=== PATIENT | female | born 1945 | race Caucasian/White ===

== ENCOUNTER → 2017-11-11 11:41 | Outpatient (CLI) | payer MEDICARE, OTHER, SELFPAY ==
[2017-11-11 13:43] LABS: Add Manual Diff / Slide Review NO; Basophils Percent Auto 0.8 % (0-2); Eosinophils Percent Auto 1.8 % (2-4); Hematocrit 41.9 % (36-46); Hemoglobin 14.3 g/dL (12.0-16.0); Lymphocytes Percent Auto 20.6 % (25-40); Mean Corpuscular HGB Conc 34.2 % (30-36); Mean Corpuscular Hemoglobin 32.3 PG (26-34); Mean Corpuscular Volume 94.5 fL (80-100); Monocytes Percent Auto 7.5 % (3-14); Neutrophils Absolute Auto 6000 /uL (3000-5900); Neutrophils Percent Auto 69.3 % (50-75); Platelet Count 182 X10^3/uL (150-400); Red Blood Cell Count 4.43 X10^6/uL (4.0-5.2); Red Cell Distribution Width 12.7 % (11.6-14.8); White Blood Cell Count 8.6 X10^3/uL (4.5-11.0)
[2017-11-11 14:01] LABS: Alanine Aminotransferase 56 IU/L (9-52); Albumin 4.4 g/dL (3.5-5.0); Albumin Globulin Ratio 1.5 (1.0-2.8); Alkaline Phosphatase 66 U/L (38-126); Amylase 65 U/L (30-110); Aspartate Aminotransferase 34 IU/L (14-36); Bilirubin Total 0.9 mg/dL (0.2-1.3); Blood Urea Nitrogen 30 mg/dL (7-17); Calcium 10.3 mg/dL (8.4-10.2); Carbon Dioxide 28 mmol/L (22-32); Chloride 99 mmol/L (98-107); Estimated Glomerular Filt Rate 44.2 mL/min (>60); Globulin 2.9 g/dL (1.7-4.1); Glucose 219 mg/dL (80-110); HEMOLYSIS < 15 (0-50); Sodium 138 mmol/L (137-145); Total Protein 7.3 g/dL (6.3-8.2)
[2017-11-11 14:03] LABS: Potassium 5.4 mmol/L (3.4-5.1)
[2017-11-11 14:27] LABS: TSH w/ Reflex to FT4 7.84 uIU/mL (0.47-4.68)
[2017-11-11 14:52] LABS: Free T4, Direct Thyroxine 1.56 ng/dL (0.78-2.19)
== END ==
PROVIDERS: PCP Internal Medicine; Visit Provider Internal Medicine
DX: R11.0 Nausea (principal)
CPT/HCPCS: 36415; 80053; 82150; 84439; 84443; 85025

== ENCOUNTER → 2017-11-12 10:52 | Outpatient (CLI) | payer MEDICARE, OTHER, SELFPAY ==
[2017-11-12 14:12] LABS: BUN Creatinine Ratio 25.8 (6-22); Blood Urea Nitrogen 31 mg/dL (7-17); Calcium 10.1 mg/dL (8.4-10.2); Carbon Dioxide 28 mmol/L (22-32); Chloride 100 mmol/L (98-107); Estimated Glomerular Filt Rate 44.2 mL/min (>60); Glucose 230 mg/dL (80-110); HEMOLYSIS < 15 (0-50); Potassium 5.4 mmol/L (3.4-5.1); Sodium 138 mmol/L (137-145)
== END ==
PROVIDERS: PCP Internal Medicine; Visit Provider Internal Medicine
DX: E87.5 Hyperkalemia (principal)
CPT/HCPCS: 36415; 80048

== ENCOUNTER → 2017-11-17 11:56 | Outpatient (CLI) | payer MEDICARE, OTHER, SELFPAY ==
[2017-11-17 14:04] LABS: BUN Creatinine Ratio 23.3 (6-22); Blood Urea Nitrogen 28 mg/dL (7-17); Calcium 9.7 mg/dL (8.4-10.2); Carbon Dioxide 28 mmol/L (22-32); Chloride 101 mmol/L (98-107); Estimated Glomerular Filt Rate 44.2 mL/min (>60); Glucose 175 mg/dL (80-110); HEMOLYSIS < 15 (0-50); Potassium 4.5 mmol/L (3.4-5.1); Sodium 139 mmol/L (137-145)
== END ==
PROVIDERS: PCP Internal Medicine; Visit Provider Internal Medicine
DX: E87.5 Hyperkalemia (principal)
CPT/HCPCS: 36415; 80048

== ENCOUNTER 2018-01-25 06:55 | Day surgery (SDC) | payer MEDICARE, OTHER, SELFPAY ==
[2018-01-25 07:55] VITALS: BP 95/63; PULSE 60; RESP 17; TEMP 36.3; O2SAT 99; BMI 26.5
[2018-01-25] MEDS: PROPARACAINE 0.5% OPHTH SOL 2 DROPS EYE-OP (07:55)
[2018-01-25] MEDS: CATARACT EYE COMPOUND (10 DROPS/SYRINGE) 3 DROPS EYE-OP (08:05)
[2018-01-25] MEDS: LIDOCAINE JELLY 2% 5 ML 1 APPLIC TOP (09:02)
[2018-01-25] MEDS: CHONDROIDTIN/SOD HYALURONATE 1.05 ML SYRINGE INTRAOCULA (09:02)
[2018-01-25] MEDS: PHENYLEPHRINE/LIDOCAINE VIAL (OR) 0.2 ML EYE-OP (09:03)
[2018-01-25] MEDS: MOXIFLOXACIN OPHTH DROPS 3 ML BOTTLE 2 DROPS INJ (09:03)
[2018-01-25] MEDS: TETRACAINE 0.5% OPHTH DROPS 15 ML 2 DROPS EYE-RIGHT (09:04)
[2018-01-25] MEDS: TRIAMCINOLONE 50 MG/5 ML VIAL INJ (09:04)
[2018-01-25] MEDS: BALANCED SALT IRRIG SOLN NO.2 500 ML, EPINEPHrine 1 MG IRR (09:05)
[2018-01-25 09:15] VITALS: BP 101/62; PULSE 59; RESP 16; TEMP 36.4; O2SAT 99
--- NOTE | 2018-01-25 09:16 | P.OP.PRE_ITS ---
Pre-operative Note Interval Note Changes: No
--- NOTE | 2018-01-25 09:16 | PM.PREOP ---
Pre-operative Note Interval Note Changes: No
--- NOTE | 2018-01-25 09:17 | P.OP_ITS ---
Operative Date/Time/Diagnoses Pre-op diagnosis: Nuclear cataract right eye Procedure & Clinicians Procedure: Cataract Surgery Same procedure as scheduled: Yes Surgeon: Louie Aden Anesthesia Type: MAC +/- and Sedation Operative Notes Procedure in detail: Patient brought to the operating suite. Tetracaine drops placed in the right eye. Patient was prepped and draped in sterile manner. Wire lid speculum was placed in the eye. Betadine drops were placed on the eye. This was irrigated. Lidocaine jelly was placed on the eye. A paracentesis port was created with a side-port blade. 0.1 mL 1% preservative free lidocaine was injected into the anterior chamber. The anterior chamber was deepened with viscoelastic. 2.6 mm keratome was used to create a temporal clear corneal incision. Cystotome and Utrata forceps were used to create continuous tear capsulorrhexis. Balanced salt solution was used to hydro dissect the nucleus. The phacoemulsification handpiece was inserted and the nucleus was removed using the stop and chop technique. The irrigation aspiration handpiece was inserted and the remaining cortex was removed. Anterior chamber was deepened with viscoelastic. An Dykes ZCB00 intraocular lens with a power of 21.5 was injected into the capsular bag. Irrigation aspiration handpiece was inserted and the remaining viscoelastic was removed. Incision was hydrated with balanced salt solution and found to be leak free with pressure with Weck- Jaimee sponges. 0.1 mL Vigamox injected anterior chamber. 0.3 mL Kenalog 10 mg was injected subconjunctivally. Lid speculum was removed. The patient left the operating room in excellent condition. Complications: none Condition: stable Disposition: same day surgery
== END 2018-01-25 09:30 | disposition home or self-care (01) ==
LOC: OR 06:56
PROVIDERS: PCP Internal Medicine; Visit Provider Ophthalmology
DX: H25.11 Age-related nuclear cataract, right eye (principal); I10 Essential (primary) hypertension; E11.9 Type 2 diabetes mellitus without complications; I11.9 Hypertensive heart disease without heart failure
CPT/HCPCS: J0171; J2250; J3301

== ENCOUNTER 2018-02-08 07:28 | Day surgery (SDC) | payer MEDICARE, OTHER, SELFPAY ==
[2018-02-08 07:46] VITALS: BP 108/70; PULSE 61; RESP 16; TEMP 36.2; O2SAT 97
[2018-02-08] MEDS: CATARACT EYE COMPOUND (10 DROPS/SYRINGE) 3 DROPS EYE-OP (08:07)
[2018-02-08] MEDS: PROPARACAINE 0.5% OPHTH SOL 2 DROPS EYE-OP (08:07)
--- NOTE | 2018-02-08 09:13 | SUR.OPER ---
Supine on eye stretcher, head on extension cradle secured with tape. Arms tucked at sides with blanket. Pillow under knees.
[2018-02-08] MEDS: LIDOCAINE JELLY 2% 5 ML 1 APPLIC TOP (09:15)
[2018-02-08] MEDS: PHENYLEPHRINE/LIDOCAINE VIAL (OR) 0.2 ML EYE-OP (09:15)
[2018-02-08] MEDS: CHONDROIDTIN/SOD HYALURONATE 1.05 ML SYRINGE INTRAOCULA (09:16)
[2018-02-08] MEDS: TETRACAINE 0.5% OPHTH DROPS 15 ML 2 DROPS EYE-LEFT (09:16)
[2018-02-08] MEDS: MOXIFLOXACIN OPHTH DROPS 3 ML BOTTLE 2 DROPS INJ (09:16)
[2018-02-08] MEDS: TRIAMCINOLONE 50 MG/5 ML VIAL INJ (09:17)
[2018-02-08] MEDS: BALANCED SALT IRRIG SOLN NO.2 500 ML, EPINEPHrine 1 MG IRR (09:17)
[2018-02-08 09:30] VITALS: BP 106/68; PULSE 59; RESP 15; TEMP 36.4; O2SAT 97
--- NOTE | 2018-02-08 09:33 | P.OP.PRE_ITS ---
Pre-operative Note Interval Note Changes: No
--- NOTE | 2018-02-08 09:33 | PM.PREOP ---
Pre-operative Note Interval Note Changes: No
--- NOTE | 2018-02-08 09:34 | P.OP_ITS ---
Operative Date/Time/Diagnoses Pre-op diagnosis: Nuclear Cataract Left eye Post-op diagnosis: same Procedure & Clinicians Surgeon: Louie Aden Anesthesia Type: MAC +/- and Sedation Operative Notes Procedure in detail: Patient brought to the operating suite. Tetracaine drops placed in the left eye. Patient was prepped and draped in sterile manner. Wire lid speculum was placed in the eye. Betadine drops were placed on the eye. This was irrigated. Lidocaine jelly was placed on the eye. A paracentesis port was created with a side-port blade. 0.1 mL 1% preservative free lidocaine was injected into the anterior chamber. The anterior chamber was deepened with viscoelastic. 2.6 mm keratome was used to create a temporal clear corneal incision. Cystotome and Utrata forceps were used to create continuous tear capsulorrhexis. Balanced salt solution was used to hydro dissect the nucleus. The phacoemulsification handpiece was inserted and the nucleus was removed using the stop and chop technique. The irrigation aspiration handpiece was inserted and the remaining cortex was removed. Anterior chamber was deepened with viscoelastic. An Dykes ZCB00 intraocular lens with a power of 21.0 was injected into the capsular bag. Irrigation aspiration handpiece was inserted and the remaining viscoelastic was removed. Incision was hydrated with balanced salt solution and found to be leak free with pressure with Weck- Jaimee sponges. 0.1 mL Vigamox injected anterior chamber. 0.3 mL Kenalog 10 mg was injected subconjunctivally. Lid speculum was removed. The patient left the operating room in excellent condition. Complications: none Condition: stable Disposition: same day surgery
== END 2018-02-08 09:42 | disposition home or self-care (01) ==
PROVIDERS: PCP Internal Medicine; Visit Provider Ophthalmology
DX: H25.12 Age-related nuclear cataract, left eye (principal); I10 Essential (primary) hypertension; E11.9 Type 2 diabetes mellitus without complications; Z79.84 Long term (current) use of oral hypoglycemic drugs; I51.9 Heart disease, unspecified; Z95.818 Presence of other cardiac implants and grafts
CPT/HCPCS: J0171; J2250; J3010; J3301

== ENCOUNTER → 2018-03-23 10:17 | Outpatient (CLI) | payer OTHER, MEDICARE, SELFPAY ==
--- NOTE | 2018-03-23 | DI.CT.S_ITS ---
PROCEDURE: CT LE RT WO CON INDICATIONS: RIGHT ANKLE PAIN TECHNIQUE: Noncontrast 1-1.5 mm axial sections acquired from above the tibiotalar joint to the bottom of the calcaneus, with coronal and sagittal reformats. COMPARISON: None. FINDINGS: Image quality: Excellent. Bones: Patient is status post prior surgery in great toe for hallux valgus correction with post osteotomy changes in distal shaft of first metatarsal bone and fusion of first interphalangeal joint. No gross hardware loosening or failure is seen. Osteoarthritic changes are noted in first MTP joint. Osteoarthritic changes also noted throughout second through fifth interphalangeal joints. No acute fracture or dislocation is seen. No suspicious bony lesion is identified. Incidentally noted of healing distal fibular shaft fracture with callous formation surrounding fracture sites. No significant displacement or angulation. Soft tissues: A there is no gross soft tissue mass or fluid collection. Plantar neurosis is grossly intact. Achilles tendon is intact. Extensor, flexor, and peroneus tendons are intact. IMPRESSION: 1. Post surgical changes from prior osteotomy in first metatarsal head and fusion of first interphalangeal joint for hallux valgus deformity correction. No gross hardware complication. 2. Healing oblique distal fibular shaft fracture with no significant displacement or angulation. No other fracture or dislocation is seen. 3. Mild osteoarthritic changes in first MTP joint and second through fifth interphalangeal joints. Dictated by: Maikel Alfred M.D. on 03/23/2018 at 14:51 Approved by: Maikel Alfred M.D. on 03/23/2018 at 15:04
== END ==
PROVIDERS: PCP Internal Medicine; Visit Provider Orthopaedic Surgery
DX: M25.571 Pain in right ankle and joints of right foot (principal); M19.071 Primary osteoarthritis, right ankle and foot; S82.831D Other fracture of upper and lower end of right fibula, subsequent encounter for closed fracture with routine healing; Z98.1 Arthrodesis status
CPT/HCPCS: 73700

== ENCOUNTER 2018-05-26 09:44 | Emergency (ER) | payer MEDICARE, OTHER, SELFPAY ==
[2018-05-26 09:52] VITALS: BP 134/81; PULSE 93; RESP 20; TEMP 36.3; O2SAT 93; BMI 26.2
--- NOTE | 2018-05-26 09:54 | ED.CHESTPAIN ---
HPI - Chest Pain General Chief Complaint: Chest Pain Stated Complaint: 'Heart Problem' Time Seen by Provider: 05/26/18 09:54 Source: patient Mode of arrival: ambulatory Limitations: no limitations History of Present Illness HPI narrative: 72F non smoker with history of CHF presents with a family friend and chief complaint of SOB for the past couple days. patient complains of increased shortness of breath with exertion or lying flat. She has some increased swelling in her ankles. She denies any significant salty food or increase fluid intake nor has she missed any of her Lasix. She denies chest pain she is not dizzy or lightheaded. She denies fever, chills nor cough. MD complaint: other Onset (ago): day(s) Duration: constant Pain radiation: none Relieving factors: rest Exacerbating factors: exertion Associated symptoms: dyspnea and leg swelling Related Data Home Medications Medication Instructions Recorded Confirmed carvedilol 12.5 mg PO BID #0 12/22/09 05/26/18 Menthol/M Salicylate 1 applic TOPICAL TID PRN 05/26/18 05/26/18 aspirin 81 mg PO DAILY 05/26/18 05/26/18 capsaicin 1 applic TOPICAL QID 05/26/18 05/26/18 cetirizine 10 mg PO CONT 05/26/18 05/26/18 cholecalciferol (vitamin D3) 2,000 unit PO DAILY 05/26/18 05/26/18 [Vitamin D3] fluticasone 2 spray INTRANASAL DAILY 05/26/18 05/26/18 furosemide 40 mg PO BID PRN 05/26/18 05/26/18 glimepiride 2 mg PO DAILY 05/26/18 05/26/18 glucose 16 g PO Q15M PRN 05/26/18 05/26/18 nitroglycerin [Nitrostat] 0.4 mg SUBLINGUAL PRN PRN 05/26/18 05/26/18 omeprazole 40 mg PO DAILY 05/26/18 05/26/18 ondansetron 8 mg PO Q8H PRN 05/26/18 05/26/18 peg 400-propylene glycol 1 drp EYE-BOTH QID 05/26/18 05/26/18 sacubitril-valsartan 1 tab PO BID 05/26/18 05/26/18 sennosides [senna] 8.6 mg PO BEDTIME 05/26/18 05/26/18 simvastatin 20 mg PO BEDTIME 05/26/18 05/26/18 spironolactone 37.5 mg PO DAILY 05/26/18 05/26/18 Allergies Allergy/AdvReac Type Severity Reaction Status Date / Time codeine [CODEINE] Allergy Severe rash, Verified 05/26/18 09:52 vomiting prochlorperazine Allergy Severe rash, Verified 05/26/18 09:52 [From COMPAZINE] vomiting Review of Systems Constitutional Denies chills, Reports fatigue, Denies fever(s), Denies lethargy and Reports weakness Eyes Denies change in vision, Denies eye discharge, Denies irritation and Denies loss of vision ENT Ears, Nose, Mouth, and Throat: Denies change in voice, Denies neck pain and Denies sore throat Cardiovascular Denies chest pain, Reports pedal edema, Reports edema, Denies irregular heart rhythm, Denies lightheadedness, Denies palpitations, Reports dyspnea, Reports dyspnea on exertion and Denies orthopnea Respiratory Denies cough, Reports dyspnea, Reports dyspnea on exertion and Denies wheezing Gastrointestinal Gastrointestinal: Denies abdominal pain, Denies change in bowel habits, Denies diarrhea, Denies nausea and Denies vomiting Genitourinary Denies hematuria, Denies flank pain, Denies urinary incontinence and Denies urinary urgency Musculoskeletal Denies neck pain Integumentary/Breasts Denies pruritus, Denies erythema, Denies rash and Denies wounds Neurologic Denies confusion, Denies loss of vision and Reports weakness Psychiatric Denies anxiety, Denies confusion, Denies depression, Denies homicidal ideation and Denies suicidal ideation Endocrine Reports fatigue and Denies palpitations Hematologic/Lymphatic Denies easy bruising Allergic/Immunologic Denies wheezing PFSH Social History household members: friend(s) and none Smoking Status: Never smoker Social History household members: friend(s) and none Smoking Status: Never smoker Exam Narrative Exam Narrative: GENERAL: 72-year-old female appears younger than stated age and is in mild distress. No obvious respiratory difficulty HEAD: Atraumatic. Normocephalic. No temporal or scalp tenderness. EYES: Pupils equal round and reactive. Extraocular motions intact. No scleral icterus. No injection or drainage. ENT: Nose without bleeding, purulent drainage or septal hematoma. Throat without erythema, tonsillar hypertrophy or exudate. Uvula midline. Airway patent. NECK: Trachea midline. No JVD or lymphadenopathy. Supple, nontender, no meningeal signs. CARDIOVASCULAR: Regular rate and rhythm without murmurs, gallops, or rubs. RESPIRATORY: bibasilar crackles. GASTROINTESTINAL: Abdomen soft, non-tender, nondistended. No hepato-splenomegaly, or palpable masses. No guarding. EXTREMITIES: mild bilateral lower extremity pitting edema BACK: Nontender without deformity or crepitance. No flank tenderness. NEURO: AOx3. SKIN: No rash or erythema. Initial Vital Signs Initial Vital Signs: Vital Signs Temperature 97.4 F L 05/26/18 09:52 Pulse Rate 93 H 05/26/18 09:52 Respiratory Rate 20 05/26/18 09:52 Blood Pressure 134/81 05/26/18 09:52 Pulse Oximetry 93 05/26/18 09:52 Course Orders Ordered: Discontinued Medications Furosemide (Lasix) 40 mg IV NOW ONE Stop: 05/26/18 12:04 Last Admin: 05/26/18 12:38 Dose: 40 mg Sodium Chloride (Normal Saline 0.9%) 1,000 mls @ 150 mls/hr IV CONT AMARJIT Last Infusion: 05/26/18 12:06 Dose: 0 mls/hr Admin: 05/26/18 11:38 Dose: 150 mls/hr Vital Signs - 8 hr 05/26/18 13:03 05/26/18 15:25 Pulse Rate 79 74 Respiratory Rate 21 25 H Blood Pressure 118/61 Blood Pressure [Left Arm] 124/71 Pulse Oximetry 92 93 MDM - Chest Pain Medical Records Data Attestation: I reviewed the patient's medical records. Lab Data Attestation: I reviewed the patient's lab results. Result diagrams: 05/26/18 10:00 05/26/18 10:00 Lab Results 05/26/18 05/26/18 05/26/18 Range/Units 10:00 10:00 10:00 WBC 11.1 H (4.5-11.0) X10^3/uL RBC 4.27 (4.0-5.2) X10^6/uL Hgb 12.4 (12.0-16.0) g/dL Hct 38.5 (36-46) % MCV 90.2 (80-100) fL MCH 29.1 (26-34) PG MCHC 32.3 (30-36) % RDW 13.6 (11.6-14.8) % Plt Count 444 H (150-400) X10^3/uL Neut % (Auto) 78.1 H (50-75) % Lymph % (Auto) 13.0 L (25-40) % [place] % (Auto) 6.6 (3-14) % Eos % (Auto) 1.5 L (2-4) % Baso % (Auto) 0.8 (0-2) % Neut # (Auto) 8600 H (8352-0614) /uL Lymph # (Auto) 1400 (8673-7177) /uL [place] # (Auto) 700 (0-900) /uL Eos # (Auto) 200 (0-450) /uL Baso # (Auto) 100 (0-100) /uL D-Dimer 597 H (<230) ng/mL Sodium 138 (137-145) mmol/L Potassium 4.5 (3.4-5.1) mmol/L Chloride 104 (98-107) mmol/L Carbon Dioxide 23 (22-32) mmol/L BUN 25 H (7-17) mg/dL Creatinine 1.20 H (0.52-1.04) mg/dL Estimated GFR 44.2 L (>60) mL/min BUN/Creatinine Ratio 20.8 (6-22) Glucose 190 H (80-110) mg/dL Calcium 8.9 (8.4-10.2) mg/dL Total Bilirubin 0.8 (0.2-1.3) mg/dL AST 43 H (14-36) IU/L ALT 51 (9-52) IU/L Alkaline Phosphatase 99 (38-126) U/L Total Creatine Kinase 32 (30-135) U/L CK-MB (CK-2) TNP CK-MB (CK-2) Rel Index TNP Troponin I < 0.012 (0.01-0.034) ng/mL B-Natriuretic Peptide (<100) Total Protein 7.1 (6.3-8.2) g/dL Albumin 3.7 (3.5-5.0) g/dL Globulin 3.4 (1.7-4.1) g/dL Albumin/Globulin Ratio 1.1 (1.0-2.8) Lipase 44 (23-300) U/L 05/26/18 Range/Units 10:00 WBC (4.5-11.0) X10^3/uL RBC (4.0-5.2) X10^6/uL Hgb (12.0-16.0) g/dL Hct (36-46) % MCV (80-100) fL MCH (26-34) PG MCHC (30-36) % RDW (11.6-14.8) % Plt Count (150-400) X10^3/uL Neut % (Auto) (50-75) % Lymph % (Auto) (25-40) % [place] % (Auto) (3-14) % Eos % (Auto) (2-4) % Baso % (Auto) (0-2) % Neut # (Auto) (4553-2549) /uL Lymph # (Auto) (6312-0105) /uL [place] # (Auto) (0-900) /uL Eos # (Auto) (0-450) /uL Baso # (Auto) (0-100) /uL D-Dimer (<230) ng/mL Sodium (137-145) mmol/L Potassium (3.4-5.1) mmol/L Chloride (98-107) mmol/L Carbon Dioxide (22-32) mmol/L BUN (7-17) mg/dL Creatinine (0.52-1.04) mg/dL Estimated GFR (>60) mL/min BUN/Creatinine Ratio (6-22) Glucose (80-110) mg/dL Calcium (8.4-10.2) mg/dL Total Bilirubin (0.2-1.3) mg/dL AST (14-36) IU/L ALT (9-52) IU/L Alkaline Phosphatase (38-126) U/L Total Creatine Kinase (30-135) U/L CK-MB (CK-2) CK-MB (CK-2) Rel Index Troponin I (0.01-0.034) ng/mL B-Natriuretic Peptide 1680 H (<100) Total Protein (6.3-8.2) g/dL Albumin (3.5-5.0) g/dL Globulin (1.7-4.1) g/dL Albumin/Globulin Ratio (1.0-2.8) Lipase (23-300) U/L Urine Dip Bedside Urine Glucose Negative Bedside Urine Bilirubin - Negative Bedside Urine Ketone - Negative Urine Specific [place] 1.015 Bedside Urine Occult Blood - Negative Bedside Urine pH 6.5 Bedside Urine Protein - Negative Bedside Urine Urobilinogen - Negative Bedside Urine Nitrite - Negative Bedside Urine Leukocytes - Negative Esterase Imaging Data CT scan - chest: Radiologist's impression: [address] [address] [address] Scan Report Signed Patient: Sudha LarsenR#: [id number] : 1946Acct:[id number] Age/Sex: 72 / FDate of Service: 05/26/18 Loc: ED Accession Number: [id number] Procedure: CT angio chest PE protocol Ordering Provider: Yousif Fuller D.O. PROCEDURE: CT ANGIO CHEST PE PROTOCOL INDICATIONS: chest pain, shortness of breath, hypoxia, critical dimer TECHNIQUE: After the administration of intravenous contrast, 2 mm thick sections acquired from the pulmonary apices to the posterior costophrenic angles. 3-dimensional maximum intensity projection (MIP) coronal and sagittal reformats were then acquired through the thorax. For radiation dose reduction, the following was used: automated exposure control, adjustment of mA and/or kV according to patient size. COMPARISON: [facility], CT, ANGIOGRAPHY CHEST AND ABDOMEN, 12/06/2012, 15:39. FINDINGS: Image quality: Excellent. Pulmonary arteries: Pulmonary arteries are normal in size, and demonstrate no intraluminal filling defects to suggest central pulmonary embolism. Lungs and pleura: There are small bilateral pleural effusion. Hazy groundglass opacities are seen scattered in bilateral lung polanco suggestive of pulmonary edema versus pneumonitis. 9 x 3 mm nodular density adjacent to lateral pleura of right lower lobe is seen. Small infiltrate/atelectasis are seen scattered in bilateral lower lung polanco. No pneumothorax. Central and peripheral airways are patent. Mediastinum: Heart size is markedly enlarged particularly involving left atrium and left ventricle, without pericardial effusion. Prominent mediastinal lymph nodes are seen measures up to 12 cm in short axis diameter in the precarinal space and up to 15 mm in short axis diameter in the subcarinal space.. Thoracic aorta is normal in caliber and enhancement. Esophagus is normal in caliber, without hiatal hernia. Bones and chest wall: Left chest wall pacemaker leads are seen in the region of right atrium, right ventricle and left ventricle. Breast implant is again seen. There is interval removal of previously noted left-sided breast implant. No suspicious bony lesions. Ribs and thoracic spine appear intact throughout. Thyroid gland is within normal limits. No axillary or supraclavicular adenopathy. Abdomen: Visualized upper abdominal solid organs appear normal in the early arterial phase of enhancement. IMPRESSION: 1. No evidence of pulmonary emboli. No thoracic aortic aneurysm. 2. Marked cardiomegaly, no pericardial effusion. Enlarged mediastinal lymph nodes, which may represent reactive inflammatory lymph nodes. 3. Small bilateral pleural effusions. Hazy groundglass opacity scattered throughout bilateral lung polanco suggestive of pulmonary edema/pneumonitis. No pneumothorax. 4. Patchy infiltrate/atelectasis scattered in bilateral lung bases. #3 mm subpleural nodule involving lateral aspect of right lower lobe, which could represent nodule infiltrate. Followup CT study is recommended. 5. Prior removal of left breast implant. Right breast implant appears grossly intact. Left chest wall pacemaker in situ. Dictated by: Maikel Alfred M.D. on 05/26/2018 at 11:07 Approved by: Maikel Alfred M.D. on 05/26/2018 at 11:28 Discharge Plan Departure Patient Disposition: Home Clinical Impression: Acute CHF Qualifiers: Heart failure type: unspecified Qualified Code(s): I50.9 - Heart failure, unspecified Discharge Date/Time: 05/26/18 15:26 Interventions: ED Discharge Assessment Last Done: 05/26/18 15:25 Instructions: DI for Heart Failure Activity Restrictions/Additional Instructions: *You have been diagnosed with [ acute CHF ] *What to do: * you currently take furosemide 40 mg by mouth twice daily. Please take an extra 1 at lunchtime each of the next 3 days. *Follow up with your primary care provider in 2-3 days, call for an appointment. Let them know you were seen in the Emergency Department and that we ask that you be seen in follow up *Return to ER if you should have any new, worsening or concerning symptoms Prescriptions: No Action carvedilol 12.5 mg Tablet 12.5 mg PO BID Qty: 0 RF: 0 furosemide 40 mg Tablet 40 mg PO BID PRN (Reason: extra fluid) RF: 0 sennosides [senna] 8.6 mg Tablet 8.6 mg PO BEDTIME RF: 0 cetirizine 10 mg Tablet 10 mg PO CONT RF: 0 omeprazole 40 mg Capsule,Delayed Release(Dr/Ec) 40 mg PO DAILY RF: 0 aspirin 81 mg Tablet,Delayed Release (Dr/Ec) 81 mg PO DAILY RF: 0 spironolactone 25 mg Tablet 37.5 mg PO DAILY RF: 0 glimepiride 2 mg Tablet 2 mg PO DAILY RF: 0 simvastatin 20 mg Tablet 20 mg PO BEDTIME RF: 0 glucose 4 gram Tablet,Chewable 16 g PO Q15M PRN (Reason: blood sugar) RF: 0 nitroglycerin [Nitrostat] 0.4 mg Tablet, Sublingual 0.4 mg Sublingual PRN PRN (Reason: Chest Pain) RF: 0 capsaicin 0.025 % Cream 1 applic TOPICAL QID RF: 0 ondansetron 4 mg Tablet,Disintegrating 8 mg PO Q8H PRN (Reason: Nausea) RF: 0 fluticasone 50 mcg/actuation [place],Suspension 2 spray INTRANASAL DAILY RF: 0 cholecalciferol (vitamin D3) [Vitamin D3] 1,000 unit Capsule 2,000 unit PO DAILY RF: 0 peg 400-propylene glycol 0.4-0.3 % Drops 1 drp EYE-BOTH QID RF: 0 sacubitril-valsartan 24-26 mg Tablet 1 tab PO BID RF: 0 Menthol/M Salicylate 15 % cream 1 applic Topical TID PRN (Reason: pain) RF: 0 Referrals: Roman Arenas MD [Primary Care Provider] -
--- NOTE | 2018-05-26 10:00 | DI.RAD.S_ITS ---
PROCEDURE: XR CHEST 2V INDICATIONS: SOB, CP TECHNIQUE: 2 views of the chest were acquired. COMPARISON: [facility], , CHEST 1 VIEW, 11/16/2016, 0:56. FINDINGS: Surgical changes and devices: Left chest wall cardiac device position is unchanged. Lungs and pleura: There is pulmonary vascular congestion. Underlying left lower lobe infiltrate cannot be excluded. No pleural effusions or pneumothorax. Mediastinum: Mediastinal contours are normal. Heart size is enlarged. Bones and chest wall: No suspicious bony abnormalities. Soft tissues appear unremarkable. IMPRESSION: Cardiomegaly and congestion. Cannot rule out small left infrahilar infiltrate. No gross pneumothorax. Dictated by: Maikel Alfred M.D. on 05/26/2018 at 10:43 Approved by: Maikel Alfred M.D. on 05/26/2018 at 10:45
[2018-05-26 10:08] LABS: Add Manual Diff / Slide Review NO; Basophils Absolute Auto 100 /uL (0-100); Basophils Percent Auto 0.8 % (0-2); Eosinophils Absolute Auto 200 /uL (0-450); Eosinophils Percent Auto 1.5 % (2-4); Hematocrit 38.5 % (36-46); Hemoglobin 12.4 g/dL (12.0-16.0); Lymphocytes Absolute Auto 1400 /uL (1100-4500); Mean Corpuscular HGB Conc 32.3 % (30-36); Mean Corpuscular Hemoglobin 29.1 PG (26-34); Mean Corpuscular Volume 90.2 fL (80-100); Monocytes Absolute Auto 700 /uL (0-900); Monocytes Percent Auto 6.6 % (3-14); Neutrophils Absolute Auto 8600 /uL (1500-7000); Neutrophils Percent Auto 78.1 % (50-75); Platelet Count 444 X10^3/uL (150-400); Red Blood Cell Count 4.27 X10^6/uL (4.0-5.2); Red Cell Distribution Width 13.6 % (11.6-14.8); White Blood Cell Count 11.1 X10^3/uL (4.5-11.0)
[2018-05-26 10:19] LABS: D Dimer 597 ng/mL (<230)
[2018-05-26 10:20] LABS: Alanine Aminotransferase 51 IU/L (9-52); Albumin 3.7 g/dL (3.5-5.0); Albumin Globulin Ratio 1.1 (1.0-2.8); Alkaline Phosphatase 99 U/L (38-126); Aspartate Aminotransferase 43 IU/L (14-36); BUN Creatinine Ratio 20.8 (6-22); Bilirubin Total 0.8 mg/dL (0.2-1.3); Blood Urea Nitrogen 25 mg/dL (7-17); Calcium 8.9 mg/dL (8.4-10.2); Carbon Dioxide 23 mmol/L (22-32); Chloride 104 mmol/L (98-107); Creatine Kinase 32 U/L (30-135); Estimated Glomerular Filt Rate 44.2 mL/min (>60); Globulin 3.4 g/dL (1.7-4.1); Glucose 190 mg/dL (80-110); HEMOLYSIS < 15 (0-50); Lipase 44 U/L (23-300); Potassium 4.5 mmol/L (3.4-5.1); Sodium 138 mmol/L (137-145); Total Protein 7.1 g/dL (6.3-8.2)
[2018-05-26 10:31] LABS: Troponin I < 0.012 ng/mL (0.01-0.034)
--- NOTE | 2018-05-26 10:45 | DI.CT.S_ITS ---
PROCEDURE: CT ANGIO CHEST PE PROTOCOL INDICATIONS: chest pain, shortness of breath, hypoxia, critical dimer TECHNIQUE: After the administration of intravenous contrast, 2 mm thick sections acquired from the pulmonary apices to the posterior costophrenic angles. 3-dimensional maximum intensity projection (MIP) coronal and sagittal reformats were then acquired through the thorax. For radiation dose reduction, the following was used: automated exposure control, adjustment of mA and/or kV according to patient size. COMPARISON: , CT, ANGIOGRAPHY CHEST AND ABDOMEN, 12/06/2012, 15:39. FINDINGS: Image quality: Excellent. Pulmonary arteries: Pulmonary arteries are normal in size, and demonstrate no intraluminal filling defects to suggest central pulmonary embolism. Lungs and pleura: There are small bilateral pleural effusion. Hazy groundglass opacities are seen scattered in bilateral lung polanco suggestive of pulmonary edema versus pneumonitis. 9 x 3 mm nodular density adjacent to lateral pleura of right lower lobe is seen. Small infiltrate/atelectasis are seen scattered in bilateral lower lung polanco. No pneumothorax. Central and peripheral airways are patent. Mediastinum: Heart size is markedly enlarged particularly involving left atrium and left ventricle, without pericardial effusion. Prominent mediastinal lymph nodes are seen measures up to 12 cm in short axis diameter in the precarinal space and up to 15 mm in short axis diameter in the subcarinal space.. Thoracic aorta is normal in caliber and enhancement. Esophagus is normal in caliber, without hiatal hernia. Bones and chest wall: Left chest wall pacemaker leads are seen in the region of right atrium, right ventricle and left ventricle. Breast implant is again seen. There is interval removal of previously noted left-sided breast implant. No suspicious bony lesions. Ribs and thoracic spine appear intact throughout. Thyroid gland is within normal limits. No axillary or supraclavicular adenopathy. Abdomen: Visualized upper abdominal solid organs appear normal in the early arterial phase of enhancement. IMPRESSION: 1. No evidence of pulmonary emboli. No thoracic aortic aneurysm. 2. Marked cardiomegaly, no pericardial effusion. Enlarged mediastinal lymph nodes, which may represent reactive inflammatory lymph nodes. 3. Small bilateral pleural effusions. Hazy groundglass opacity scattered throughout bilateral lung polanco suggestive of pulmonary edema/pneumonitis. No pneumothorax. 4. Patchy infiltrate/atelectasis scattered in bilateral lung bases. #3 mm subpleural nodule involving lateral aspect of right lower lobe, which could represent nodule infiltrate. Followup CT study is recommended. 5. Prior removal of left breast implant. Right breast implant appears grossly intact. Left chest wall pacemaker in situ. Dictated by: Maikel Alfred M.D. on 05/26/2018 at 11:07 Approved by: Maikel Alfred M.D. on 05/26/2018 at 11:28
[2018-05-26 11:16] LABS: B Type Natriuretic Peptide 1680 (<100)
[2018-05-26] MEDS: SODIUM CHLORIDE 0.9% 1,000 ML 150 ML IV (11:38)
[2018-05-26 11:50] VITALS: BP 126/66; PULSE 72; RESP 26; O2SAT 93
[2018-05-26] MEDS: FUROSEMIDE 40 MG/4 ML VIAL IV (12:38)
[2018-05-26 13:03] VITALS: BP 124/71; PULSE 79; RESP 21; O2SAT 92
[2018-05-26 15:25] VITALS: BP 118/61; PULSE 74; RESP 25; O2SAT 93
--- NOTE | 2018-05-26 20:20 | ED_ITS ---
HPI - Chest Pain General Chief Complaint: Chest Pain Stated Complaint: 'Heart Problem' Time Seen by Provider: 05/26/18 09:54 Source: patient Mode of arrival: ambulatory Limitations: no limitations History of Present Illness HPI narrative: 72F non smoker with history of CHF presents with a family friend and chief complaint of SOB for the past couple days. patient complains of increased shortness of breath with exertion or lying flat. She has some increased swelling in her ankles. She denies any significant salty food or increase fluid intake nor has she missed any of her Lasix. She denies chest pain she is not dizzy or lightheaded. She denies fever, chills nor cough. MD complaint: other Onset (ago): day(s) Duration: constant Pain radiation: none Relieving factors: rest Exacerbating factors: exertion Associated symptoms: dyspnea and leg swelling Related Data Home Medications Medication Instructions Recorded Confirmed carvedilol 12.5 mg PO BID #0 12/22/09 05/26/18 Menthol/M Salicylate 1 applic TOPICAL TID PRN 05/26/18 05/26/18 aspirin 81 mg PO DAILY 05/26/18 05/26/18 capsaicin 1 applic TOPICAL QID 05/26/18 05/26/18 cetirizine 10 mg PO CONT 05/26/18 05/26/18 cholecalciferol (vitamin D3) 2,000 unit PO DAILY 05/26/18 05/26/18 [Vitamin D3] fluticasone 2 spray INTRANASAL DAILY 05/26/18 05/26/18 furosemide 40 mg PO BID PRN 05/26/18 05/26/18 glimepiride 2 mg PO DAILY 05/26/18 05/26/18 glucose 16 g PO Q15M PRN 05/26/18 05/26/18 nitroglycerin [Nitrostat] 0.4 mg SUBLINGUAL PRN PRN 05/26/18 05/26/18 omeprazole 40 mg PO DAILY 05/26/18 05/26/18 ondansetron 8 mg PO Q8H PRN 05/26/18 05/26/18 peg 400-propylene glycol 1 drp EYE-BOTH QID 05/26/18 05/26/18 sacubitril-valsartan 1 tab PO BID 05/26/18 05/26/18 sennosides [senna] 8.6 mg PO BEDTIME 05/26/18 05/26/18 simvastatin 20 mg PO BEDTIME 05/26/18 05/26/18 spironolactone 37.5 mg PO DAILY 05/26/18 05/26/18 Allergies Allergy/AdvReac Type Severity Reaction Status Date / Time codeine [CODEINE] Allergy Severe rash, Verified 05/26/18 09:52 vomiting prochlorperazine Allergy Severe rash, Verified 05/26/18 09:52 [From COMPAZINE] vomiting Review of Systems Constitutional Denies chills, Reports fatigue, Denies fever(s), Denies lethargy and Reports weakness Eyes Denies change in vision, Denies eye discharge, Denies irritation and Denies loss of vision ENT Ears, Nose, Mouth, and Throat: Denies change in voice, Denies neck pain and Denies sore throat Cardiovascular Denies chest pain, Reports pedal edema, Reports edema, Denies irregular heart rhythm, Denies lightheadedness, Denies palpitations, Reports dyspnea, Reports dyspnea on exertion and Denies orthopnea Respiratory Denies cough, Reports dyspnea, Reports dyspnea on exertion and Denies wheezing Gastrointestinal Gastrointestinal: Denies abdominal pain, Denies change in bowel habits, Denies diarrhea, Denies nausea and Denies vomiting Genitourinary Denies hematuria, Denies flank pain, Denies urinary incontinence and Denies urinary urgency Musculoskeletal Denies neck pain Integumentary/Breasts Denies pruritus, Denies erythema, Denies rash and Denies wounds Neurologic Denies confusion, Denies loss of vision and Reports weakness Psychiatric Denies anxiety, Denies confusion, Denies depression, Denies homicidal ideation and Denies suicidal ideation Endocrine Reports fatigue and Denies palpitations Hematologic/Lymphatic Denies easy bruising Allergic/Immunologic Denies wheezing PFSH Social History household members: friend(s) and none Smoking Status: Never smoker Social History household members: friend(s) and none Smoking Status: Never smoker Exam Narrative Exam Narrative: GENERAL: 72-year-old female appears younger than stated age an d is in mild distress. No obvious respiratory difficulty HEAD: Atraumatic. Normocephalic. No temporal or scalp tenderness. EYES: Pupils equal round and reactive. Extraocular motions intact. No scleral icterus. No injection or drainage. ENT: Nose without bleeding, purulent drainage or septal hematoma. Throat without erythema, tonsillar hypertrophy or exudate. Uvula midline. Airway patent. NECK: Trachea midline. No JVD or lymphadenopathy. Supple, nontender, no meningeal signs. CARDIOVASCULAR: Regular rate and rhythm without murmurs, gallops, or rubs. RESPIRATORY: bibasilar crackles. GASTROINTESTINAL: Abdomen soft, non-tender, nondistended. No hepato- splenomegaly, or palpable masses. No guarding. EXTREMITIES: mild bilateral lower extremity pitting edema BACK: Nontender without deformity or crepitance. No flank tenderness. NEURO: AOx3. SKIN: No rash or erythema. Initial Vital Signs Initial Vital Signs: Vital Signs Temperature 97.4 F L 05/26/18 09:52 Pulse Rate 93 H 05/26/18 09:52 Respiratory Rate 20 05/26/18 09:52 Blood Pressure 134/81 05/26/18 09:52 Pulse Oximetry 93 05/26/18 09:52 Course Orders Ordered: Discontinued Medications Furosemide (Lasix) 40 mg IV NOW ONE Stop: 05/26/18 12:04 Last Admin: 05/26/18 12:38 Dose: 40 mg Sodium Chloride (Normal Saline 0.9%) 1,000 mls @ 150 mls/hr IV CONT AMARJIT Last Infusion: 05/26/18 12:06 Dose: 0 mls/hr Admin: 05/26/18 11:38 Dose: 150 mls/hr Vital Signs - 8 hr 05/26/18 13:03 05/26/18 15:25 Pulse Rate 79 74 Respiratory Rate 21 25 H Blood Pressure 118/61 Blood Pressure [Left Arm] 124/71 Pulse Oximetry 92 93 MDM - Chest Pain Medical Records Data Attestation: I reviewed the patient's medical records. Lab Data Attestation: I reviewed the patient's lab results. Result diagrams: 05/26/18 10:00 05/26/18 10:00 Lab Results 05/26/18 05/26/18 05/26/18 Range/Units 10:00 10:00 10:00 WBC 11.1 H (4.5-11.0) X10^3/uL RBC 4.27 (4.0-5.2) X10^6/uL Hgb 12.4 (12.0-16.0) g/dL Hct 38.5 (36-46) % MCV 90.2 (80-100) fL MCH 29.1 (26-34) PG MCHC 32.3 (30-36) % RDW 13.6 (11.6-14.8) % Plt Count 444 H (150-400) X10^3/uL Neut % (Auto) 78.1 H (50-75) % Lymph % (Auto) 13.0 L (25-40) % [place] % (Auto) 6.6 (3-14) % Eos % (Auto) 1.5 L (2-4) % Baso % (Auto) 0.8 (0-2) % Neut # (Auto) 8600 H (4948-8864) /uL Lymph # (Auto) 1400 (5810-2966) /uL [place] # (Auto) 700 (0-900) /uL Eos # (Auto) 200 (0-450) /uL Baso # (Auto) 100 (0-100) /uL D-Dimer 597 H (<230) ng/mL Sodium 138 (137-145) mmol/L Potassium 4.5 (3.4-5.1) mmol/L Chloride 104 (98-107) mmol/L Carbon Dioxide 23 (22-32) mmol/L BUN 25 H (7-17) mg/dL Creatinine 1.20 H (0.52-1.04) mg/dL Estimated GFR 44.2 L (>60) mL/min BUN/Creatinine Ratio 20.8 (6-22) Glucose 190 H (80-110) mg/dL Calcium 8.9 (8.4-10.2) mg/dL Total Bilirubin 0.8 (0.2-1.3) mg/dL AST 43 H (14-36) IU/L ALT 51 (9-52) IU/L Alkaline Phosphatase 99 (38-126) U/L Total Creatine Kinase 32 (30-135) U/L CK-MB (CK-2) TNP CK-MB (CK-2) Rel Index TNP Troponin I < 0.012 (0.01-0.034) ng/mL B-Natriuretic Peptide (<100) Total Protein 7.1 (6.3-8.2) g/dL Albumin 3.7 (3.5-5.0) g/dL Globulin 3.4 (1.7-4.1) g/dL Albumin/Globulin Ratio 1.1 (1.0-2.8) Lipase 44 (23-300) U/L 05/26/18 Range/Units 10:00 WBC (4.5-11.0) X10^3/uL RBC (4.0-5.2) X10^6/uL Hgb (12.0-16.0) g/dL Hct (36-46) % MCV (80-100) fL MCH (26-34) PG MCHC (30-36) % RDW (11.6-14.8) % Plt Count (150-400) X10^3/uL Neut % (Auto) (50-75) % Lymph % (Auto) (25-40) % [place] % (Auto) (3-14) % Eos % (Auto) (2-4) % Baso % (Auto) (0-2) % Neut # (Auto) (1271-7249) /uL Lymph # (Auto) (0182-1346) /uL [place] # (Auto) (0-900) /uL Eos # (Auto) (0-450) /uL Baso # (Auto) (0-100) /uL D-Dimer (<230) ng/mL Sodium (137-145) mmol/L Potassium (3.4-5.1) mmol/L Chloride (98-107) mmol/L Carbon Dioxide (22-32) mmol/L BUN (7-17) mg/dL Creatinine (0.52-1.04) mg/dL Estimated GFR (>60) mL/min BUN/Creatinine Ratio (6-22) Glucose (80-110) mg/dL Calcium (8.4-10.2) mg/dL Total Bilirubin (0.2-1.3) mg/dL AST (14-36) IU/L ALT (9-52) IU/L Alkaline Phosphatase (38-126) U/L Total Creatine Kinase (30-135) U/L CK-MB (CK-2) CK-MB (CK-2) Rel Index Troponin I (0.01-0.034) ng/mL B-Natriuretic Peptide 1680 H (<100) Total Protein (6.3-8.2) g/dL Albumin (3.5-5.0) g/dL Globulin (1.7-4.1) g/dL Albumin/Globulin Ratio (1.0-2.8) Lipase (23-300) U/L Urine Dip Bedside Urine Glucose Negative Bedside Urine Bilirubin - Negative Bedside Urine Ketone - Negative Urine Specific [place] 1.015 Bedside Urine Occult Blood - Negative Bedside Urine pH 6.5 Bedside Urine Protein - Negative Bedside Urine Urobilinogen - Negative Bedside Urine Nitrite - Negative Bedside Urine Leukocytes - Negative Esterase Imaging Data CT scan - chest: Radiologist's impression: [address] [address] [address] Scan Report Signed Patient: Sudha LarsenR#: [id number] : 6Acct:[id number] Age/Sex: 72 / FDate of Service: 05/26/18 Loc: ED Accession Number: [id number] Procedure: CT angio chest PE protocol Ordering Provider: Yousif Fuller D.O. PROCEDURE: CT ANGIO CHEST PE PROTOCOL INDICATIONS: chest pain, shortness of breath, hypoxia, critical dimer TECHNIQUE: After the administration of intravenous contrast, 2 mm thick sections acquired from the pulmonary apices to the posterior costophrenic angles. 3-dimensional maximum intensity projection (MIP) coronal and sagittal reformats were then acquired through the thorax. For radiation dose reduction, the following was used: automated exposure contro l, adjustment of mA and/or kV according to patient size. COMPARISON: [facility], CT, ANGIOGRAPHY CHEST AND ABDOMEN, 12/06/2012, 15:39. FINDINGS: Image quality: Excellent. Pulmonary arteries: Pulmonary arteries are normal in size, and demonstrate no intraluminal filling defects to suggest central pulmonary embolism. Lungs and pleura: There are small bilateral pleural effusion. Hazy groundglass opacities are seen scattered in bilateral lung polanco suggestive of pulmonary edema versus pneumonitis. 9 x 3 mm nodular density adjacent to lateral pleura of right lower lobe is seen. Small infiltrate/atelectasis are seen scattered in bilateral lower lung polanco. No pneumothorax. Central and peripheral airways are patent. Mediastinum: Heart size is markedly enlarged particularly involving left atrium and left ventricle, without pericardial effusion. Prominent mediastinal lymph nodes are seen measures up to 12 cm in short axis diameter in the precarinal space and up to 15 mm in short axis diameter in the subcarinal space.. Thoracic aorta is normal in caliber and enhancement. Esophagus is normal in caliber, without hiatal hernia. Bones and chest wall: Left chest wall pacemaker leads are seen in the region of right atrium, right ventricle and left ventricle. Breast implant is again seen. There is interval removal of previously noted left-sided breast implant. No suspicious bony lesions. Ribs and thoracic spine appear intact throughout. Thyroid gland is within normal limits. No axillary or supraclavicular adenopathy. Abdomen: Visualized upper abdominal solid organs appear normal in the early arterial phase of enhancement. IMPRESSION: 1. No evidence of pulmonary emboli. No thoracic aortic aneurysm. 2. Marked cardiomegaly, no pericardial effusion. Enlarged mediastinal lymph nodes, which may represent reactive inflammatory lymph nodes. 3. Small bilateral pleural effusions. Hazy groundglass opacity scattered throughout bilateral lung polanco suggestive of pulmonary edema/pneumonitis. No pneumothorax. 4. Patchy infiltrate/atelectasis scattered in bilateral lung bases. #3 mm subpleural nodule involving lateral aspect of right lower lobe, which could represent nodule infiltrate. Followup CT study is recommended. 5. Prior removal of left breast implant. Right breast implant appears grossly intact. Left chest wall pacemaker in situ. Dictated by: Maikel Alfred M.D. on 05/26/2018 at 11:07 Approved by: Maikel Alfred M.D. on 05/26/2018 at 11:28 Discharge Plan Departure Patient Disposition: Home Clinical Impression: Acute CHF Qualifiers: Heart failure type: unspecified Qualified Code(s): I50.9 - Heart failure, unspecified Discharge Date/Time: 05/26/18 15:26 Interventions: ED Discharge Assessment Last Done: 05/26/18 15:25 Instructions: DI for Heart Failure Activity Restrictions/Additional Instructions: *You have been diagnosed with [ acute CHF ] *What to do: * you currently take furosemide 40 mg by mouth twice daily. Please take an extra 1 at lunchtime each of the next 3 days. *Follow up with your primary care provider in 2-3 days, call for an appointment. Let them know you were seen in the Emergency Department and that we ask that you be seen in follow up *Return to ER if you should have any new, worsening or concerning symptoms Prescriptions: No Action carvedilol 12.5 mg Tablet 12.5 mg PO BID Qty: 0 RF: 0 furosemide 40 mg Tablet 40 mg PO BID PRN (Reason: extra fluid) RF: 0 sennosides [senna] 8.6 mg Tablet 8.6 mg PO BEDTIME RF: 0 cetirizine 10 mg Tablet 10 mg PO CONT RF: 0 omeprazole 40 mg Capsule,Delayed Release(Dr/Ec) 40 mg PO DAILY RF: 0 aspirin 81 mg Tablet,Delayed Release (Dr/Ec) 81 mg PO DAILY RF: 0 spironolactone 25 mg Tablet 37.5 mg PO DAILY RF: 0 glimepiride 2 mg Tablet 2 mg PO DAILY RF: 0 simvastatin 20 mg Tablet 20 mg PO BEDTIME RF: 0 glucose 4 gram Tablet,Chewable 16 g PO Q15M PRN (Reason: blood sugar) RF: 0 nitroglycerin [Nitrostat] 0.4 mg Tablet, Sublingual 0.4 mg Sublingual PRN PRN (Reason: Chest Pain) RF: 0 capsaicin 0.025 % Cream 1 applic TOPICAL QID RF: 0 ondansetron 4 mg Tablet,Disintegrating 8 mg PO Q8H PRN (Reason: Nausea) RF: 0 fluticasone 50 mcg/actuation [place],Suspension 2 spray INTRANASAL DAILY RF: 0 cholecalciferol (vitamin D3) [Vitamin D3] 1,000 unit Capsule 2,000 unit PO DAILY RF: 0 peg 400-propylene glycol 0.4-0.3 % Drops 1 drp EYE-BOTH QID RF: 0 sacubitril-valsartan 24-26 mg Tablet 1 tab PO BID RF: 0 Menthol/M Salicylate 15 % cream 1 applic Topical TID PRN (Reason: pain) RF: 0 Referrals: Roman Arenas MD [Primary Care Provider] -
== END 2018-05-26 15:26 | disposition home or self-care (01) ==
PROVIDERS: Emergency Provider Emergency Medicine; PCP Internal Medicine
DX: I50.9 Heart failure, unspecified (principal)
CPT/HCPCS: 36591; 71046; 71275; 80053; 81003; 82550; 83690; 83880; 84484; 85025; 85379; 93005; 96374; 99283; 99285; J1940; Q9967

== ENCOUNTER → 2018-06-08 12:22 | Outpatient (CLI) | payer MEDICARE, OTHER, SELFPAY ==
--- NOTE | 2018-06-08 12:27 | DI.RAD.S_ITS ---
PROCEDURE: XR ANKLE LT MIN 3V INDICATIONS: left ankle pain TECHNIQUE: 3 views of the ankle were acquired. COMPARISON: None. FINDINGS: Bones: No fractures or dislocations. Ankle mortise is normally aligned. No suspicious bony lesions. Soft tissues: No tibiotalar joint effusion. Achilles tendon appears normal. IMPRESSION: No acute osseous abnormality of the left ankle. Dictated by: Burt Dominguez M.D. on 06/08/2018 at 12:02 Approved by: Burt Dominguez M.D. on 06/08/2018 at 12:05
== END ==
PROVIDERS: PCP Internal Medicine; Visit Provider Physician Assistant
DX: M25.572 Pain in left ankle and joints of left foot (principal)
CPT/HCPCS: 73610

== ENCOUNTER → 2018-07-05 11:58 | Outpatient (CLI) | payer MEDICARE, OTHER, SELFPAY ==
[2018-07-05 14:28] LABS: Blood Urea Nitrogen 33 mg/dL (7-17); Calcium 9.6 mg/dL (8.4-10.2); Carbon Dioxide 26 mmol/L (22-32); Chloride 103 mmol/L (98-107); Estimated Glomerular Filt Rate 48.8 mL/min (>60); Glucose 155 mg/dL (80-110); HEMOLYSIS < 15 (0-50); Potassium 5.3 mmol/L (3.4-5.1); Sodium 139 mmol/L (137-145)
== END ==
PROVIDERS: PCP Internal Medicine; Visit Provider Internal Medicine
DX: I50.22 Chronic systolic (congestive) heart failure (principal)
CPT/HCPCS: 36415; 80048

== ENCOUNTER → 2018-07-11 13:53 | Outpatient (CLI) | payer MEDICARE, OTHER, SELFPAY ==
[2018-07-11 15:43] LABS: BUN Creatinine Ratio 33.6 (6-22); Blood Urea Nitrogen 37 mg/dL (7-17); Calcium 8.9 mg/dL (8.4-10.2); Carbon Dioxide 27 mmol/L (22-32); Chloride 99 mmol/L (98-107); Estimated Glomerular Filt Rate 48.8 mL/min (>60); Glucose 186 mg/dL (80-110); Potassium 4.1 mmol/L (3.4-5.1); Sodium 136 mmol/L (137-145)
[2018-07-11 15:46] LABS: HEMOLYSIS 152 (0-50)
== END ==
PROVIDERS: PCP Internal Medicine; Visit Provider Internal Medicine
DX: I50.22 Chronic systolic (congestive) heart failure (principal)
CPT/HCPCS: 36415; 80048

== ENCOUNTER → 2018-07-28 13:09 | Outpatient (CLI) | payer MEDICARE, OTHER, SELFPAY | PROVIDERS: PCP Internal Medicine; Visit Provider Internal Medicine | DX: K29.80 Duodenitis without bleeding (principal); K25.9 Gastric ulcer, unspecified as acute or chronic, without hemorrhage or perforation | CPT/HCPCS: 36415; 83013; 83516 ==

== ENCOUNTER → 2018-08-31 14:14 | Outpatient (CLI) | payer MEDICARE, OTHER, SELFPAY | PROVIDERS: PCP Internal Medicine; Visit Provider Internal Medicine | DX: K29.80 Duodenitis without bleeding (principal); K25.9 Gastric ulcer, unspecified as acute or chronic, without hemorrhage or perforation ==

== ENCOUNTER → 2018-09-01 13:14 | Outpatient (CLI) | payer MEDICARE, OTHER, SELFPAY | PROVIDERS: PCP Internal Medicine | DX: K29.80 Duodenitis without bleeding (principal); K25.9 Gastric ulcer, unspecified as acute or chronic, without hemorrhage or perforation | CPT/HCPCS: 36415; 83516 ==

== ENCOUNTER 2018-12-05 17:27 | Inpatient (IN) | payer MEDICARE, OTHER, SELFPAY ==
[2018-12-05] VITALS (11 sets, daily range): BP systolic 104–127; BP diastolic 63–90; PULSE 65–93; RESP 18–38; TEMP 36.7–36.8; O2SAT 50–99; BMI 27.3
--- NOTE | 2018-12-05 17:33 | DI.RAD.S_ITS ---
PROCEDURE: XR CHEST 1V INDICATIONS: chest pain TECHNIQUE: One view of the chest was acquired. COMPARISON: [facility], CR, XR CHEST 2V, 05/26/2018, 10:02. FINDINGS: Surgical changes and devices: Pacemaker Lungs and pleura: Interval development of diffuse interstitial pulmonary edema and mild alveolar pulmonary edema. No pleural fluid identified. Mediastinum: Mediastinal contours appear normal. Cardiomegaly. Bones and chest wall: No suspicious bony lesions. Overlying soft tissues appear unremarkable. IMPRESSION: Congestive heart failure exacerbation. Dictated by: Nile Chen M.D. on 12/05/2018 at 17:52 Approved by: Nile Chen M.D. on 12/05/2018 at 17:53
[2018-12-05 17:41] LABS: Add Manual Diff / Slide Review NO; Basophils Absolute Auto 100 /uL (0-100); Basophils Percent Auto 0.7 % (0-2); Eosinophils Absolute Auto 200 /uL (0-450); Eosinophils Percent Auto 1.4 % (2-4); Hematocrit 38.7 % (36-46); Lymphocytes Absolute Auto 2700 /uL (1100-4500); Lymphocytes Percent Auto 20.7 % (25-40); Mean Corpuscular HGB Conc 33.5 % (30-36); Mean Corpuscular Hemoglobin 31.3 PG (26-34); Mean Corpuscular Volume 93.4 fL (80-100); Monocytes Absolute Auto 800 /uL (0-900); Monocytes Percent Auto 5.8 % (3-14); Neutrophils Absolute Auto 9500 /uL (1500-7000); Neutrophils Percent Auto 71.4 % (50-75); Platelet Count 210 X10^3/uL (150-400); Red Blood Cell Count 4.15 X10^6/uL (4.0-5.2); Red Cell Distribution Width 13.6 % (11.6-14.8); White Blood Cell Count 13.3 X10^3/uL (4.5-11.0)
[2018-12-05 17:47] LABS: Prothrombin Time 11.3 SECONDS (10.1-12.7)
[2018-12-05] MEDS: ONDANSETRON 4 MG/2 ML INJ IV (17:47)
[2018-12-05 17:49] LABS: PTT Partial Thromboplastin Tim 33 SECONDS (26.4-36.2)
[2018-12-05] MEDS: FUROSEMIDE 100 MG/10 ML VIAL 80 MG IV (17:49)
[2018-12-05 17:56] LABS: Alanine Aminotransferase 19 IU/L (9-52); Albumin Globulin Ratio 1.3 (1.0-2.8); Alkaline Phosphatase 85 U/L (38-126); Aspartate Aminotransferase 27 IU/L (14-36); Bilirubin Total 0.7 mg/dL (0.2-1.3); Blood Urea Nitrogen 21 mg/dL (7-17); Calcium 9.5 mg/dL (8.4-10.2); Carbon Dioxide 22 mmol/L (22-32); Chloride 112 mmol/L (98-107); Creatine Kinase 46 U/L (30-135); Estimated Glomerular Filt Rate 54.3 mL/min (>60); Globulin 3.2 g/dL (1.7-4.1); Glucose 194 mg/dL (80-110); HEMOLYSIS 23 (0-50); Lipase 49 U/L (23-300); Magnesium 2.2 mg/dL (1.6-2.3); Potassium 3.9 mmol/L (3.4-5.1); Sodium 142 mmol/L (137-145); Total Protein 7.2 g/dL (6.3-8.2)
[2018-12-05 18:07] LABS: Troponin I < 0.012 ng/mL (0.01-0.034)
--- NOTE | 2018-12-05 18:08 | ED.CHESTPAIN ---
HPI - Chest Pain General Chief Complaint: Chest Pain Stated Complaint: Possible heart attack Time Seen by Provider: 12/05/18 17:34 Source: patient Mode of arrival: ambulatory Limitations: other (Respiratory distress) History of Present Illness HPI narrative: Patient comes emergency department complaining of severe shortness of breath, accompanied by chest pain, that started this afternoon. Patient states she has been having increased shortness of breath today, but that she began to suddenly have a harder time breathing a few hours ago. Patient took 80 mg of her Lasix, as well as her aspirin and carvedilol, but could not seem to get the symptoms under control. Patient is known to have CHF, and has been admitted to the hospital for CHF exacerbations previously. Patient states she has had somewhat increased swelling in her bilateral lower extremities. She denies fevers or cough. No nausea or vomiting. No radiation of pain, which is located in her substernal area. No other complaints at this time. Related Data Home Medications Medication Instructions Recorded Confirmed carvedilol 12.5 mg PO BID #0 12/22/09 12/05/18 aspirin 81 mg PO DAILY 05/26/18 12/05/18 fluticasone propionate 2 spray INTRANASAL DAILY 05/26/18 12/05/18 furosemide 40 mg PO BID PRN 05/26/18 12/05/18 glucose 16 g PO Q15M PRN 05/26/18 12/05/18 nitroglycerin [Nitrostat] 0.4 mg SUBLINGUAL PRN PRN 05/26/18 12/05/18 omeprazole 40 mg PO DAILY 05/26/18 12/05/18 ondansetron 8 mg PO Q8H PRN 05/26/18 12/05/18 peg 400-propylene glycol 1 drp EYE-BOTH QID 05/26/18 12/05/18 sacubitril-valsartan 1 tab PO BID 05/26/18 12/05/18 simvastatin 20 mg PO BEDTIME 05/26/18 12/05/18 spironolactone 37.5 mg PO DAILY 05/26/18 12/05/18 amiodarone 1 dose PO DAILY 12/05/18 12/05/18 cholecalciferol (vitamin D3) 1,000 unit PO DAILY 12/05/18 12/05/18 [Vitamin D3] mexiletine 150 mg PO TID 12/05/18 12/05/18 Allergies Allergy/AdvReac Type Severity Reaction Status Date / Time codeine [CODEINE] Allergy Severe rash, Verified 06/08/18 12:06 vomiting prochlorperazine Allergy Severe rash, Verified 06/08/18 12:06 [From COMPAZINE] vomiting Review of Systems Review of Systems ROS Unobtainable: All systems reviewed & are unremarkable except as noted in HPI and below Constitutional Denies chills, Denies fever(s), Denies lethargy and Denies weakness Eyes Denies change in vision, Denies eye discharge, Denies irritation and Denies loss of vision ENT Ears, Nose, Mouth, and Throat: Denies change in voice, Denies neck pain and Denies sore throat Cardiovascular Reports chest pain, Reports pedal edema, Denies irregular heart rhythm, Denies lightheadedness, Denies palpitations, Reports dyspnea and Denies orthopnea Respiratory Denies cough, Reports dyspnea and Denies wheezing Gastrointestinal Gastrointestinal: Denies abdominal pain, Denies change in bowel habits, Denies diarrhea, Denies nausea and Denies vomiting Genitourinary Denies hematuria, Denies flank pain, Denies urinary incontinence and Denies urinary urgency Musculoskeletal Denies neck pain Integumentary/Breasts Denies pruritus, Denies erythema, Denies rash and Denies wounds Neurologic Denies confusion, Denies loss of vision and Denies weakness Psychiatric Denies anxiety, Denies confusion, Denies depression, Denies homicidal ideation and Denies suicidal ideation Endocrine Denies palpitations Hematologic/Lymphatic Denies easy bruising Allergic/Immunologic Denies wheezing [facility] Medical History Cardiac defibrillator in place (Acute) Cardiomyopathy (Acute) Chronic HFrEF (heart failure with reduced ejection fraction) (Acute) Diabetes (Acute) Social History household members: none Smoking Status: Never smoker alcohol intake: current Social History household members: none Smoking Status: Never smoker alcohol intake: current Exam Initial Vital Signs Initial Vital Signs: Vital Signs Temperature 98.1 F 12/05/18 17:32 Pulse Rate 93 H 08/26/19 17:32 Respiratory Rate 38 H 12/05/18 17:32 Blood Pressure 124/77 12/05/18 17:32 Pulse Oximetry 84 L 12/05/18 17:32 Const General: cooperative and well developed Nutritional Appearance: well nourished Orientation: alert, awake, oriented x3 and not confused [facility] Head: normocephalic and atraumatic Ears: external ears normal Nose: external nose normal and No nasal discharge Face and sinus: face symmetric and No dry mucous membranes Mouth: oral mucosae normal and moist mucous membranes Teeth and gingiva: dentition normal Eyes General: appearance normal, both eyes and all related structures Eyelids: eyelids normal Conjunctivae: conjunctivae normal Sclera: sclerae normal Pupils: PERRL EOM: EOM intact bilaterally Neck Neck: normal visual inspection, trachea midline, No lymphadenopathy, No midline deformity and No JVD Lymphatic: No lymphedema Chest Chest: normal inspection of the chest Resp Effort & Inspection: labored, respiratory distress (Severe) and uses accessory muscles Auscultation: rales bilaterally 2/[address] up and no wheezes Cardio Rate: regular rate Rhythm: regular rhythm Heart Sounds: no click, no gallops, no murmurs and no rubs Pulses: normal peripheral pulses GI Inspection: non-distended Palpation: soft, no hepatosplenomegaly, No guarding, No pulsatile mass and No tender Auscultation: normal bowel sounds Back/Spine/Pelvis Back: No CVA tenderness Cervical Spine: cervical ROM normal and No pain with cervical ROM Thoracic/Lumbar Spine: thoracic and lumbar spine normal to inspection Skin General: no rashes or lesions noted, No jaundice and No petechiae Neuro General: alert, awake and no focal motor deficits Speech: speech normal Extrem General: full ROM and edema (2+, bilateral lower extremities) Psych Appearance: well kempt Mental Status: mental status grossly normal Attitude: cooperative Thought Content: normal and suicidality Judgment: judgment good Course Course Narrative: Patient was evaluated immediately by myself upon arrival in the emergency department. Patient was placed on the cut off saw operator, which showed normal sinus rhythm with a rate in the 90s. Patient's oxygen saturation was low to mid 80s on room air. This patient was in severe respiratory distress, with hypoxia, and I felt she needed emergent airway intervention. Patient initially had difficulty tolerating BiPAP, but was able to adjust to having the BiPAP on, and this did ultimately result in dramatic improvement in her condition. Patient's chest x-ray demonstrated an acute CHF exacerbation with pulmonary edema. The patient was given 80 mg of Lasix IV, as well as an inch of nitroglycerin paste. Laboratory studies did demonstrate a BNP of 2420. Troponin was negative. Patient had a mild leukocytosis of 13.3. Labs were otherwise unremarkable. Patient was found to be doing much better on re-evaluation, and saturating 96% on BiPAP. I spoke with Dr. Manzano, who was on-call for hospitalist service, and he did agree to admit the patient to his service in the ICU. Orders Ordered: ED Orders 12/05/18 17:30 BNP [B Type Natriuretic Peptide] Stat Complete Blood Count AUTO DIFF Stat Comprehensive Metabolic Panel Stat Lipase Stat Magnesium Stat Partial Thromboplastin Time Stat Prothrombin Time INR Stat Troponin & CK Cardiac Panel Stat 12/05/18 17:33 XR chest 1V Stat EKG-12 Lead Stat 12/05/18 17:34 BiPAP Ventilatory Support RT PROTOCOL 12/05/18 18:41 Education, smoking cessation ONGOING 12/05/18 18:46 Consult to Respiratory Therapy Evaluate & Treat 12/05/18 19:21 EC echo doppler complete Urgent 12/05/18 23:00 Troponin I Routine 12/06/18 05:00 Basic Metabolic Panel DAILY Complete Blood Count AUTO DIFF DAILY Hemoglobin A1C% w Est Avg Glu Routine Magnesium DAILY TSH w/ Reflex to FT4 Routine 12/07/18 05:00 Basic Metabolic Panel DAILY Complete Blood Count AUTO DIFF DAILY Magnesium DAILY 12/08/18 05:00 Basic Metabolic Panel DAILY Complete Blood Count AUTO DIFF DAILY Magnesium DAILY Acetaminophen (Tylenol) 650 mg PO Q6HR PRN PRN Reason: As Needed for Fever/Mild Pain Aspirin (Aspirin Ec) 81 mg PO DAILY [facility]AR[facility]IT Carvedilol (Coreg) 12.5 mg PO BID [facility] Dextrose (D50w) 25 gm IV PRN PRN PRN Reason: Hypoglycemia Enoxaparin Sodium (Lovenox) 40 mg SUBCUT DAILY AMARJIT Furosemide (Lasix) 40 mg IV Q12HR [facility] Insulin Aspart (Novolog Flexpen) 0 unit SUBCUT ACHS AMARJIT; Protocol Ondansetron HCl (Zofran) 4 mg IV Q8HR PRN PRN Reason: Nausea And Vomiting Pantoprazole Sodium (Protonix) 40 mg PO 0600 AM[facility]JIT Sennosides (Senna) 8.6 mg PO BEDTIME AMARJIT Simvastatin (Zocor) 20 mg PO BEDTIME [facility]JIT Spironolactone (Aldactone) 37.5 mg PO DAILY AMARJIT Vitamin D (Vitamin D3) 1,000 unit PO DAILY AMARJIT Discontinued Medications Furosemide (Lasix) 80 mg IV NOW ONE Stop: 12/05/18 17:42 Last Admin: 12/05/18 17:49 Dose: 80 mg Nitroglycerin (Nitro-Bid) 1 inch TOP NOW ONE Stop: 12/05/18 17:59 Last Admin: 12/05/18 18:16 Dose: 1 inch Ondansetron HCl (Zofran) 4 mg IV NOW ONE Stop: 12/05/18 17:43 Last Admin: 12/05/18 17:47 Dose: 4 mg Vital Signs - 8 hr 12/05/18 17:32 12/05/18 17:38 12/05/18 17:45 Temperature 98.1 F Pulse Rate 93 H 91 H Respiratory Rate 38 H 33 H Blood Pressure 127/68 Blood Pressure [Left Arm] 124/77 104/90 Pulse Oximetry 84 L 87 L 12/05/18 18:01 12/05/18 18:16 Temperature Pulse Rate 78 72 Respiratory Rate 18 20 Blood Pressure Blood Pressure [Left Arm] 127/68 116/64 Pulse Oximetry 99 99 MDM - Chest Pain Medical Records Data Attestation: I reviewed the patient's medical records. Lab Data Attestation: I reviewed the patient's lab results. Result diagrams: 12/05/18 17:30 12/05/18 17:30 Lab Results 12/05/18 12/05/18 12/05/18 Range/Units 17:30 17:30 17:30 WBC 13.3 H (4.5-11.0) X10^3/uL RBC 4.15 (4.0-5.2) X10^6/uL Hgb 13.0 (12.0-16.0) g/dL Hct 38.7 (36-46) % MCV 93.4 (80-100) fL MCH 31.3 (26-34) PG MCHC 33.5 (30-36) % RDW 13.6 (11.6-14.8) % Plt Count 210 (150-400) X10^3/uL Neut % (Auto) 71.4 (50-75) % Lymph % (Auto) 20.7 L (25-40) % Webb % (Auto) 5.8 (3-14) % Eos % (Auto) 1.4 L (2-4) % Baso % (Auto) 0.7 (0-2) % Neut # (Auto) 9500 H (2069-2115) /uL Lymph # (Auto) 2700 (1729-3642) /uL Webb # (Auto) 800 (0-900) /uL Eos # (Auto) 200 (0-450) /uL Baso # (Auto) 100 (0-100) /uL PT 11.3 (10.1-12.7) SECONDS INR 1.0 (0.9-1.3) APTT 33 (26.4-36.2) SECONDS Sodium 142 (137-145) mmol/L Potassium 3.9 (3.4-5.1) mmol/L Chloride 112 H (98-107) mmol/L Carbon Dioxide 22 (22-32) mmol/L BUN 21 H (7-17) mg/dL Creatinine 1.00 (0.52-1.04) mg/dL Estimated GFR 54.3 L (>60) mL/min BUN/Creatinine Ratio 21.0 (6-22) Glucose 194 H (80-110) mg/dL Calcium 9.5 (8.4-10.2) mg/dL Magnesium 2.2 (1.6-2.3) mg/dL Total Bilirubin 0.7 (0.2-1.3) mg/dL AST 27 (14-36) IU/L ALT 19 (9-52) IU/L Alkaline Phosphatase 85 (38-126) U/L Total Creatine Kinase 46 (30-135) U/L CK-MB (CK-2) TNP CK-MB (CK-2) Rel Index TNP Troponin I < 0.012 (0.01-0.034) ng/mL B-Natriuretic Peptide 2420 H (<100) Total Protein 7.2 (6.3-8.2) g/dL Albumin 4.0 (3.5-5.0) g/dL Globulin 3.2 (1.7-4.1) g/dL Albumin/Globulin Ratio 1.3 (1.0-2.8) Lipase 49 (23-300) U/L Imaging Data Chest x-ray: Radiologist's impression: [place] [id number] [place] [id number] XRay Report Signed Patient: Pillo Larsen#: [id number] : 1946Acct:[id number] Age/Sex: 73 / FDate of Service: 12/05/18 Loc: ED Accession Number: [id number] Procedure: XR chest 1V Ordering Provider: Yanira Adorno MD PROCEDURE: XR CHEST 1V INDICATIONS: chest pain TECHNIQUE: One view of the chest was acquired. COMPARISON: [facility], CR, XR CHEST 2V, 05/26/2018, 10:02. FINDINGS: Surgical changes and devices: Pacemaker Lungs and pleura: Interval development of diffuse interstitial pulmonary edema and mild alveolar pulmonary edema. No pleural fluid identified. Mediastinum: Mediastinal contours appear normal. Cardiomegaly. Bones and chest wall: No suspicious bony lesions. Overlying soft tissues appear unremarkable. IMPRESSION: Congestive heart failure exacerbation. Dictated by: Nile Chen M.D. on 12/05/2018 at 17:52 Approved by: Nile Chen M.D. on 12/05/2018 at 17:53 ECG Data Attestation: I personally reviewed and interpreted this ECG as follows: (See below) Prior ECG tracings: not available for review Interpretation: A 12 lead EKG performed December 05, 2017 at 1733, as follows: Regular ventricular rhythm with a rate of 91 beats per minute [place] interval 217 milliseconds QRS duration 180 millisecond QTC interval 474 millisecond Marked left axis deviation Occasional PVCs No significant ST T wave changes Interpretation: Sinus rhythm with 1st degree AV block with occasional PVCs; marked left axis deviation; intraventricular conduction delay; no signs of acute ischemia; abnormal EKG as interpreted by ED MD. Critical Care Time Critical Care Time: Yes Total Critical Care Time: 40 Attestation: Critical care time was necessary, due to high probability of imminent decline and , due to acute CHF exacerbation and respiratory failure. Critical care time is exclusive of separately billable procedures. Critical care time included: Interviewing and examining the patient, ordering and reviewing laboratory studies, ordering and reviewing imaging studies, evaluating cardiac output, evaluating oxygen saturation, discussion with consultants, discussion with family, re-examining the patient and evaluating effects of interventions, and documentation. Discharge Plan Departure Patient Disposition: Admitted As Inpatient Clinical Impression: Acute exacerbation of CHF (congestive heart failure) Qualifiers: Heart failure type: unspecified Qualified Code(s): I50.9 - Heart failure, unspecified Respiratory failure Qualifiers: Chronicity: acute Respiratory failure complication: hypoxia Qualified Code(s): J96.01 - Acute respiratory failure with hypoxia Discharge Date/Time: 12/05/18 18:45 Interventions: ED Discharge Assessment Last Done: 12/05/18 18:45 Admit Date/Time: 12/05/18 18:13 Admit Provider: Bonilla Manzano
[2018-12-05 18:13] LABS: B Type Natriuretic Peptide 2420 (<100)
[2018-12-05] MEDS: NITROGLYCERIN OINT 1 INCH/GM OINT...G. TOP (18:16)
--- NOTE | 2018-12-05 18:38 | PM.HP.1 ---
History of Present Illness Date Patient Seen: 12/05/18 Time Patient Seen: 18:38 Chief complaint: Possible heart attack Narrative: Ronit Virgen is a 73-year-old female with past medical history of CHFrEF secondary to currently unknown cardiomyopathy with defibrillator placement and diabetes who presented with acute onset of shortness of breath starting earlier this afternoon. She states that earlier this afternoon she had difficulty breathing, with diffuse chest discomfort and some nausea. She took 80 mg of p.o. Lasix at home, but did not improve her symptoms so she decided to come to the emergency room. Her chest pain started shortly after her shortness of breath. There is no radiation and is not associated with diaphoresis, arm pain, jaw pain, headache, or abdominal pain. It is located all over her chest and described as a moderate tightness. It worsens slightly with inspiration. She states that yesterday she noticed some increased leg swelling, but denies any orthopnea, dyspnea on exertion. She denies any changes in her diet, and her last heart failure admission was around 9 months ago. She follows with a control chemist at [facility]. She denies any changes in her medications. She has been seeing an ENT for some nasal congestion but denies any fevers, chills, worsening cough, or sputum production. In the emergency room she received 80 mg of IV Lasix, BNP was elevated to over 2000, and initial troponin was negative. Chest x-ray showed diffuse bilateral pulmonary edema. EKG showed sinus rhythm with ventricular conduction delay, grossly unchanged since her prior examination. Patient History Medical History (Updated 12/05/18 @ 19:10 by Yanira Adorno MD) Cardiac defibrillator in place (Acute) Cardiomyopathy (Acute) Chronic HFrEF (heart failure with reduced ejection fraction) (Acute) Diabetes (Acute) Social History household members: friend(s) and none Smoking Status: Never smoker Family & Social History Social History: household members friend(s),none Safety & Behavioral: Feels Safe in Current Yes Environment Been Physically Hurt or No Threatened By a Person Tobacco & Substance use: Smoking Status Never smoker alcohol intake frequency 0-2 drinks per day Substance Use Type does not use Meds Home Medications Medication Instructions Recorded Confirmed Type carvedilol 12.5 mg PO BID #0 12/22/09 12/05/18 History Menthol/M Salicylate 1 applic TOPICAL TID PRN 05/26/18 12/05/18 History aspirin 81 mg PO DAILY 05/26/18 12/05/18 History capsaicin 1 applic TOPICAL QID 05/26/18 12/05/18 History cetirizine 10 mg PO DAILY 05/26/18 12/05/18 History fluticasone propionate 2 spray INTRANASAL DAILY 05/26/18 12/05/18 History furosemide 40 mg PO BID PRN 05/26/18 12/05/18 History glimepiride 1 dose PO DAILY 05/26/18 12/05/18 History glucose 16 g PO Q15M PRN 05/26/18 12/05/18 History nitroglycerin [Nitrostat] 0.4 mg SUBLINGUAL PRN PRN 05/26/18 12/05/18 History omeprazole 40 mg PO DAILY 05/26/18 12/05/18 History ondansetron 8 mg PO Q8H PRN 05/26/18 12/05/18 History peg 400-propylene glycol 1 drp EYE-BOTH QID 05/26/18 12/05/18 History sacubitril-valsartan 1 tab PO BID 05/26/18 12/05/18 History sennosides [senna] 8.6 mg PO BEDTIME 05/26/18 12/05/18 History simvastatin 20 mg PO BEDTIME 05/26/18 12/05/18 History spironolactone 37.5 mg PO DAILY 05/26/18 12/05/18 History amiodarone 1 dose PO DAILY 12/05/18 12/05/18 History cholecalciferol (vitamin D3) 1,000 unit PO DAILY 12/05/18 12/05/18 History [Vitamin D3] mexiletine 150 mg PO TID 12/05/18 12/05/18 History Allergies Allergy/AdvReac Type Severity Reaction Status Date / Time codeine [CODEINE] Allergy Severe rash, Verified 06/08/18 12:06 vomiting prochlorperazine Allergy Severe rash, Verified 06/08/18 12:06 [From COMPAZINE] vomiting Review of Systems Review of Systems All other systems reviewed with the patient and are negative unless otherwise stated. Exam Vital Signs (past 8 hours): - 12/05/18 17:32 12/05/18 17:38 12/05/18 17:45 Temperature 98.1 F Pulse Rate 93 H 91 H Respiratory Rate 38 H 33 H Blood Pressure 127/68 Blood Pressure [Left Arm] 124/77 104/90 Pulse Oximetry 84 L 87 L 12/05/18 18:01 12/05/18 18:16 Temperature Pulse Rate 78 72 Respiratory Rate 18 20 Blood Pressure Blood Pressure [Left Arm] 127/68 116/64 Pulse Oximetry 99 99 Fraction of Inspired Oxygen 50 Oxygen Delivery Method BiPAP Oxygen Flow Rate 4 Narrative Exam Narrative: GENERAL APPEARANCE: Well developed, well nourished, on BiPAP breathing comfortably and speaking in full sentences. SKIN: Inspection of the skin reveals no rashes, ulcerations or petechiae. HEENT: The sclerae were anicteric and conjunctivae were pink and moist. Extraocular movements were intact and pupils were equal, round with normal accommodation. External inspection of the ears and nose showed no scars, lesions, or masses. Lips, teeth, and gums showed normal mucosa. The oral mucosa, hard and soft palate, tongue and posterior pharynx were unremarkable. NECK: Supple and symmetric. There was no thyroid enlargement, and no tenderness, or masses were felt. CHEST: Normal AP diameter and normal contour without any kyphoscoliosis. LUNGS: Auscultation of the lungs revealed no wheezes, rhonchi, or rales. There were diminished breath sounds in the bilateral lung bases. CARDIOVASCULAR: There was a regular rate and rhythm without any murmurs, gallops, rubs. Peripheral pulses were 2+ and symmetric. ABDOMEN: Soft and nontender with normal bowel sounds. No ascites was noted. MUSCULOSKELETAL: There was no tenderness or effusions noted. Muscle strength and tone were normal. EXTREMITIES: No cyanosis, clubbing or edema. NEUROLOGIC: Alert and oriented x 3. Normal affect. Gait was normal. Strength is +5/5 in the Upper Extremities and Lower Extremities Bilaterally. Sensation to touch was normal. Objective Labs Result Diagrams: 12/05/18 17:30 12/05/18 17:30 Labs: Laboratory Results - last 24 hr 12/05/18 12/05/18 12/05/18 17:30 17:30 17:30 WBC 13.3 H RBC 4.15 Hgb 13.0 Hct 38.7 MCV 93.4 MCH 31.3 MCHC 33.5 RDW 13.6 Plt Count 210 Neut % (Auto) 71.4 Lymph % (Auto) 20.7 L Lewis % (Auto) 5.8 Eos % (Auto) 1.4 L Baso % (Auto) 0.7 Neut # (Auto) 9500 H Lymph # (Auto) 2700 Lewis # (Auto) 800 Eos # (Auto) 200 Baso # (Auto) 100 PT 11.3 INR 1.0 APTT 33 Sodium 142 Potassium 3.9 Chloride 112 H Carbon Dioxide 22 BUN 21 H Creatinine 1.00 Estimated GFR 54.3 L BUN/Creatinine Ratio 21.0 Glucose 194 H Calcium 9.5 Magnesium 2.2 Total Bilirubin 0.7 AST 27 ALT 19 Alkaline Phosphatase 85 Total Creatine Kinase 46 CK-MB (CK-2) TNP CK-MB (CK-2) Rel Index TNP Troponin I < 0.012 B-Natriuretic Peptide 2420 H Total Protein 7.2 Albumin 4.0 Globulin 3.2 Albumin/Globulin Ratio 1.3 Lipase 49 Assessment & Plan Assessment & Plan narrative: Ronit Virgen is a 73-year-old female with past medical history of CHFrEF secondary to currently unknown cardiomyopathy with defibrillator placement and diabetes who presented with acute onset of shortness of breath starting earlier this afternoon, she is admitted to the ICU for acute hypoxemic respiratory failure secondary to decompensated heart failure. 1. Acute hypoxemic respiratory failure, present on admission -patient was hypoxic into the mid 80s, and tachypneic in the emergency room. She ultimately required BiPAP therapy with improvement in her respiratory symptoms. This is secondary to acute decompensated heart failure. -continue management as below for decompensated heart failure -respiratory therapy consult -attempt to wean from BiPAP as able - NPO until off BiPAP. 2. Acute decompensated systolic heart failure, present on admission -unknown ejection fraction at this time as no records are currently available. The patient reports history reduced ejection fraction, and I will try and confirm with records from [facility] where her control chemist is located. Unknown etiology for decompensation at this time. ACS is unlikely but will repeat 2nd troponin. She has been on amiodarone for approximately 1 year, and her dosing was recently reduced for an unknown complication, so I will check a TSH as well. - hold amiodarone until dosing confirmed and thyroid testing is unremarkable. - repeat 2nd troponin - obtain TTE -can continue Coreg 12.5 mg b.i.d. as this is her home dose -her blood pressure is borderline low, so overnight I will hold her Entresto. -continue 40 mg of Lasix IV b.i.d. -monitor intake and output -daily weights -telemetry - K>4, Mg >2 - continue spironolactone daily 3. Diabetes, type II, chronic -not currently on home medications, but glucose was elevated to 190 on admission. -continue to check fingersticks, and A1c -will initiate low-dose sliding scale insulin while inpatient. 4. History of defibrillator placement - unknown etiology at this time but would assume for wide QRS with reduced EF. - obtain records as noted above - tele - chest TSH, and hold amiodarone pending TSH level. DVT: Lovenox daily Code: full code FENGI: NPO until off BiPAP Dispo: Admit to ICU for acute respiratory failure requiring Non-invasive ventilation. Expected stay is longer than 2 midnights. Time Spent With Patient Time with patient: Greater than 35 minutes
--- NOTE | 2018-12-05 18:47 | RT ---
Pt was taken off Bipap in the ER at 1830 and put on 3L/M O2 NC Sats 96%. NRD was noted.
--- NOTE | 2018-12-05 19:40 | ED_ITS ---
HPI - Chest Pain General Chief Complaint: Chest Pain Stated Complaint: Possible heart attack Time Seen by Provider: 12/05/18 17:34 Source: patient Mode of arrival: ambulatory Limitations: other (Respiratory distress) History of Present Illness HPI narrative: Patient comes emergency department complaining of severe s hortness of breath, accompanied by chest pain, that started this afternoon. Patient states she has been having increased shortness of breath today, but that she began to suddenly have a harder time breathing a few hours ago. Patient took 80 mg of her Lasix, as well as her aspirin and carvedilol, but could not seem to get the symptoms under control. Patient is known to have CHF, and has been admitted to the hospital for CHF exacerbations previously. Patient states she has had somewhat increased swelling in her bilateral lower extremities. She denies fevers or cough. No nausea or vomiting. No radiation of pain, which is located in her substernal area. No other complaints at this time. Related Data Home Medications Medication Instructions Recorded Confirmed carvedilol 12.5 mg PO BID #0 12/22/09 12/05/18 aspirin 81 mg PO DAILY 05/26/18 12/05/18 fluticasone propionate 2 spray INTRANASAL DAILY 05/26/18 12/05/18 furosemide 40 mg PO BID PRN 05/26/18 12/05/18 glucose 16 g PO Q15M PRN 05/26/18 12/05/18 nitroglycerin [Nitrostat] 0.4 mg SUBLINGUAL PRN PRN 05/26/18 12/05/18 omeprazole 40 mg PO DAILY 05/26/18 12/05/18 ondansetron 8 mg PO Q8H PRN 05/26/18 12/05/18 peg 400-propylene glycol 1 drp EYE-BOTH QID 05/26/18 12/05/18 sacubitril-valsartan 1 tab PO BID 05/26/18 12/05/18 simvastatin 20 mg PO BEDTIME 05/26/18 12/05/18 spironolactone 37.5 mg PO DAILY 05/26/18 12/05/18 amiodarone 1 dose PO DAILY 12/05/18 12/05/18 cholecalciferol (vitamin D3) 1,000 unit PO DAILY 12/05/18 12/05/18 [Vitamin D3] mexiletine 150 mg PO TID 12/05/18 12/05/18 Allergies Allergy/AdvReac Type Severity Reaction Status Date / Time codeine [CODEINE] Allergy Severe rash, Verified 06/08/18 12:06 vomiting prochlorperazine Allergy Severe rash, Verified 06/08/18 12:06 [From COMPAZINE] vomiting Review of Systems Review of Systems ROS Unobtainable: All systems reviewed & are unremarkable except as noted in HPI and below Constitutional Denies chills, Denies fever(s), Denies lethargy and Denies weakness Eyes Denies change in vision, Denies eye discharge, Denies irritation and Denies loss of vision ENT Ears, Nose, Mouth, and Throat: Denies change in voice, Denies neck pain and Denies sore throat Cardiovascular Reports chest pain, Reports pedal edema, Denies irregular heart rhythm, Denies lightheadedness, Denies palpitations, Reports dyspnea and Denies orthopnea Respiratory Denies cough, Reports dyspnea and Denies wheezing Gastrointestinal Gastrointestinal: Denies abdominal pain, Denies change in bowel habits, Denies diarrhea, Denies nausea and Denies vomiting Genitourinary Denies hematuria, Denies flank pain, Denies urinary incontinence and Denies urinary urgency Musculoskeletal Denies neck pain Integumentary/Breasts Denies pruritus, Denies erythema, Denies rash and Denies wounds Neurologic Denies confusion, Denies loss of vision and Denies weakness Psychiatric Denies anxiety, Denies confusion, Denies depression, Denies homicidal ideation and Denies suicidal ideation Endocrine Denies palpitations Hematologic/Lymphatic Denies easy bruising Allergic/Immunologic Denies wheezing [facility] Medical History Cardiac defibrillator in place (Acute) Cardiomyopathy (Acute) Chronic HFrEF (heart failure with reduced ejection fraction) (Acute) Diabetes (Acute) Social History household members: none Smoking Status: Never smoker alcohol intake: current Social History household members: none Smoking Status: Never smoker alcohol intake: current Exam Initial Vital Signs Initial Vital Signs: Vital Signs Temperature 98.1 F 12/05/18 17:32 Pulse Rate 93 H 12/05/18 17:32 Respiratory Rate 38 H 12/05/18 17:32 Blood Pressure 124/77 12/05/18 17:32 Pulse Oximetry 84 L 12/05/18 17:32 Const General: cooperative and well developed Nutritional Appearance: well nourished Orientation: alert, awake, oriented x3 and not confused [facility] Head: normocephalic and atraumatic Ears: external ears normal Nose: external nose normal and No nasal discharge Face and sinus: face symmetric and No dry mucous membranes Mouth: oral mucosae normal and moist mucous membranes Teeth and gingiva: dentition normal Eyes General: appearance normal, both eyes and all related structures Eyelids: eyelids normal Conjunctivae: conjunctivae normal Sclera: sclerae normal Pupils: PERRL EOM: EOM intact bilaterally Neck Neck: normal visual inspection, trachea midline, No lymphadenopathy, No midline deformity and No JVD Lymphatic: No lymphedema Chest Chest: normal inspection of the chest Resp Effort & Inspection: labored, respiratory distress (Severe) and uses accessory muscles Auscultation: rales bilaterally 2/[address] up and no wheezes Cardio Rate: regular rate Rhythm: regular rhythm Heart Sounds: no click, no gallops, no murmurs and no rubs Pulses: normal peripheral pulses GI Inspection: non-distended Palpation: soft, no hepatosplenomegaly, No guarding, No pulsatile mass and No tender Auscultation: normal bowel sounds Back/Spine/Pelvis Back: No CVA tenderness Cervical Spine: cervical ROM normal and No pain with cervical ROM Thoracic/Lumbar Spine: thoracic and lumbar spine normal to inspection Skin General: no rashes or lesions noted, No jaundice and No petechiae Neuro General: alert, awake and no focal motor deficits Speech: speech normal Extrem General: full ROM and edema (2+, bilateral lower extremities) Psych Appearance: well kempt Mental Status: mental status grossly normal Attitude: cooperative Thought Content: normal and suicidality Judgment: judgment good Course Course Narrative: Patient was evaluated immediately by myself upon arrival in the emergency department. Patient was placed on the groundwater monitoring technician, which showed normal sinus rhythm with a rate in the 90s. Patient's oxygen saturation was low to mid 80s on room air. This patient was in severe respiratory distress, with hypoxia, and I felt she needed emergent airway intervention. Patient initially had difficulty tolerating BiPAP, but was able to adjust to having the BiPAP on, and this did ultimately result in dramatic improvement in h er condition. Patient's chest x-ray demonstrated an acute CHF exacerbation with pulmonary edema. The patient was given 80 mg of Lasix IV, as well as an inch of nitroglycerin paste. Laboratory studies did demonstrate a BNP of 2420. Troponin was negative. Patient had a mild leukocytosis of 13.3. Labs were otherwise unremarkable. Patient was found to be doing much better on re- evaluation, and saturating 96% on BiPAP. I spoke with Dr. Manzano, who was on- call for hospitalist service, and he did agree to admit the patient to his service in the ICU. Orders Ordered: ED Orders 12/05/18 17:30 BNP [B Type Natriuretic Peptide] Stat Complete Blood Count AUTO DIFF Stat Comprehensive Metabolic Panel Stat Lipase Stat Magnesium Stat Partial Thromboplastin Time Stat Prothrombin Time INR Stat Troponin & CK Cardiac Panel Stat 12/05/18 17:33 XR chest 1V Stat EKG-12 Lead Stat 12/05/18 17:34 BiPAP Ventilatory Support RT PROTOCOL 12/05/18 18:41 Education, smoking cessation ONGOING 12/05/18 18:46 Consult to Respiratory Therapy Evaluate & Treat 12/05/18 19:21 EC echo doppler complete Urgent 12/05/18 23:00 Troponin I Routine 12/06/18 05:00 Basic Metabolic Panel DAILY Complete Blood Count AUTO DIFF DAILY Hemoglobin A1C% w Est Avg Glu Routine Magnesium DAILY TSH w/ Reflex to FT4 Routine 12/07/18 05:00 Basic Metabolic Panel DAILY Complete Blood Count AUTO DIFF DAILY Magnesium DAILY 12/08/18 05:00 Basic Metabolic Panel DAILY Complete Blood Count AUTO DIFF DAILY Magnesium DAILY Acetaminophen (Tylenol) 650 mg PO Q6HR PRN PRN Reason: As Needed for Fever/Mild Pain Aspirin (Aspirin Ec) 81 mg PO DAILY [facility]AR[facility] Carvedilol (Coreg) 12.5 mg PO BID [facility] Dextrose (D50w) 25 gm IV PRN PRN PRN Reason: Hypoglycemia Enoxaparin Sodium (Lovenox) 40 mg SUBCUT DAILY [facility] Furosemide (Lasix) 40 mg IV Q12HR [facility] Insulin Aspart (Novolog Flexpen) 0 unit SUBCUT ACHS AMARJIT; Protocol Ondansetron HCl (Zofran) 4 mg IV Q8HR PRN PRN Reason: Nausea And Vomiting Pantoprazole Sodium (Protonix) 40 mg PO 0600 [facility] Sennosides (Senna) 8.6 mg PO BEDTIME [facility] Simvastatin (Zocor) 20 mg PO BEDTIME [facility] Spironolactone (Aldactone) 37.5 mg PO DAILY [facility] Vitamin D (Vitamin D3) 1,000 unit PO DAILY AMARJIT Discontinued Medications Furosemide (Lasix) 80 mg IV NOW ONE Stop: 12/05/18 17:42 Last Admin: 12/05/18 17:49 Dose: 80 mg Nitroglycerin (Nitro-Bid) 1 inch TOP NOW ONE Stop: 12/05/18 17:59 Last Admin: 12/05/18 18:16 Dose: 1 inch Ondansetron HCl (Zofran) 4 mg IV NOW ONE Stop: 12/05/18 17:43 Last Admin: 12/05/18 17:47 Dose: 4 mg Vital Signs - 8 hr 12/05/18 17:32 12/05/18 17:38 12/05/18 17:45 Temperature 98.1 F Pulse Rate 93 H 91 H Respiratory Rate 38 H 33 H Blood Pressure 127/68 Blood Pressure [Left Arm] 124/77 104/90 Pulse Oximetry 84 L 87 L 12/05/18 18:01 12/05/18 18:16 Temperature Pulse Rate 78 72 Respiratory Rate 18 20 Blood Pressure Blood Pressure [Left Arm] 127/68 116/64 Pulse Oximetry 99 99 MDM - Chest Pain Medical Records Data Attestation: I reviewed the patient's medical records. Lab Data Attestation: I reviewed the patient's lab results. Result diagrams: 12/05/18 17:30 12/05/18 17:30 Lab Results 12/05/18 12/05/18 12/05/18 Range/Units 17:30 17:30 17:30 WBC 13.3 H (4.5-11.0) X10^3/uL RBC 4.15 (4.0-5.2) X10^6/uL Hgb 13.0 (12.0-16.0) g/dL Hct 38.7 (36-46) % MCV 93.4 (80-100) fL MCH 31.3 (26-34) PG MCHC 33.5 (30-36) % RDW 13.6 (11.6-14.8) % Plt Count 210 (150-400) X10^3/uL Neut % (Auto) 71.4 (50-75) % Lymph % (Auto) 20.7 L (25-40) % Forrest % (Auto) 5.8 (3-14) % Eos % (Auto) 1.4 L (2-4) % Baso % (Auto) 0.7 (0-2) % Neut # (Auto) 9500 H (6588-0231) /uL Lymph # (Auto) 2700 (4327-2185) /uL Forrest # (Auto) 800 (0-900) /uL Eos # (Auto) 200 (0-450) /uL Baso # (Auto) 100 (0-100) /uL PT 11.3 (10.1-12.7) SECONDS INR 1.0 (0.9-1.3) APTT 33 (26.4-36.2) SECONDS Sodium 142 (137-145) mmol/L Potassium 3.9 (3.4-5.1) mmol/L Chloride 112 H (98-107) mmol/L Carbon Dioxide 22 (22-32) mmol/L BUN 21 H (7-17) mg/dL Creatinine 1.00 (0.52-1.04) mg/dL Estimated GFR 54.3 L (>60) mL/min BUN/Creatinine Ratio 21.0 (6-22) Glucose 194 H (80-110) mg/dL Calcium 9.5 (8.4-10.2) mg/dL Magnesium 2.2 (1.6-2.3) mg/dL Total Bilirubin 0.7 (0.2-1.3) mg/dL AST 27 (14-36) IU/L ALT 19 (9-52) IU/L Alkaline Phosphatase 85 (38-126) U/L Total Creatine Kinase 46 (30-135) U/L CK-MB (CK-2) TNP CK-MB (CK-2) Rel Index TNP Troponin I < 0.012 (0.01-0.034) ng/mL B-Natriuretic Peptide 2420 H (<100) Total Protein 7.2 (6.3-8.2) g/dL Albumin 4.0 (3.5-5.0) g/dL Globulin 3.2 (1.7-4.1) g/dL Albumin/Globulin Ratio 1.3 (1.0-2.8) Lipase 49 (23-300) U/L Imaging Data Chest x-ray: Radiologist's impression: [address] [address] XRay Report Signed Patient: Pillo Larsen#: [id number] : 1946Acct:[id number] Age/Sex: 73 / FDate of Service: 12/05/18 Loc: ED Accession Number: [id number] Procedure: XR chest 1V Ordering Provider: Yanira Adorno MD PROCEDURE: XR CHEST 1V INDICATIONS: chest pain TECHNIQUE: One view of the chest was acquired. COMPARISON: [facility], CR, XR CHEST 2V, 05/26/2018, 10:02. FINDINGS: Surgical changes and devices: Pacemaker Lungs and pleura: Interval development of diffuse interstitial pulmonary edema and mild alveolar pulmonary edema. No pleural fluid identified. Mediastinum: Mediastinal contours appear normal. Cardiomegaly. Bones and chest wall: No suspicious bony lesions. Overlying soft tissues appear unremarkable. IMPRESSION: Congestive heart failure exacerbation. Dictated by: Nile Chen M.D. on 12/05/2018 at 17:52 Approved by: Nile Chen M.D. on 12/05/2018 at 17:53 ECG Data Attestation: I personally reviewed and interpreted this ECG as follows: (See below) Prior ECG tracings: not available for review Interpretation: A 12 lead EKG performed December 05, 2017 at 1733, as follows: Regular ventricular rhythm with a rate of 91 beats per minute FL interval 217 milliseconds QRS duration 180 millisecond QTC interval 474 millisecond Marked left axis deviation Occasional PVCs No significant ST T wave changes Interpretation: Sinus rhythm with 1st degree AV block with occasional PVCs; marked left axis deviation; intraventricular conduction delay; no signs of acute ischemia; abnormal EKG as interpreted by ED MD. Critical Care Time Critical Care Time: Yes Total Critical Care Time: 40 Attestation: Critical care time was necessary, due to high probability of imminent decline and , due to acute CHF exacerbation and respiratory failure. Critical care time is exclusive of separately billable procedures. Critical care time included: Interviewing and examining the patient, ordering and reviewing laboratory studies, ordering and reviewing imaging studies, evaluating cardiac output, evaluating oxygen saturation, discussion with consultants, discussion with family, re-examining the patient and evaluating effects of interventions, and documentation. Discharge Plan Departure Patient Disposition: Admitted As Inpatient Clinical Impression: Acute exacerbation of CHF (congestive heart failure) Qualifiers: Heart failure type: unspecified Qualified Code(s): I50.9 - Heart failure, unspecified Respiratory failure Qualifiers: Chronicity: acute Respiratory failure complication: hypoxia Qualified Code(s): J96.01 - Acute respiratory failure with hypoxia Discharge Date/Time: 12/05/18 18:45 Interventions: ED Discharge Assessment Last Done: 12/05/18 18:45 Admit Date/Time: 12/05/18 18:13 Admit Provider: Bonilla Manzano
[2018-12-05] MEDS: CARVEDILOL 12.5 MG TABLET PO (21:12)
[2018-12-05] MEDS: SIMVASTATIN 20 MG TABLET PO (21:12)
[2018-12-05] MEDS: INSULIN ASPART 100 UNIT/ML INSULN PEN SUBCUT (21:15)
--- NOTE | 2018-12-05 22:09 | PC.NURSE ---
Addendum entered by Katja Ochoa R.N. 12/05/18 22:14: 2130 - RT titrate O2 down to 2L. Monitor. Original Note: 1855 - Pt to room from ER. Able to stand and transfer to bed. Placed on 3L NC per TIMING ADJUSTER, John. Pt alert and oriented. Able to answer questions appropriately. Reviewed home medications and last dose. Pt reports taking lasix prior to coming to the ER, however reports that she had not taken her morning dose. If I am out and about, I don't take it until I get home. Pt state that will be the only dose she would take for the day. Pt declines to have granados placed. SBA to BSC. Urine light straw colored. air sampling and monitoring shows SR 1st degree AVB and BBB. Pt denies chest pain. Denies nausea. Oriented to room and routine, Safety and call light use. Call light in reach.
[2018-12-05 23:50] LABS: Troponin I 0.053 ng/mL (0.01-0.034)
[2018-12-06] VITALS (11 sets, daily range): BP systolic 91–108; BP diastolic 38–55; PULSE 51–59; RESP 14–19; TEMP 36.3–36.8; O2SAT 92–98
[2018-12-06] MEDS: FUROSEMIDE 40 MG/4 ML VIAL IV ×3 (00:10→23:57)
--- NOTE | 2018-12-06 01:09 | PC.NURSE ---
0015-Patient is A/O x4, fatigued. Denies chest pain or dyspnea. SB, 1st degree AVB, BBB, SpO2 98% on 2L, faint crackles bases, otherwise CTA. Scheduled IV Lasix given. Call light in reach.
[2018-12-06 05:16] LABS: Blood Urea Nitrogen 22 mg/dL (7-17); Calcium 8.9 mg/dL (8.4-10.2); Carbon Dioxide 28 mmol/L (22-32); Chloride 104 mmol/L (98-107); Estimated Glomerular Filt Rate 48.7 mL/min (>60); Glucose 124 mg/dL (80-110); HEMOLYSIS < 15 (0-50); Magnesium 1.8 mg/dL (1.6-2.3); Potassium 3.2 mmol/L (3.4-5.1); Sodium 142 mmol/L (137-145)
[2018-12-06 05:18] LABS: Add Manual Diff / Slide Review NO; Basophils Absolute Auto 100 /uL (0-100); Basophils Percent Auto 0.7 % (0-2); Eosinophils Absolute Auto 100 /uL (0-450); Eosinophils Percent Auto 1.6 % (2-4); Hematocrit 35.8 % (36-46); Hemoglobin 12.2 g/dL (12.0-16.0); Lymphocytes Absolute Auto 1300 /uL (1100-4500); Lymphocytes Percent Auto 16.9 % (25-40); Mean Corpuscular Hemoglobin 31.6 PG (26-34); Mean Corpuscular Volume 92.9 fL (80-100); Monocytes Absolute Auto 500 /uL (0-900); Monocytes Percent Auto 6.8 % (3-14); Neutrophils Absolute Auto 5700 /uL (1500-7000); Platelet Count 147 X10^3/uL (150-400); Red Blood Cell Count 3.86 X10^6/uL (4.0-5.2); Red Cell Distribution Width 13.7 % (11.6-14.8); White Blood Cell Count 7.6 X10^3/uL (4.5-11.0)
[2018-12-06 05:46] LABS: Hemoglobin A1C% w Est Avg Glu 6.8 % (4.0-6.0)
[2018-12-06 08:29] LABS: Troponin I 0.048 ng/mL (0.01-0.034)
[2018-12-06] MEDS: PANTOPRAZOLE 40 MG TABLET PO (08:54)
[2018-12-06] MEDS: SODIUM CHLORIDE 0.9% FLUSH 10 ML IV ×2 (08:54→20:53)
[2018-12-06] MEDS: INSULIN ASPART 100 UNIT/ML INSULN PEN SUBCUT ×2 (08:54→12:19)
[2018-12-06] MEDS: CARVEDILOL 6.25 MG TABLET PO (08:57)
[2018-12-06] MEDS: POTASSIUM CHLORIDE 20 MEQ/15 ML UDC PO (08:57)
[2018-12-06] MEDS: ASPIRIN EC 81 MG TABLET PO (08:57)
[2018-12-06] MEDS: CHOLECALCIFEROL (VITAMIN D3) 1,000 UNIT TABLET 1000 UNIT PO (08:58)
[2018-12-06] MEDS: SPIRONOLACTONE 25 MG TABLET PO (08:58)
[2018-12-06] MEDS: ENOXAPARIN 40 MG/0.4 ML SYRINGE SUBCUT (08:58)
--- NOTE | 2018-12-06 09:59 | CM.DANOTE ---
DCP: Case received, EMR reviewed and met with patient. Introduced self and role. Was able to converse with patient to obtain baseline health history and living situation. DCP template/assessment completed with information currently available. Patient is a 73 year old female who admitted yesterday afternoon to the care of the hospitalist team. PCP: Dr. Arenas. Payer: confirmed: Medicare/[employer] Life. Patient came to the hospital via family vehicle secondary to shortness of breath and chest discomfort. Patient has history of CHF, has a defibrillator, and diabetes. Patient was diagnosed with hypoxia. She had initially been on BIPAP here, but is now off. Met with patient in her room. She was sitting in her chair by her bed, alert and oriented. Patient resides here in [place], lives alone. Has a niece that lives in [place]. Patient mentioned that she has the support of friends, Zeina and Dangelo, if she needs any help post discharge. Patient's primary care provider and spectrographic analyst is in [place]. She is driving, and is independent at home. Patient will be having an echo today. P: DCP to continue to follow. Discussed patient at team rounds, could go home tomorrow, and will await echo results. Susan Lott RN/Power Distribution Engineer
--- NOTE | 2018-12-06 11:29 | PM.PN.1 ---
Subjective Date Patient Seen: 12/06/18 Time Patient Seen: 08:20 Interval history: Ronit Virgen is a 73-year-old female with past medical history of CHFrEF secondary to currently unknown cardiomyopathy with defibrillator placement and diabetes who presented with acute onset of shortness of breath. She was admitted for acute decompensated heart failure, initially to the ICU. She was almost immediately taken off of BiPAP upon arrival to the ICU, and is now breathing comfortably on room air. She denies any chest pain. She denies any headaches, nausea, vomiting, abdominal pain, diaphoresis, arm pain. Her lower extremity swelling is improved. Exam Vital Signs (past 8 hours): - 12/06/18 04:45 12/06/18 07:00 12/06/18 08:00 Temperature 98.1 F 98.3 F Pulse Rate 53 L 51 L Respiratory Rate 16 14 Blood Pressure 91/38 L 95/55 L Pulse Oximetry 94 97 97 12/06/18 09:27 Temperature Pulse Rate Respiratory Rate Blood Pressure Pulse Oximetry 96 Fraction of Inspired Oxygen 50 Oxygen Delivery Method Room Air,Nasal Cannula Oxygen Flow Rate 0 Narrative Exam Narrative: GENERAL APPEARANCE: Well developed, well nourished, breathing comfortably speaking in full sentences. SKIN: Inspection of the skin reveals no rashes, ulcerations or petechiae. HEENT: The sclerae were anicteric and conjunctivae were pink and moist. Extraocular movements were intact and pupils were equal, round with normal accommodation. External inspection of the ears and nose showed no scars, lesions, or masses. Lips, teeth, and gums showed normal mucosa. The oral mucosa, hard and soft palate, tongue and posterior pharynx were unremarkable. NECK: Supple and symmetric. There was no thyroid enlargement, and no tenderness, or masses were felt. No JVD. CHEST: Normal AP diameter and normal contour without any kyphoscoliosis. LUNGS: Auscultation of the lungs revealed no wheezes, rhonchi, or rales. There were diminished breath sounds in the bilateral lung bases. CARDIOVASCULAR: There was a regular rate and rhythm without any murmurs, gallops, rubs. Peripheral pulses were 2+ and symmetric. ABDOMEN: Soft and nontender with normal bowel sounds. No ascites was noted. MUSCULOSKELETAL: There was no tenderness or effusions noted. Muscle strength and tone were normal. EXTREMITIES: No cyanosis, clubbing. Minimal pedal edema. NEUROLOGIC: Alert and oriented x 3. Normal affect. Strength is +5/5 in the Upper Extremities and Lower Extremities Bilaterally. Sensation to touch was normal. Objective Labs Result Diagrams: 12/06/18 04:43 12/06/18 04:43 Labs: Laboratory Results - last 24 hr 12/05/18 12/05/18 12/05/18 17:30 17:30 17:30 WBC 13.3 H RBC 4.15 Hgb 13.0 Hct 38.7 MCV 93.4 MCH 31.3 MCHC 33.5 RDW 13.6 Plt Count 210 Neut % (Auto) 71.4 Lymph % (Auto) 20.7 L [place] % (Auto) 5.8 Eos % (Auto) 1.4 L Baso % (Auto) 0.7 Neut # (Auto) 9500 H Lymph # (Auto) 2700 [place] # (Auto) 800 Eos # (Auto) 200 Baso # (Auto) 100 PT 11.3 INR 1.0 APTT 33 Sodium 142 Potassium 3.9 Chloride 112 H Carbon Dioxide 22 BUN 21 H Creatinine 1.00 Estimated GFR 54.3 L BUN/Creatinine Ratio 21.0 Glucose 194 H Hemoglobin A1c Calcium 9.5 Magnesium 2.2 Total Bilirubin 0.7 AST 27 ALT 19 Alkaline Phosphatase 85 Total Creatine Kinase 46 CK-MB (CK-2) TNP CK-MB (CK-2) Rel Index TNP Troponin I < 0.012 B-Natriuretic Peptide 2420 H Total Protein 7.2 Albumin 4.0 Globulin 3.2 Albumin/Globulin Ratio 1.3 Lipase 49 TSH Free T4 Nasal Screen MRSA (PCR) 12/05/18 12/05/18 12/06/18 18:55 23:20 04:43 WBC 7.6 RBC 3.86 L Hgb 12.2 Hct 35.8 L MCV 92.9 MCH 31.6 MCHC 34.0 RDW 13.7 Plt Count 147 L Neut % (Auto) 74.0 Lymph % (Auto) 16.9 L [place] % (Auto) 6.8 Eos % (Auto) 1.6 L Baso % (Auto) 0.7 Neut # (Auto) 5700 Lymph # (Auto) 1300 [place] # (Auto) 500 Eos # (Auto) 100 Baso # (Auto) 100 PT INR APTT Sodium Potassium Chloride Carbon Dioxide BUN Creatinine Estimated GFR BUN/Creatinine Ratio Glucose Hemoglobin A1c Calcium Magnesium Total Bilirubin AST ALT Alkaline Phosphatase Total Creatine Kinase CK-MB (CK-2) CK-MB (CK-2) Rel Index Troponin I 0.053 H B-Natriuretic Peptide Total Protein Albumin Globulin Albumin/Globulin Ratio Lipase TSH Free T4 Nasal Screen MRSA (PCR) Negative for mrsa 12/06/18 12/06/18 12/06/18 04:43 04:43 04:43 WBC RBC Hgb Hct MCV MCH MCHC RDW Plt Count Neut % (Auto) Lymph % (Auto) [place] % (Auto) Eos % (Auto) Baso % (Auto) Neut # (Auto) Lymph # (Auto) [place] # (Auto) Eos # (Auto) Baso # (Auto) PT INR APTT Sodium 142 Potassium 3.2 L Chloride 104 Carbon Dioxide 28 BUN 22 H Creatinine 1.10 H Estimated GFR 48.7 L BUN/Creatinine Ratio 20.0 Glucose 124 H Hemoglobin A1c 6.8 H Calcium 8.9 Magnesium 1.8 Total Bilirubin AST ALT Alkaline Phosphatase Total Creatine Kinase CK-MB (CK-2) CK-MB (CK-2) Rel Index Troponin I B-Natriuretic Peptide Total Protein Albumin Globulin Albumin/Globulin Ratio Lipase TSH 10.20 H Free T4 1.50 Nasal Screen MRSA (PCR) 12/06/18 04:43 WBC RBC Hgb Hct MCV MCH MCHC RDW Plt Count Neut % (Auto) Lymph % (Auto) [place] % (Auto) Eos % (Auto) Baso % (Auto) Neut # (Auto) Lymph # (Auto) [place] # (Auto) Eos # (Auto) Baso # (Auto) PT INR APTT Sodium Potassium Chloride Carbon Dioxide BUN Creatinine Estimated GFR BUN/Creatinine Ratio Glucose Hemoglobin A1c Calcium Magnesium Total Bilirubin AST ALT Alkaline Phosphatase Total Creatine Kinase CK-MB (CK-2) CK-MB (CK-2) Rel Index Troponin I 0.048 H B-Natriuretic Peptide Total Protein Albumin Globulin Albumin/Globulin Ratio Lipase TSH Free T4 Nasal Screen MRSA (PCR) Assessment & Plan Assessment & Plan narrative: Ronit Virgen is a 73-year-old female with past medical history of CHFrEF secondary to currently unknown cardiomyopathy with defibrillator placement and diabetes who presented with acute onset of shortness of breath starting earlier this afternoon, she is admitted to the ICU for acute hypoxemic respiratory failure secondary to decompensated heart failure. 1. Acute hypoxemic respiratory failure, present on admission - Now resolved. patient was hypoxic into the mid 80s, and tachypneic in the emergency room. She ultimately required BiPAP therapy with improvement in her respiratory symptoms. This is secondary to acute decompensated heart failure. She is now breathing comfortably. -continue management as below for decompensated heart failure -respiratory therapy consult - was briefly on bipap but now on room air -resume diet 2. Acute decompensated systolic heart failure, present on admission -unknown ejection fraction at this time as no records are currently available. 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 Unknown etiology for decompensation at this time. - obtain TTE -decreased coreg and spironolactone dosing today for borderline low BP -borderline low blood pressures, will continue to hold entresto -continue 40 mg of Lasix IV b.i.d. -monitor intake and output -daily weights -telemetry - K>4, Mg >2 - continue spironolactone daily, reduced dosing due to hypotension. 3. Elevated troponin, type II [place] - elevated troponin likely in setting of demand from decompensated heart failure. Troponin peaked at 0.05 and downtrended. Now resolved. 3. Diabetes, type II, chronic -not currently on home medications, but glucose was elevated to 190 on admission. -continue to check fingersticks, and A1c -will initiate low-dose sliding scale insulin while inpatient. 4. History of defibrillator placement - unknown etiology at this time but would assume for wide QRS with reduced EF. - obtain records - tele - TSH elevated with normal free T4, possibly secondary to acute illness, recommend outpatient follow up with cardiology and primar care. 5. Subclinical hypothyroidism - possibly secondary to amiodarone or due to her critical illness. TSH >10 with normal free t4. - Would recommend outpatient repeat TSH and thyroid studies with PMD. Follow up with cardiology as well in the outpatient setting for amiodarone management. DVT: Lovenox daily Code: full code FENGI: Heart healthy diet Dispo: Stable for regular floor Quality VTE Deep Vein Thrombosis/Pulmonary Embolism Present on Admission: No
[2018-12-06] MEDS: ACETAMINOPHEN 325 MG TABLET 650 MG PO (12:27)
--- NOTE | 2018-12-06 17:38 | PC.NURSE ---
Addendum entered by Katja Ochoa R.N. 12/06/18 20:55: 2030 -Pt awake, thought that it was 0830. Reoriented easily. Able to take HS meds without difficulty. Coreg held for HR of 55 at this time. Monitor. BG 181. No sliding scale coverage at this time. Denies back pain at rest. Call light in reach. Original Note: 1730 - Pt up to bathroom. Denies feeling SOB. RA sats 92-94%. Discuss treatment plan. Pt verbalized understanding. Dr. Manzano notified of pt c/o back tightness. States that she has chronic back pain and takes a muscle relaxer at home. Unsure of name. Orders pending. Call light in reach.
[2018-12-06] MEDS: METHOCARBAMOL 500 MG TABLET 750 MG PO (17:45)
[2018-12-06] MEDS: SIMVASTATIN 20 MG TABLET PO (20:53)
[2018-12-06] MEDS: SENNOSIDES 8.6 MG TABLET PO (20:53)
[2018-12-07] VITALS: BP 109/65; PULSE 60; RESP 15; TEMP 36.6; O2SAT 96
[2018-12-07 05:30] VITALS: BP 110/56; PULSE 58; RESP 16; TEMP 36.8; O2SAT 94
[2018-12-07 06:21] LABS: Blood Urea Nitrogen 26 mg/dL (7-17); Calcium 9.1 mg/dL (8.4-10.2); Carbon Dioxide 31 mmol/L (22-32); Chloride 103 mmol/L (98-107); Estimated Glomerular Filt Rate 40.2 mL/min (>60); Glucose 150 mg/dL (80-110); HEMOLYSIS < 15 (0-50); Magnesium 1.8 mg/dL (1.6-2.3); Potassium 3.4 mmol/L (3.4-5.1); Sodium 140 mmol/L (137-145)
[2018-12-07 06:22] LABS: Add Manual Diff / Slide Review NO; Basophils Absolute Auto 0 /uL (0-100); Basophils Percent Auto 0.5 % (0-2); Eosinophils Absolute Auto 100 /uL (0-450); Hematocrit 36.4 % (36-46); Lymphocytes Absolute Auto 1600 /uL (1100-4500); Lymphocytes Percent Auto 24.2 % (25-40); Mean Corpuscular Hemoglobin 30.8 PG (26-34); Mean Corpuscular Volume 93.4 fL (80-100); Monocytes Absolute Auto 500 /uL (0-900); Monocytes Percent Auto 8.2 % (3-14); Neutrophils Absolute Auto 4300 /uL (1500-7000); Neutrophils Percent Auto 65.1 % (50-75); Platelet Count 145 X10^3/uL (150-400); Red Blood Cell Count 3.89 X10^6/uL (4.0-5.2); Red Cell Distribution Width 13.4 % (11.6-14.8); White Blood Cell Count 6.6 X10^3/uL (4.5-11.0)
[2018-12-07] MEDS: PANTOPRAZOLE 40 MG TABLET PO (06:39)
[2018-12-07] MEDS: INSULIN ASPART 100 UNIT/ML INSULN PEN SUBCUT (08:58)
[2018-12-07] MEDS: ASPIRIN EC 81 MG TABLET PO (09:00)
[2018-12-07] MEDS: SPIRONOLACTONE 25 MG TABLET PO (09:01)
[2018-12-07] MEDS: CARVEDILOL 6.25 MG TABLET PO (09:01)
[2018-12-07] MEDS: CHOLECALCIFEROL (VITAMIN D3) 1,000 UNIT TABLET 1000 UNIT PO (09:01)
[2018-12-07] MEDS: ACETAMINOPHEN 325 MG TABLET 650 MG PO (09:01)
[2018-12-07 09:23] VITALS: BP 107/51; PULSE 51; RESP 14; TEMP 36.9; O2SAT 95
--- NOTE | 2018-12-07 12:29 | CM.DPC ---
DCP: continued: Case received, EMR reviewed. Pt is ok'd for d/c to the home setting and with clinic followup.
--- NOTE | 2018-12-07 19:53 | PM.DS.1 ---
History of Present Illness History of Present Illness Chief complaint: Possible heart attack Narrative: Ronit Virgen is a 73-year-old female with past medical history of CHFrEF secondary to currently unknown cardiomyopathy with defibrillator placement and diabetes who presented with acute onset of shortness of breath starting earlier this afternoon. She states that earlier this afternoon she had difficulty breathing, with diffuse chest discomfort and some nausea. She took 80 mg of p.o. Lasix at home, but did not improve her symptoms so she decided to come to the emergency room. Her chest pain started shortly after her shortness of breath. There is no radiation and is not associated with diaphoresis, arm pain, jaw pain, headache, or abdominal pain. It is located all over her chest and described as a moderate tightness. It worsens slightly with inspiration. She states that yesterday she noticed some increased leg swelling, but denies any orthopnea, dyspnea on exertion. She denies any changes in her diet, and her last heart failure admission was around 9 months ago. She follows with a television presenter at [facility]. She denies any changes in her medications. She has been seeing an ENT for some nasal congestion but denies any fevers, chills, worsening cough, or sputum production. In the emergency room she received 80 mg of IV Lasix, BNP was elevated to over 2000, and initial troponin was negative. Chest x-ray showed diffuse bilateral pulmonary edema. EKG showed sinus rhythm with ventricular conduction delay, grossly unchanged since her prior examination. Discharge Providers Provider Date of admission: 12/05/18 18:13 Discharge Date: 12/07/18 Primary care physician: Roman Arenas MD Consults: 12/05/18 18:46 Consult to Respiratory Therapy Evaluate & Treat Comment: Physician Instructions: Evaluate and treat Discharge provider: Bonilla Manzano DO Summary Hospital Course Discharge Diagnosis: 1. Acute hypoxemic respiratory failure, present on admission 2. Acute decompensated systolic heart failure, present on admission 3. Elevated troponin, type II [place] 3. Diabetes, type II, chronic 4. History of defibrillator placement 5. Subclinical hypothyroidism Hospital Course: Ronit Virgen is a 73-year-old female with past medical history of CHFrEF secondary to currently unknown cardiomyopathy with defibrillator placement and diabetes who presented with acute onset of shortness of breath. she was admitted to the ICU for acute hypoxemic respiratory failure secondary to decompensated heart failure and she improved rapidly with diuresis. 1. Acute hypoxemic respiratory failure, present on admission - Now resolved. patient was hypoxic into the mid 80s, and tachypneic in the emergency room. She ultimately required BiPAP therapy with improvement in her respiratory symptoms. This is secondary to acute decompensated heart failure. She is now breathing comfortably. -continue management as below for decompensated heart failure 2. Acute decompensated systolic heart failure, present on admission -unknown ejection fraction at this time as no records were found. But TTE here with EF of approx 25%. - TTE showed reduced EF, which is known but I was unable to obtain her outside records. She has a copy to give to her television presenter when she follows up. -decreased coreg and spironolactone dosing for borderline low blood pressures. -borderline low blood pressures, will continue to hold entresto -continue home lasix 40 mg daily. 3. Elevated troponin, type II [place] - elevated troponin likely in setting of demand from decompensated heart failure. Troponin peaked at 0.05 and downtrended. Now resolved. 3. Diabetes, type II, chronic -not currently on home medications. No need to resume based on inpatient glucose values. 4. History of defibrillator placement - unknown etiology at this time but would assume for wide QRS with reduced EF. - TSH elevated with normal free T4, possibly secondary to acute illness, recommend outpatient follow up with cardiology and primar care as noted below. 5. Subclinical hypothyroidism - possibly secondary to amiodarone or due to her critical illness. TSH >10 with normal free t4. - Would recommend outpatient repeat TSH and thyroid studies with PMD. Follow up with cardiology as well in the outpatient setting for amiodarone management. Status at Discharge Cognitive/behavioral status at discharge: oriented Functional status at discharge: independent ambulation Overall status at discharge: patient is back to baseline Time Spent with Patient Time spent: Greater than 30 minutes Exam Vital Signs (past 8 hours): Fraction of Inspired Oxygen 50 Oxygen Delivery Method Room Air Oxygen Flow Rate 0 Narrative Exam Narrative: GENERAL APPEARANCE: Well developed, well nourished, breathing comfortably speaking in full sentences. SKIN: Inspection of the skin reveals no rashes, ulcerations or petechiae. HEENT: The sclerae were anicteric and conjunctivae were pink and moist. Extraocular movements were intact and pupils were equal, round with normal accommodation. External inspection of the ears and nose showed no scars, lesions, or masses. Lips, teeth, and gums showed normal mucosa. The oral mucosa, hard and soft palate, tongue and posterior pharynx were unremarkable. NECK: Supple and symmetric. There was no thyroid enlargement, and no tenderness, or masses were felt. No JVD. CHEST: Normal AP diameter and normal contour without any kyphoscoliosis. LUNGS: Auscultation of the lungs revealed no wheezes, rhonchi, or rales. There were diminished breath sounds in the bilateral lung bases. CARDIOVASCULAR: There was a regular rate and rhythm without any murmurs, gallops, rubs. Peripheral pulses were 2+ and symmetric. ABDOMEN: Soft and nontender with normal bowel sounds. No ascites was noted. MUSCULOSKELETAL: There was no tenderness or effusions noted. Muscle strength and tone were normal. EXTREMITIES: No cyanosis, clubbing. Minimal pedal edema. NEUROLOGIC: Alert and oriented x 3. Normal affect. Strength is +5/5 in the Upper Extremities and Lower Extremities Bilaterally. Sensation to touch was normal. Objective Labs Result Diagrams: 12/07/18 05:08 12/07/18 05:08 Labs: Laboratory Results - last 24 hr 12/07/18 12/07/18 05:08 05:08 WBC 6.6 RBC 3.89 L Hgb 12.0 Hct 36.4 MCV 93.4 MCH 30.8 MCHC 33.0 RDW 13.4 Plt Count 145 L Neut % (Auto) 65.1 Lymph % (Auto) 24.2 L [place] % (Auto) 8.2 Eos % (Auto) 2.0 Baso % (Auto) 0.5 Neut # (Auto) 4300 Lymph # (Auto) 1600 [place] # (Auto) 500 Eos # (Auto) 100 Baso # (Auto) 0 Sodium 140 Potassium 3.4 Chloride 103 Carbon Dioxide 31 BUN 26 H Creatinine 1.30 H Estimated GFR 40.2 L BUN/Creatinine Ratio 20.0 Glucose 150 H Calcium 9.1 Magnesium 1.8 Discharge Plan Discharge Plan Patient Disposition: Home Discharge comment: You were admitted to the hospital for an exacerbation of heart failure. You improved with IV Lasix. Her blood pressure was low while you were here, so your Entresto was held and your doses of carvedilol and spironolactone were decreased. You were given a copy of the echocardiogram to give to her television presenter, who you should try to see in the next week. Your TSH level was slightly elevated as well, and your amiodarone was held upon discharge as well. You should continue taking all other medications. For your back pain you were given a small dose of Robaxin, if this continues please see your primary care physician for further management. Discharge Med Rec/Prescriptions Prescriptions: New carvedilol [Coreg] 6.25 mg Tablet 6.25 mg PO BID 30 Days Qty: 60 RF: 0 spironolactone 25 mg Tablet 25 mg PO DAILY 30 Days Qty: 30 RF: 0 methocarbamol [Robaxin-750] 750 mg tablet 750 mg PO TID PRN (Reason: muscle spasm) 7 Days Qty: 21 RF: 0 Continued furosemide 40 mg Tablet 40 mg PO BID PRN (Reason: extra fluid) RF: 0 omeprazole 40 mg Capsule,Delayed Release(Dr/Ec) 40 mg PO DAILY RF: 0 aspirin 81 mg Tablet,Delayed Release (Dr/Ec) 81 mg PO BEDTIME RF: 0 simvastatin 20 mg Tablet 20 mg PO BEDTIME RF: 0 glucose 4 gram Tablet,Chewable 16 g PO Q15M PRN (Reason: blood sugar) RF: 0 nitroglycerin [Nitrostat] 0.4 mg Tablet, Sublingual 0.4 mg Sublingual PRN PRN (Reason: Chest Pain) RF: 0 ondansetron 4 mg Tablet,Disintegrating 8 mg PO Q8H PRN (Reason: Nausea) RF: 0 fluticasone propionate 50 mcg/actuation [place],Suspension 2 spray INTRANASAL DAILY PRN (Reason: Nasal Congestion) RF: 0 peg 400-propylene glycol 0.4-0.3 % Drops 1 drp EYE-BOTH QID PRN (Reason: Dry Eyes) RF: 0 mexiletine 150 mg capsule 150 mg PO TID RF: 0 cholecalciferol (vitamin D3) [Vitamin D3] 1,000 unit Tablet 2,000 unit PO BEDTIME RF: 0 Discontinued carvedilol 12.5 mg Tablet 12.5 mg PO BID Qty: 0 RF: 0 spironolactone 25 mg Tablet 37.5 mg PO DAILY RF: 0 sacubitril-valsartan 24-26 mg Tablet 1 tab PO BID RF: 0 amiodarone 200 mg Tablet 200 mg PO BEDTIME RF: 0 Follow up/Referrals: Roman Arenas MD [Primary Care Provider] - Provider Discharge Instructions Diet: Diet as Tolerated and Low-sodium Activity: As tolerated Visit Report/Discharge Packet Instructions: DI for Heart Failure Discharge Data Primary Care Provider: Roman Arenas Discharges patient from system. Discharge Date/Time: 12/07/18 11:15 Quality VTE Deep Vein Thrombosis/Pulmonary Embolism Present on Admission: No
== END 2018-12-07 11:15 | disposition home or self-care (01) | DRG 280 ==
LOC: ED 17:51 → AC 18:13 → ICU 18:35
PROVIDERS: Admitting Provider Internal Medicine; Emergency Provider Emergency Medicine; PCP Internal Medicine; Visit Provider Internal Medicine
DX: I50.23 Acute on chronic systolic (congestive) heart failure (principal); J96.01 Acute respiratory failure with hypoxia; I21.A1 Myocardial infarction type 2; I42.9 Cardiomyopathy, unspecified; E11.9 Type 2 diabetes mellitus without complications; Z95.810 Presence of automatic (implantable) cardiac defibrillator
CPT/HCPCS: 36415; 36591; 71045; 80048; 80053; 82550; 82962; 83036; 83690; 83735; 83880; 84439; 84443; 84484; 85025; 85610; 85730; 87797; 93005; 93306; 94660; 96374; 96375; 99283; 99285; J1650; J1940; J2405

== ENCOUNTER → 2019-01-04 13:07 | Outpatient (CLI) | payer MEDICARE, OTHER, SELFPAY ==
[2018-12-05 17:45] VITALS: PULSE 80; RESP 26; O2SAT 50
[2018-12-05 19:09] VITALS: BMI 27.3
[2019-01-04 14:01] LABS: BUN Creatinine Ratio 21.4 (6-22); Blood Urea Nitrogen 30 mg/dL (7-17); Calcium 9.7 mg/dL (8.4-10.2); Carbon Dioxide 26 mmol/L (22-32); Chloride 102 mmol/L (98-107); Estimated Glomerular Filt Rate 36.9 mL/min (>60); Glucose 223 mg/dL (80-110); HEMOLYSIS < 15 (0-50); Potassium 4.3 mmol/L (3.4-5.1); Sodium 139 mmol/L (137-145)
== END ==
PROVIDERS: PCP Internal Medicine; Visit Provider Internal Medicine
DX: I50.22 Chronic systolic (congestive) heart failure (principal)
CPT/HCPCS: 36415; 80048

== ENCOUNTER 2019-02-24 22:14 | Emergency (ER) | payer MEDICARE, OTHER, SELFPAY ==
[2018-12-05 17:45] VITALS: PULSE 80; RESP 26; O2SAT 50
[2018-12-05 19:09] VITALS: BMI 27.3
[2019-02-24 22:21] VITALS: BP 126/56; PULSE 83; RESP 15; O2SAT 100
--- NOTE | 2019-02-24 22:21 | DI.RAD.S_ITS ---
PROCEDURE: XR CHEST 1V INDICATIONS: chest pain TECHNIQUE: One view of the chest was acquired. COMPARISON: [facility], CR, XR CHEST 1V, 12/05/2018, 17:38. FINDINGS: Surgical changes and devices: Left-sided cardiac pacer/defibrillator apparatus is identified. Lungs and pleura: Lungs are clear. No pleural effusions or pneumothorax. The pulmonary vascular markings appear to be within normal limits and are less pronounced on the current study, compared to the previous exam. Mediastinum: Mediastinal contours appear normal. The heart is enlarged. There is aortic atherosclerosis. Bones and chest wall: No suspicious bony lesions. Overlying soft tissues appear unremarkable. IMPRESSION: Cardiomegaly without overt heart failure. No pneumonia. Dictated by: Burt Dominguez M.D. on 02/24/2019 at 22:39 Approved by: Burt Dominguez M.D. on 02/24/2019 at 22:40
[2019-02-24 22:32] LABS: Add Manual Diff / Slide Review NO; Basophils Absolute Auto 100 /uL (0-100); Basophils Percent Auto 0.8 % (0-2); Eosinophils Absolute Auto 100 /uL (0-450); Eosinophils Percent Auto 1.8 % (2-4); Hematocrit 40.2 % (36-46); Hemoglobin 13.7 g/dL (12.0-16.0); Lymphocytes Absolute Auto 2600 /uL (1100-4500); Lymphocytes Percent Auto 35.1 % (25-40); Mean Corpuscular HGB Conc 34.1 % (30-36); Mean Corpuscular Hemoglobin 31.7 PG (26-34); Mean Corpuscular Volume 92.8 fL (80-100); Monocytes Absolute Auto 600 /uL (0-900); Monocytes Percent Auto 8.5 % (3-14); Neutrophils Absolute Auto 4000 /uL (1500-7000); Neutrophils Percent Auto 53.8 % (50-75); Platelet Count 179 X10^3/uL (150-400); Red Blood Cell Count 4.33 X10^6/uL (4.0-5.2); Red Cell Distribution Width 13.2 % (11.6-14.8); White Blood Cell Count 7.4 X10^3/uL (4.5-11.0)
[2019-02-24] MEDS: ASPIRIN 81 MG CHEW TAB 324 MG PO (22:35)
[2019-02-24 22:36] LABS: Prothrombin Time 11.2 SECONDS (10.1-12.7)
[2019-02-24 22:39] VITALS: BP 126/68; PULSE 75; RESP 16; O2SAT 98
[2019-02-24 22:39] LABS: PTT Partial Thromboplastin Tim 32 SECONDS (26.4-36.2)
[2019-02-24 22:41] LABS: Alanine Aminotransferase 28 IU/L (<35); Albumin 4.4 g/dL (3.5-5.0); Albumin Globulin Ratio 1.4 (1.0-2.8); Alkaline Phosphatase 66 U/L (38-126); Aspartate Aminotransferase 33 IU/L (14-36); Bilirubin Total 0.6 mg/dL (0.2-1.3); Blood Urea Nitrogen 36 mg/dL (7-17); Calcium 9.8 mg/dL (8.4-10.2); Carbon Dioxide 29 mmol/L (22-32); Chloride 102 mmol/L (98-107); Creatine Kinase 43 U/L (30-135); Globulin 3.1 g/dL (1.7-4.1); Glucose 227 mg/dL (80-110); HEMOLYSIS 40 (0-50); Lipase 120 U/L (23-300); Sodium 140 mmol/L (137-145); Total Protein 7.5 g/dL (6.3-8.2)
[2019-02-24 22:52] LABS: Troponin I < 0.012 ng/mL (0.01-0.034)
[2019-02-24 23:02] LABS: B Type Natriuretic Peptide 587 (<100)
--- NOTE | 2019-02-24 23:14 | ED.ARRPALP ---
HPI - Arrhythmia/Palpitations General Chief Complaint: Arrhythmia/Palpitations Stated Complaint: AED SENDING SHOCKS Time Seen by Provider: 02/24/19 22:15 Source: patient Mode of arrival: Ambulatory History of Present Illness HPI narrative: Patient is a 73-year-old female who has a history of CHF cardiomyopathy and an ICD. She states that she was getting ready for bed when her ICD went off. Actually went off 3 separate times. Just prior to discharge she had some jaw pain. She does have some shortness of breath with exertion no peripheral edema. She denies any pain now. It has never gone off before. It does seem that is a [employer] ICD. She is followed closely by her harvest supervisor in [place] Dr. Zayas. She states that she was previously on amiodarone however she did not tolerate it well and was taken off she is not on any antiarrhythmics at this time. Related Data Home Medications Medication Instructions Recorded Confirmed aspirin 81 mg PO BEDTIME 05/26/18 12/05/18 fluticasone propionate 2 spray INTRANASAL DAILY PRN 05/26/18 12/05/18 furosemide 40 mg PO BID PRN 05/26/18 12/05/18 glucose 16 g PO Q15M PRN 05/26/18 12/05/18 nitroglycerin [Nitrostat] 0.4 mg SUBLINGUAL PRN PRN 05/26/18 12/05/18 omeprazole 40 mg PO DAILY 05/26/18 12/05/18 ondansetron 8 mg PO Q8H PRN 05/26/18 12/05/18 peg 400-propylene glycol 1 drp EYE-BOTH QID PRN 05/26/18 12/05/18 simvastatin 20 mg PO BEDTIME 05/26/18 12/05/18 cholecalciferol (vitamin D3) 2,000 unit PO BEDTIME 12/05/18 12/06/18 [Vitamin D3] mexiletine 150 mg PO TID 12/05/18 12/05/18 levothyroxine 0.075 mcg PO DAILY 02/25/19 02/25/19 Allergies Allergy/AdvReac Type Severity Reaction Status Date / Time codeine [CODEINE] Allergy Severe rash, Verified 06/08/18 12:06 vomiting prochlorperazine Allergy Severe rash, Verified 06/08/18 12:06 [From COMPAZINE] vomiting Review of Systems Review of Systems Narrative: GENERAL: Denies chills, fatigue, malaise, fever, sweats, travel HEENT: Denies sinus pain, ear pain, sore throat, difficulty swallowing, neck pain RESPIRATORY: Denies dyspnea, cough, wheezing, hemoptysis, sputum. CARDIOVASCULAR: Denies chest pain, palpitations, orthopnea, edema GASTROINTESTINAL: Denies nausea, vomiting, abdominal pain, diarrhea, constipation, melena. : Denies dysuria, frequency, incontinence, hematuria, urinary retention, flank pain. MUSCULOSKELETAL: Denies weakness, joint pain, or bony pain SKIN: No rash, no erythema, no pruritus NEUROLOGIC: Denies weakness, dizziness, headache, numbness, change in speech, confusion PSYCHIATRIC: No concerning psychosocial issues. 12 point review of systems is negative except for those stated above and HPI Patient History Medical History Cardiac defibrillator in place (Acute) Cardiomyopathy (Acute) Chronic HFrEF (heart failure with reduced ejection fraction) (Acute) Diabetes (Acute) History of ectopic (Acute) Surgical History History of facial surgery (Acute) Hx of breast implants, bilateral (Acute) Social History household members: none Smoking Status: Never smoker alcohol intake: current alcohol intake frequency: holidays/special occasions only Substance Use Type: does not use Exam Initial Vital Signs Initial Vital Signs: Vital Signs Pulse Rate 83 02/24/19 22:21 Respiratory Rate 15 02/24/19 22:21 Blood Pressure 126/56 L 02/24/19 22:21 Pulse Oximetry 100 02/24/19 22:21 GENERAL: Well-appearing, well-nourished and in no acute distress. HEENT: Head atraumatic,EOMI, pupils reactive, face symmetric, moist mucous membranes CARDIOVASCULAR: Regular rate and rhythm without murmurs, rubs or gallops. RESPIRATORY: Breath sounds equal bilaterally, no wheezes rales or rhonchi. ABDOMEN: Soft, nontender. Normoactive bowel sounds all 4 quadrants. No guarding or rebound. EXTREMITIES: Normal range of motion, no clubbing or edema. Neurovascularly intact NEUROLOGICAL: Alert and oriented x4.Normal gait and speech. Cranial nerves II through XII grossly intact. SKIN: Warm, dry, no laceration, no petechiae, no rashes or lesions. Course Orders Ordered: ED Orders 02/24/19 22:20 B Type Natriuretic Peptide Stat Complete Blood Count AUTO DIFF Stat Comprehensive Metabolic Panel Stat Lipase Stat Partial Thromboplastin Time Stat Prothrombin Time INR Stat Troponin & CK Cardiac Panel Stat 02/24/19 22:21 XR chest 1V Stat EKG-12 Lead Stat 02/25/19 00:11 Magnesium Stat 02/25/19 00:15 Trop I [Troponin I] Stat 02/25/19 00:28 Free T3, Triiodothyronine Free Stat Free T4, Direct Thyroxine Stat Thyroid Stimulating Hormone Stat Discontinued Medications Amiodarone HCl (Pacerone) 300 mg IV NOW ONE Stop: 02/25/19 00:28 Last Admin: 02/25/19 01:04 Dose: 300 mg Documented by: SHALA Amiodarone HCl (Cordarone) 400 mg PO NOW ONE Stop: 02/25/19 00:28 Last Admin: 02/25/19 00:51 Dose: 400 mg Documented by: SHALA Aspirin (Aspirin Chew) 324 mg PO NOW ONE Stop: 02/24/19 22:22 Last Admin: 02/24/19 22:35 Dose: 324 mg Documented by: DEANA Diltiazem HCl (Cardizem) 10 mg IV NOW ONE Stop: 02/24/19 23:59 Last Admin: 02/25/19 00:36 Dose: Not Given Documented by: DEMAR Diltiazem HCl (Cardizem) 10 mg IV NOW ONE Stop: 02/24/19 23:58 Last Admin: 02/25/19 00:35 Dose: Not Given Documented by: DEMAR Consultations Consultation #1: Dr. Scott, cardiology at [facility] updated on patient's symptoms test results. If amiodarone 300 mg IV and 400 mg p.o.. On than starting on 400 mg p.o. b.i.d. for 1 week and follow up on Wednesday. Also requests TSH free T4 and free T3 be checked. If patient needs to be transferred admit to hospitalist service. Time: 00:29 Consultation #2: Dr. Vaughn, hospitalist updated patient's symptoms test results Cardiology recommendations. Agree with no treatment of elevated troponin at this time likely from ICD discharge. He does accept patient for transfer. Time: 02:14 Vital Signs Vital signs: Vital Signs - 8 hr 02/24/19 22:21 02/24/19 22:39 02/25/19 02:47 Pulse Rate 83 75 62 Respiratory Rate 15 16 16 Blood Pressure 126/56 L Blood Pressure [Left Arm] 126/68 95/82 Pulse Oximetry 100 98 97 MDM - Arrhythmia/Palpitations Lab Data Attestation: I reviewed the patient's lab results. Result diagrams: 02/24/19 22:20 02/24/19 22:20 Labs: Lab Results 02/24/19 02/24/19 02/24/19 Range/Units 22:20 22:20 22:20 WBC 7.4 (4.5-11.0) X10^3/uL RBC 4.33 (4.0-5.2) X10^6/uL Hgb 13.7 (12.0-16.0) g/dL Hct 40.2 (36-46) % MCV 92.8 (80-100) fL MCH 31.7 (26-34) PG MCHC 34.1 (30-36) % RDW 13.2 (11.6-14.8) % Plt Count 179 (150-400) X10^3/uL Neut % (Auto) 53.8 (50-75) % Lymph % (Auto) 35.1 (25-40) % [place] % (Auto) 8.5 (3-14) % Eos % (Auto) 1.8 L (2-4) % Baso % (Auto) 0.8 (0-2) % Neut # (Auto) 4000 (4565-8284) /uL Lymph # (Auto) 2600 (9311-4665) /uL [place] # (Auto) 600 (0-900) /uL Eos # (Auto) 100 (0-450) /uL Baso # (Auto) 100 (0-100) /uL PT 11.2 (10.1-12.7) SECONDS INR 1.0 (0.9-1.3) APTT 32 (26.4-36.2) SECONDS Sodium 140 (137-145) mmol/L Potassium 4.0 (3.4-5.1) mmol/L Chloride 102 (98-107) mmol/L Carbon Dioxide 29 (22-32) mmol/L BUN 36 H (7-17) mg/dL Creatinine 1.20 H (0.52-1.04) mg/dL Estimated GFR 44.0 L (>60) mL/min BUN/Creatinine Ratio 30.0 H (6-22) Glucose 227 H (80-110) mg/dL Calcium 9.8 (8.4-10.2) mg/dL Magnesium (1.6-2.3) mg/dL Total Bilirubin 0.6 (0.2-1.3) mg/dL AST 33 (14-36) IU/L ALT 28 (<35) IU/L Alkaline Phosphatase 66 (38-126) U/L Total Creatine Kinase 43 (30-135) U/L CK-MB (CK-2) TNP CK-MB (CK-2) Rel Index TNP Troponin I < 0.012 (0.01-0.034) ng/mL B-Natriuretic Peptide 587 H (<100) Total Protein 7.5 (6.3-8.2) g/dL Albumin 4.4 (3.5-5.0) g/dL Globulin 3.1 (1.7-4.1) g/dL Albumin/Globulin Ratio 1.4 (1.0-2.8) Lipase 120 (23-300) U/L TSH (0.47-4.68) uIU/mL Free T4 (0.78-2.19) ng/dL Free T3 (2.77-5.27) pg/mL 02/24/19 02/24/19 02/25/19 Range/Units 22:20 22:20 00:15 WBC (4.5-11.0) X10^3/uL RBC (4.0-5.2) X10^6/uL Hgb (12.0-16.0) g/dL Hct (36-46) % MCV (80-100) fL MCH (26-34) PG MCHC (30-36) % RDW (11.6-14.8) % Plt Count (150-400) X10^3/uL Neut % (Auto) (50-75) % Lymph % (Auto) (25-40) % [place] % (Auto) (3-14) % Eos % (Auto) (2-4) % Baso % (Auto) (0-2) % Neut # (Auto) (9203-5665) /uL Lymph # (Auto) (9716-8308) /uL [place] # (Auto) (0-900) /uL Eos # (Auto) (0-450) /uL Baso # (Auto) (0-100) /uL PT (10.1-12.7) SECONDS INR (0.9-1.3) APTT (26.4-36.2) SECONDS Sodium (137-145) mmol/L Potassium (3.4-5.1) mmol/L Chloride (98-107) mmol/L Carbon Dioxide (22-32) mmol/L BUN (7-17) mg/dL Creatinine (0.52-1.04) mg/dL Estimated GFR (>60) mL/min BUN/Creatinine Ratio (6-22) Glucose (80-110) mg/dL Calcium (8.4-10.2) mg/dL Magnesium 2.3 (1.6-2.3) mg/dL Total Bilirubin (0.2-1.3) mg/dL AST (14-36) IU/L ALT (<35) IU/L Alkaline Phosphatase (38-126) U/L Total Creatine Kinase (30-135) U/L CK-MB (CK-2) CK-MB (CK-2) Rel Index Troponin I 0.158 H* (0.01-0.034) ng/mL B-Natriuretic Peptide (<100) Total Protein (6.3-8.2) g/dL Albumin (3.5-5.0) g/dL Globulin (1.7-4.1) g/dL Albumin/Globulin Ratio (1.0-2.8) Lipase (23-300) U/L TSH 4.50 (0.47-4.68) uIU/mL Free T4 1.87 (0.78-2.19) ng/dL Free T3 3.10 (2.77-5.27) pg/mL Imaging Data Chest x-ray: Radiologist's impression: PROCEDURE: XR CHEST 1V INDICATIONS: chest pain TECHNIQUE: One view of the chest was acquired. COMPARISON: [facility], CR, XR CHEST 1V, 12/05/2018, 17:38. FINDINGS: Surgical changes and devices: Left-sided cardiac pacer/defibrillator apparatus is identified. Lungs and pleura: Lungs are clear. No pleural effusions or pneumothorax. The pulmonary vascular markings appear to be within normal limits and are less pronounced on the current study, compared to the previous exam. Mediastinum: Mediastinal contours appear normal. The heart is enlarged. There is aortic atherosclerosis. Bones and chest wall: No suspicious bony lesions. Overlying soft tissues appear unremarkable. IMPRESSION: Cardiomegaly without overt heart failure. No pneumonia. Dictated by: Burt Dominguez M.D. on 02/24/2019 at 22:39 ECG Data Attestation: I personally reviewed and interpreted this ECG as follows: Prior ECG tracings: available for review Interpretation: Sinus rhythm rate 80 for QRS 185 QTC [address] elevations or depressions similar to previous EKG MDM Narrative Medical decision making narrative: The patient is pacemaker interrogated in the emergency department. It does confirm 3 shocks, but actually detected it 4 times. Patient actually had episode of V-tach for about 5 minutes in the emergency department with rate of 135. She did not feel her ICD go off although on the monitor and rhythm strip it appears that it may half. Cardiology was consulted recommended loading her with amiodarone monitoring her briefly in discharging her home with follow up outpatient. Patient blood pressure was low at times but has seemed to have stable out. She still does not feel quite right. Her repeat troponin did return as positive 0.15, the cutoff is 0.12. This is likely due to her 3 recent discharges of the ICD, not likely to be myocardial infarction. Based on patient's symptoms she would likely benefit from at least observation. However no cardiology support available at [facility]. I spoke with Cardiology initially who said he was happy to consult the medicine service if patient needed to be transferred. , hospitalist at [facility] happily accepts patient for transfer. Critical Care Time Critical Care Time Critical Care Time: Yes Total Critical Care Time: 40 Attestation: The high probability of a clinically significant, sudden or life threatening deterioration of the [cardiovascular] system(s) required my full and direct attention, intervention and personal management. The aggregate critical care time was 40 minutes. This time is in addition to time spent performing reported procedures but includes the following: [x] Data Review and interpretation [x] Patient assessment and monitoring of vital signs [x] Documentation [x] Medication orders and management Discharge Plan Departure Patient Disposition: [facility] Clinical Impression: Ventricular tachycardia, Elevated troponin Prescriptions: No Action levothyroxine 0.075 mcg PO DAILY RF: 0 furosemide 40 mg Tablet 40 mg PO BID PRN (Reason: extra fluid) RF: 0 omeprazole 40 mg Capsule,Delayed Release(Dr/Ec) 40 mg PO DAILY RF: 0 aspirin 81 mg Tablet,Delayed Release (Dr/Ec) 81 mg PO BEDTIME RF: 0 simvastatin 20 mg Tablet 20 mg PO BEDTIME RF: 0 glucose 4 gram Tablet,Chewable 16 g PO Q15M PRN (Reason: blood sugar) RF: 0 nitroglycerin [Nitrostat] 0.4 mg Tablet, Sublingual 0.4 mg Sublingual PRN PRN (Reason: Chest Pain) RF: 0 ondansetron 4 mg Tablet,Disintegrating 8 mg PO Q8H PRN (Reason: Nausea) RF: 0 fluticasone propionate 50 mcg/actuation [place],Suspension 2 spray INTRANASAL DAILY PRN (Reason: Nasal Congestion) RF: 0 peg 400-propylene glycol 0.4-0.3 % Drops 1 drp EYE-BOTH QID PRN (Reason: Dry Eyes) RF: 0 mexiletine 150 mg capsule 150 mg PO TID RF: 0 cholecalciferol (vitamin D3) [Vitamin D3] 1,000 unit Tablet 2,000 unit PO BEDTIME RF: 0 Referrals: Roman Arenas MD [Primary Care Provider] -
[2019-02-25] VITALS (16 sets, daily range): BP systolic 88–125; BP diastolic 51–91; PULSE 16–131; RESP 15–67; O2SAT 96–100
[2019-02-25] MEDS: ONDANSETRON 4 MG/2 ML INJ (00:15)
[2019-02-25 00:22] LABS: Magnesium 2.3 mg/dL (1.6-2.3)
[2019-02-25] MEDS: AMIODARONE 200 MG TABLET 400 MG PO (00:51)
[2019-02-25] MEDS: AMIODARONE 150 MG/3 ML VIAL 300 MG IV (01:04)
[2019-02-25 01:10] LABS: Troponin I 0.158 ng/mL (0.01-0.034)
[2019-02-25 01:12] LABS: Free T4, Direct Thyroxine 1.87 ng/dL (0.78-2.19)
--- NOTE | 2019-02-25 01:20 | PC.NURSE ---
0001 vtach alarm, pt appears pale, wide complex tach on monitor, c/o neck/jaw pain 8/10, nausea, md notified, bp 88/46, duration approx 4 minutes, returned to sinus rhythm, reports improved discomfort
--- NOTE | 2019-02-25 03:46 | PC.NURSE ---
[facility] and [facility]. Left message with them. Pt aware of message left.
== END 2019-02-25 03:16 | disposition short-term general hospital (02) ==
PROVIDERS: Emergency Provider Emergency Medicine; PCP Internal Medicine
DX: I47.2 Ventricular tachycardia (principal); R79.89 Other specified abnormal findings of blood chemistry; Z95.810 Presence of automatic (implantable) cardiac defibrillator
CPT/HCPCS: 36415; 71045; 80053; 82550; 83690; 83735; 83880; 84439; 84443; 84481; 84484; 85025; 85610; 85730; 93005; 96374; 96375; 99285; 99291; J0282; J2405

== ENCOUNTER 2019-03-03 18:36 | Emergency (ER) | payer MEDICARE, OTHER, SELFPAY ==
[2018-12-05 17:45] VITALS: PULSE 80; RESP 26; O2SAT 50
[2018-12-05 19:09] VITALS: BMI 27.3
[2019-03-03 18:36] VITALS: BP 97/67; PULSE 126; RESP 18; TEMP 36.5; O2SAT 98
[2019-03-03 18:45] VITALS: BP 97/67; PULSE 126; RESP 18; O2SAT 96
--- NOTE | 2019-03-03 18:50 | DI.RAD.S_ITS ---
PROCEDURE: XR CHEST 1V INDICATIONS: chest pain TECHNIQUE: One view of the chest was acquired. COMPARISON: [facility], CR, XR CHEST 1V, 02/24/2019, 22:29. [facility], CR, XR CHEST 1V, 12/05/2018, 17:38. FINDINGS: Surgical changes and devices: Pacemaking device and multiple leads in stable position. Lungs and pleura: Lungs are mildly abnormal with an interstitial prominence, previously present. No pleural effusions or pneumothorax. Mediastinum: Mediastinal contours appear normal. Heart size is at the upper limits of normal. Bones and chest wall: No suspicious bony lesions. Overlying soft tissues appear unremarkable. IMPRESSION: No pneumonia found, no pleural effusion seen. Chronic mild interstitial prominence. A definite source of new chest pain is not seen. Multiple pacemaking leads extend from a large control device overlying the left heart. Dictated by: Amilcar Biswas M.D. on 03/03/2019 at 19:25 Approved by: Amilcar Biswas M.D. on 03/03/2019 at 19:26
--- NOTE | 2019-03-03 18:51 | ED_ITS ---
HPI - Chest Pain General Chief Complaint: Chest Pain Stated Complaint: Having heartattack Time Seen by Provider: 03/03/19 18:47 Source: patient Mode of arrival: Family Vehicle Limitations: no limitations History of Present Illness HPI narrative: 73-year-old female with a history of cardiomyopathy. Has a [employer]. Is not currently on any antiarrhythmics. Was seen in this emergency department approximately 7 days ago. Had ventricular tachycardia. Was transferred to [facility]. Patient states she was only up there for very short period of time. She states she had a stress te st. Was discharged home. Had no cardiac catheterization. Has a history of diabetes and hypothyroidism. Is not on any medications for her diabetes. States that approximately 3 hours prior to arrival here in the emergency department started having left-sided chest discomfort. Some shortness of b reath. Related Data Home Medications Medication Instructions Recorded Confirmed aspirin 81 mg PO BEDTIME 05/26/18 12/05/18 fluticasone propionate 2 spray INTRANASAL DAILY PRN 05/26/18 12/05/18 furosemide 40 mg PO BID PRN 05/26/18 12/05/18 glucose 16 g PO Q15M PRN 05/26/18 12/05/18 nitroglycerin [Nitrostat] 0.4 mg SUBLINGUAL PRN PRN 05/26/18 12/05/18 omeprazole 40 mg PO DAILY 05/26/18 12/05/18 ondansetron 8 mg PO Q8H PRN 05/26/18 12/05/18 peg 400-propylene glycol 1 drp EYE-BOTH QID PRN 05/26/18 12/05/18 simvastatin 20 mg PO BEDTIME 05/26/18 12/05/18 cholecalciferol (vitamin D3) 2,000 unit PO BEDTIME 12/05/18 12/06/18 [Vitamin D3] mexiletine 150 mg PO TID 12/05/18 12/05/18 levothyroxine 0.075 mcg PO DAILY 02/25/19 02/25/19 Allergies Allergy/AdvReac Type Severity Reaction Status Date / Time codeine [CODEINE] Allergy Severe rash, Verified 03/03/19 18:49 vomiting prochlorperazine Allergy Severe rash, Verified 03/03/19 18:49 [From COMPAZINE] vomiting Review of Systems Constitutional Constitutional: Denies fever(s) and Denies headache(s) Eyes Eyes: Denies diplopia ENT Ears, Nose, Mouth, and Throat: Denies headache(s) Cardiovascular Cardiovascular: Reports chest pain and Reports dyspnea Respiratory Respiratory: Denies cough and Reports dyspnea Gastrointestinal Gastrointestinal: Denies abdominal pain, Denies nausea and Denies vomiting Genitourinary Genitourinary: Denies dysuria Musculoskeletal Musculoskeletal: Denies back pain, Denies myalgias and Denies arthralgias Integumentary/Breasts Skin/Breast: Denies rash Neurologic Neurologic: Denies behavioral changes and Denies headache(s) Psychiatric Psychiatric: Denies behavioral changes Hematologic/Lymphatic Hematologic/Lymphatic: Denies easy bleeding and Denies easy bruising Patient History Medical History Cardiac defibrillator in place (Acute) Cardiomyopathy (Acute) Chronic HFrEF (heart failure with reduced ejection fraction) (Acute) Diabetes (Acute) History of ectopic (Acute) Surgical History History of facial surgery (Acute) Hx of breast implants, bilateral (Acute) Social History household members: none Smoking Status: Never smoker alcohol intake: current alcohol intake frequency: holidays/special occasions only Substance Use Type: does not use Exam Initial Vital Signs Initial Vital Signs: Vital Signs Temperature 97.7 F 03/03/19 18:36 Pulse Rate 126 H 03/03/19 18:36 Respiratory Rate 18 03/03/19 18:36 Blood Pressure 97/67 03/03/19 18:36 Pulse Oximetry 98 03/03/19 18:36 Const General: cooperative, No comfortable, acute distress and ill appearing Orientation: alert and awake HENMT Head: normal to inspection and normocephalic Chest Chest: normal inspection of the chest Resp Effort & Inspection: normal respiratory effort Auscultation: clear to auscultation bilaterally Cardio Rate: tachycardic Rhythm: regular rhythm Pulses: radial pulses present GI Inspection: non-distended Palpation: soft and No firm Skin Lesions: no lesions Rashes: no rashes Neuro General: alert, awake and oriented x3 Cognition: normal cognition Speech: speech normal Extrem General: normal to inspection and capillary refill normal Psych Appearance: grossly normal and well kempt Course Orders Ordered: ED Orders 03/03/19 18:50 XR chest 1V Stat EKG-12 Lead Stat 03/03/19 18:52 Complete Blood Count AUTO DIFF Stat Comprehensive Metabolic Panel Stat Lipase Stat Partial Thromboplastin Time Stat Prothrombin Time INR Stat Troponin & CK Cardiac Panel Stat 03/04/19 05:00 Hemoglobin and Hematocrit DAILY Heparin Sodium/Dextrose (Heparin Drip) 25,000 unit in 500 mls @ 15.72 mls/hr IV CONT AMARJIT; Protocol Last Admin: 03/03/19 19:10 Dose: 12 units/kg/hr, 15.72 mls/hr Documented by: SHALA Discontinued Medications Aspirin (Aspirin Chew) 324 mg PO NOW ONE Stop: 03/03/19 18:59 Last Admin: 03/03/19 19:04 Dose: 324 mg Documented by: SHALA Heparin Sodium (Porcine) (Heparin) 4,000 unit IV NOW ONE Stop: 03/03/19 18:59 Last Admin: 03/03/19 19:07 Dose: 4,000 unit Documented by: SHALA Morphine Sulfate (Morphine) 2 mg IV NOW ONE Stop: 03/03/19 19:13 Last Admin: 03/03/19 19:10 Dose: 2 mg Documented by: SHALA Nitroglycerin (Nitro-Bid) 1 inch TOP NOW ONE Stop: 03/03/19 18:59 Last Admin: 03/03/19 19:05 Dose: 1 inch Documented by: SHALA Vital Signs Vital signs: Vital Signs - 8 hr 03/03/19 18:36 Temperature 97.7 F Pulse Rate 126 H Respiratory Rate 18 Blood Pressure 97/67 Pulse Oximetry 98 MDM - Chest Pain Medical Records Data Attestation: I reviewed the patient's medical records. Lab Data Attestation: I reviewed the patient's lab results. Result diagrams: 03/03/19 18:52 03/03/19 18:52 Labs: Lab Results 03/03/19 03/03/19 03/03/19 Range/Units 18:52 18:52 18:52 WBC 9.7 (4.5-11.0) X10^3/uL RBC 4.58 (4.0-5.2) X10^6/uL Hgb 14.5 (12.0-16.0) g/dL Hct 43.0 (36-46) % MCV 94.0 (80-100) fL MCH 31.7 (26-34) PG MCHC 33.8 (30-36) % RDW 13.4 (11.6-14.8) % Plt Count 203 (150-400) X10^3/uL Neut % (Auto) 67.1 (50-75) % Lymph % (Auto) 22.7 L (25-40) % [place] % (Auto) 8.5 (3-14) % Eos % (Auto) 1.1 L (2-4) % Baso % (Auto) 0.6 (0-2) % Neut # (Auto) 6500 (8378-6808) /uL Lymph # (Auto) 2200 (0939-6020) /uL [place] # (Auto) 800 (0-900) /uL Eos # (Auto) 100 (0-450) /uL Baso # (Auto) 100 (0-100) /uL PT 11.9 (10.1-12.7) SECONDS INR 1.0 (0.9-1.3) APTT 32 (26.4-36.2) SECONDS Sodium 138 (137-145) mmol/L Potassium 3.5 (3.4-5.1) mmol/L Chloride 99 (98-107) mmol/L Carbon Dioxide 25 (22-32) mmol/L BUN 35 H (7-17) mg/dL Creatinine 1.60 H (0.52-1.04) mg/dL Estimated GFR 31.6 L (>60) mL/min BUN/Creatinine Ratio 21.9 (6-22) Glucose 159 H (80-110) mg/dL Calcium 10.2 (8.4-10.2) mg/dL Total Bilirubin 1.1 (0.2-1.3) mg/dL AST 36 (14-36) IU/L ALT 30 (<35) IU/L Alkaline Phosphatase 90 (38-126) U/L Total Creatine Kinase 45 (30-135) U/L CK-MB (CK-2) TNP CK-MB (CK-2) Rel Index TNP Troponin I 0.028 (0.01-0.034) ng/mL Total Protein 8.0 (6.3-8.2) g/dL Albumin 4.8 (3.5-5.0) g/dL Globulin 3.2 (1.7-4.1) g/dL Albumin/Globulin Ratio 1.5 (1.0-2.8) Lipase 42 D (23-300) U/L Imaging Data Chest x-ray: Attestation: I personally reviewed and interpreted this imaging study as follows: My impression: No wide mediastinum AICD in place No focal findings Radiologist's impression: ECG Data Attestation: I personally reviewed and interpreted this ECG as follows: Prior ECG tracings: available for review Interpretation: Sinus tachycardia Left bundle branch block appearance ST elevations 1 in aVL depressions V2 V3 V4 V5 and V6 This is new from prior EKG MDM Narrative Medical decision making narrative: Patient was given heparin, and an aspirin. EKG has new changes and given the patient's clinical presentation consistent with ST-elevation RI. Discussed the case with Dr. casiano at [facility]. We appreciate their help. Will send for cardiovascular intervention. Patient systolic blood pressures have been in the low 90s with a maps in the low 70s. Will hold on nitro paste. Was given morphine. Discharge Plan Departure Patient Disposition: [facility] Clinical Impression: Tachycardia Chest pain Qualifiers: Chest pain type: unspecified Qualified Code(s): R07.9 - Chest pain, unspecified ST elevation RI (STEMI) Qualifiers: Involved coronary artery: unspecified coronary artery Qualified Code(s): I21.3 - ST elevation (STEMI) myocardial infarction of unspecified site Prescriptions: No Action levothyroxine 0.075 mcg PO DAILY RF: 0 furosemide 40 mg Tablet 40 mg PO BID PRN (Reason: extra fluid) RF: 0 omeprazole 40 mg Capsule,Delayed Release(Dr/Ec) 40 mg PO DAILY RF: 0 aspirin 81 mg Tablet,Delayed Release (Dr/Ec) 81 mg PO BEDTIME RF: 0 simvastatin 20 mg Tablet 20 mg PO BEDTIME RF: 0 glucose 4 gram Tablet,Chewable 16 g PO Q15M PRN (Reason: blood sugar) RF: 0 nitroglycerin [Nitrostat] 0.4 mg Tablet, Sublingual 0.4 mg Sublingual PRN PRN (Reason: Chest Pain) RF: 0 ondansetron 4 mg Tablet,Disintegrating 8 mg PO Q8H PRN (Reason: Nausea) RF: 0 fluticasone propionate 50 mcg/actuation [place],Suspension 2 spray INTRANASAL DAILY PRN (Reason: Nasal Congestion) RF: 0 peg 400-propylene glycol 0.4-0.3 % Drops 1 drp EYE-BOTH QID PRN (Reason: Dry Eyes) RF: 0 mexiletine 150 mg capsule 150 mg PO TID RF: 0 cholecalciferol (vitamin D3) [Vitamin D3] 1,000 unit Tablet 2,000 unit PO BEDTIME RF: 0 Referrals: Roman Arenas MD [Primary Care Provider] -
[2019-03-03 18:59] LABS: Add Manual Diff / Slide Review NO; Basophils Absolute Auto 100 /uL (0-100); Basophils Percent Auto 0.6 % (0-2); Eosinophils Absolute Auto 100 /uL (0-450); Eosinophils Percent Auto 1.1 % (2-4); Hemoglobin 14.5 g/dL (12.0-16.0); Lymphocytes Absolute Auto 2200 /uL (1100-4500); Lymphocytes Percent Auto 22.7 % (25-40); Mean Corpuscular HGB Conc 33.8 % (30-36); Mean Corpuscular Hemoglobin 31.7 PG (26-34); Monocytes Absolute Auto 800 /uL (0-900); Monocytes Percent Auto 8.5 % (3-14); Neutrophils Absolute Auto 6500 /uL (1500-7000); Neutrophils Percent Auto 67.1 % (50-75); Platelet Count 203 X10^3/uL (150-400); Red Blood Cell Count 4.58 X10^6/uL (4.0-5.2); Red Cell Distribution Width 13.4 % (11.6-14.8); White Blood Cell Count 9.7 X10^3/uL (4.5-11.0)
[2019-03-03 19:00] VITALS: PULSE 123; RESP 17; O2SAT 92
[2019-03-03] MEDS: ASPIRIN 81 MG CHEW TAB 324 MG PO (19:04)
[2019-03-03 19:07] LABS: Prothrombin Time 11.9 SECONDS (10.1-12.7)
[2019-03-03] MEDS: HEPARIN 5,000 UNIT/ML VIAL 4000 UNIT IV (19:07)
[2019-03-03 19:10] LABS: PTT Partial Thromboplastin Tim 32 SECONDS (26.4-36.2)
[2019-03-03] MEDS: HEPARIN DRIP 25,000 UNIT/500 ML IV.SOLN 15.72 UNIT IV (19:10)
[2019-03-03] MEDS: MORPHINE 2 MG/ML INJ IV (19:10)
[2019-03-03 19:12] LABS: Alanine Aminotransferase 30 IU/L (<35); Albumin 4.8 g/dL (3.5-5.0); Albumin Globulin Ratio 1.5 (1.0-2.8); Alkaline Phosphatase 90 U/L (38-126); Aspartate Aminotransferase 36 IU/L (14-36); BUN Creatinine Ratio 21.9 (6-22); Bilirubin Total 1.1 mg/dL (0.2-1.3); Blood Urea Nitrogen 35 mg/dL (7-17); Calcium 10.2 mg/dL (8.4-10.2); Carbon Dioxide 25 mmol/L (22-32); Chloride 99 mmol/L (98-107); Creatine Kinase 45 U/L (30-135); Estimated Glomerular Filt Rate 31.6 mL/min (>60); Globulin 3.2 g/dL (1.7-4.1); Glucose 159 mg/dL (80-110); HEMOLYSIS 15 (0-50); Lipase 42 U/L (23-300); Potassium 3.5 mmol/L (3.4-5.1); Sodium 138 mmol/L (137-145)
[2019-03-03 19:15] VITALS: BP 95/72; PULSE 135; RESP 17; O2SAT 98
[2019-03-03] MEDS: ONDANSETRON 4 MG/2 ML INJ (19:20)
[2019-03-03 19:24] LABS: Troponin I 0.028 ng/mL (0.01-0.034)
== END 2019-03-03 19:22 | disposition short-term general hospital (02) ==
PROVIDERS: Emergency Provider Emergency Medicine; PCP Internal Medicine
DX: R00.0 Tachycardia, unspecified (principal); R07.9 Chest pain, unspecified; R06.02 Shortness of breath; I21.3 ST elevation (STEMI) myocardial infarction of unspecified site; R79.89 Other specified abnormal findings of blood chemistry; Z95.810 Presence of automatic (implantable) cardiac defibrillator
CPT/HCPCS: 36415; 71045; 80053; 82550; 83690; 84484; 85025; 85610; 85730; 93005; 96374; 96375; 99283; 99285; J1644; J2270; J2405

== ENCOUNTER 2019-03-11 23:07 | Emergency (ER) | payer MEDICARE, OTHER, SELFPAY ==
[2018-12-05 17:45] VITALS: PULSE 80; RESP 26; O2SAT 50
[2018-12-05 19:09] VITALS: BMI 27.3
[2019-03-11 23:14] VITALS: BMI 27.3
--- NOTE | 2019-03-11 23:14 | DI.RAD.S_ITS ---
PROCEDURE: XR CHEST 1V INDICATIONS: chest pain TECHNIQUE: One view of the chest was acquired. COMPARISON: [facility], CR, XR CHEST 1V, 03/03/2019, 18:57. FINDINGS: Surgical changes and devices: Cardiac defibrillator is unchanged. Lungs and pleura: Pulmonary opacities are present at the left lung base obscuring the left hemidiaphragm. The right lung is clear. No pneumothorax. Mediastinum: Mediastinal contours appear normal. Heart size is normal. Bones and chest wall: No suspicious bony lesions. Overlying soft tissues appear unremarkable. IMPRESSION: Left basilar pulmonary radiopacities. Differential considerations include atelectasis, aspiration, and infection. Dictated by: Deya Ibarra M.D. on 03/12/2019 at 6:47 Approved by: Deya Ibarra M.D. on 03/12/2019 at 6:48
--- NOTE | 2019-03-11 23:14 | ED_ITS ---
HPI - Chest Pain General Chief Complaint: Chest Pain Stated Complaint: states heart problem again Time Seen by Provider: 03/11/19 23:10 Source: patient and family Mode of arrival: Wheelchair Limitations: no limitations History of Present Illness HPI narrative: 73-year-old female nonsmoker with extensive cardiac history including pacemaker, AICD and recent hospitalizations at both [facility] and [facility] for cardiac reasons presents with severe retrosternal chest pressure which started at 6:30 p.m. tonight while at rest. Patient has associated symptoms such as shortness of breath, dizziness, weakness and lightheadedness. She denies nausea or vomiting. She has taken all of her medications as directed. She states that any exertion causes her symptoms to worsen and things seemed to improve slightly with rest. MD complaint: chest pain Onset (ago): hour(s) Duration: constant Onset: during rest Pain location: substernal Severity: moderate Quality: aching and heaviness Pain radiation: none Relieving factors: rest Exacerbating factors: exertion Associated symptoms: dyspnea Treatments prior to arrival chest pain: none Related Data On Oral Contraceptives: No Home Medications Medication Instructions Recorded Confirmed aspirin 81 mg PO BEDTIME 05/26/18 12/05/18 fluticasone propionate 2 spray INTRANASAL DAILY PRN 05/26/18 12/05/18 furosemide 40 mg PO BID PRN 05/26/18 12/05/18 glucose 16 g PO Q15M PRN 05/26/18 12/05/18 nitroglycerin [Nitrostat] 0.4 mg SUBLINGUAL PRN PRN 05/26/18 12/05/18 omeprazole 40 mg PO DAILY 05/26/18 12/05/18 ondansetron 8 mg PO Q8H PRN 05/26/18 12/05/18 peg 400-propylene glycol 1 drp EYE-BOTH QID PRN 05/26/18 12/05/18 simvastatin 20 mg PO BEDTIME 05/26/18 12/05/18 cholecalciferol (vitamin D3) 2,000 unit PO BEDTIME 12/05/18 12/06/18 [Vitamin D3] mexiletine 150 mg PO TID 12/05/18 12/05/18 levothyroxine 0.075 mcg PO DAILY 02/25/19 02/25/19 Allergies Allergy/AdvReac Type Severity Reaction Status Date / Time codeine [CODEINE] Allergy Severe rash, Verified 03/03/19 18:49 vomiting prochlorperazine Allergy Severe rash, Verified 03/03/19 18:49 [From COMPAZINE] vomiting Review of Systems Constitutional Constitutional: Denies chills, Denies fatigue, Denies fever(s), Denies frequent falls, Denies lethargy and Reports weakness Eyes Eyes: Denies change in vision, Denies eye discharge, Denies irritation and Denies loss of vision ENT Ears, Nose, Mouth, and Throat: Denies change in voice, Denies dizziness, Denies neck pain, Denies sore throat and Denies throat swelling Cardiovascular Cardiovascular: Reports chest pain, Denies irregular heart rhythm, Reports light headedness, Denies palpitations, Reports dyspnea, Reports dyspnea on exertion and Denies orthopnea Respiratory Respiratory: Denies cough, Reports dyspnea, Reports dyspnea on exertion and Denies wheezing Gastrointestinal Gastrointestinal: Denies abdominal pain, Denies change in bowel habits, Denies diarrhea, Denies nausea and Denies vomiting Genitourinary Genitourinary: Denies hematuria, Denies flank pain, Denies urinary incontinence and Denies urinary urgency Musculoskeletal Musculoskeletal: Denies back pain, Denies muscle weakness, Denies neck pain, Denies numbness and Denies tingling Integumentary/Breasts Skin/Breast: Denies pruritus, Denies erythema, Denies rash and Denies wounds Neurologic Neurologic: Denies behavioral changes, Denies confusion, Denies dizziness, Denies frequent falls, Denies loss of vision, Denies numbness, Denies tingling and Reports weakness Psychiatric Psychiatric: Denies anxiety, Denies behavioral changes, Denies confusion, Denies depression, Denies homicidal ideation and Denies suicidal ideation Endocrine Endocrine: Denies fatigue, Denies flushing and Denies palpitations Hematologic/Lymphatic Hematologic/Lymphatic: Denies easy bruising Allergic/Immunologic Allergic/Immunologic: Denies urticaria, Denies throat swelling and Denies wheezi ng Patient History Social History household members: none Smoking Status: Never smoker alcohol intake: current alcohol intake frequency: holidays/special occasions only Substance Use Type: does not use Exam Narrative Exam Narrative: GENERAL: [73] year old patient appears stated age. Well- nourished, well-developed patient, in mild distress. HEAD: Atraumatic. Normocephalic. EYES: Pupils equal round and reactive. Extraocular motions intact. No scleral icterus. No injection or drainage. ENT: Nose without bleeding, purulent drainage. Throat without erythema, tonsillar hypertrophy or exudate. Airway patent. NECK: Trachea midline. Non tender CARDIOVASCULAR: Tachycardic and regular rhythm without murmurs, gallops, or rubs. RESPIRATORY: Clear to auscultation. Breath sounds equal bilaterally. No wheezes, rales, or rhonchi. GASTROINTESTINAL: Abdomen soft, non-tender, nondistended. EXTREMITIES: No edema or joint tenderness. BACK: Nontender without deformity or crepitance. No flank tenderness. NEURO: AOx3. SKIN: No rash or erythema of visible areas Initial Vital Signs Initial Vital Signs: Vital Signs Temperature 97.5 F L 03/11/19 23:19 Pulse Rate 125 H 03/11/19 23:19 Respiratory Rate 19 03/11/19 23:19 Blood Pressure 108/80 03/11/19 23:19 Pulse Oximetry 94 03/11/19 23:19 Course Course Course Narrative: Patient had profound responses to various medications early in her visit including nitro and metoprolol. She had drops in her blood pressure into the 60s and 70s and became significantly symptomatic with dizziness increased shortness of breath. As her outside charts started to arrive it became clear how complex her cardiac history is with recent echo noting EF of 15% and global akinesis. Cardiology at [facility] was contacted and we discussed her case at length. She has a reported intolerance of IV amiodarone but tolerates the oral without any significant difficulty. After discussing this we elect to give a bolus of amiodarone 150 mg. Just after the bolus had completed the patient had a bradycardic episode down into the upper 20s and she became unresponsive. Her vital signs quickly improved as she converted to a sinus rhythm in the 70s with a blood pressure in the 110s but her period of unresponsiveness lasted a few minutes and gradually resolved over the course of the next hour or so. A repeat EKG found her to be in a sinus rhythm with a left bundle branch block. Repeat labs were drawn and I contacted Cardiology once again. Patient had a repeat interrogation and no sustained V- tach is noted. Call placed to hospitalist at [facility] whom is happy to accept the patient in transfer Orders Ordered: ED Orders 03/11/19 23:14 XR chest 1V Stat EKG-12 Lead Stat 03/11/19 23:15 Complete Blood Count AUTO DIFF Stat Comprehensive Metabolic Panel Stat D Dimer Stat Lipase Stat Troponin & CK Cardiac Panel Stat 03/12/19 00:16 CT angio chest PE protocol Stat 03/12/19 03:51 EKG-12 Lead Routine 03/12/19 04:40 Basic Metabolic Panel Stat Complete Blood Count AUTO DIFF Stat Troponin I Stat Sodium Chloride (Normal Saline 0.9%) 1,000 mls @ 150 mls/hr IV CONT AMARJIT Last Infusion: 03/12/19 05:15 Dose: 0 mls/hr Documented by: Admin: 03/11/19 23:29 Dose: 150 mls/hr Documented by: DANII Amiodarone HCl/Dextrose (Nexterone) 360 mg in 200 mls @ 33.333 mls/hr IV NOW ONE; Protocol Stop: 03/12/19 09:26 Last Admin: 03/12/19 05:15 Dose: Not Given Documented by: DANII Nitroglycerin (Nitrostat) 0.4 mg SL [id number] PRN PRN Reason: Chest Pain Last Admin: 03/12/19 00:01 Dose: 0.4 mg Documented by: DANII Discontinued Medications Aspirin (Aspirin Chew) 324 mg PO NOW ONE Stop: 03/11/19 23:15 Last Admin: 03/11/19 23:31 Dose: 324 mg Documented by: DANII Furosemide (Lasix) 40 mg IV NOW ONE Stop: 03/12/19 02:26 Last Admin: 03/12/19 03:06 Dose: 40 mg Documented by: DANII Amiodarone HCl/Dextrose (Nexterone) 150 mg in 100 mls @ 600 mls/hr IV NOW ONE; Protocol Stop: 03/12/19 03:20 Last Infusion: 03/12/19 03:40 Dose: 0 mls/hr Documented by: Admin: 03/12/19 03:22 Dose: 600 mls/hr Documented by: DANII Lorazepam (Ativan) 0.5 mg IV NOW ONE Stop: 03/12/19 04:41 Last Admin: 03/12/19 05:06 Dose: 0.5 mg Documented by: DANII Metoclopramide HCl (Reglan) 10 mg IV NOW ONE Stop: 03/12/19 03:51 Last Admin: 03/12/19 03:54 Dose: 10 mg Documented by: DANII Metoprolol Tartrate (Lopressor) 5 mg IV Q5M AMARJIT Stop: 03/12/19 01:56 Last Admin: 03/12/19 02:13 Dose: Not Given Documented by: Admin: 03/12/19 02:13 Dose: Not Given Documented by: Admin: 03/12/19 01:51 Dose: 5 mg Documented by: DANII Morphine Sulfate (Morphine) 2 mg IV NOW ONE Stop: 03/12/19 01:14 Last Admin: 03/12/19 01:19 Dose: 2 mg Documented by: DANII Ondansetron HCl (Zofran) 4 mg IV NOW ONE Stop: 03/12/19 01:02 Last Admin: 03/12/19 01:06 Dose: 4 mg Documented by: ANGEL Ondansetron HCl (Zofran) 4 mg IV NOW ONE Stop: 03/12/19 03:00 Last Admin: 03/12/19 03:06 Dose: 4 mg Documented by: DANII Reevaluation(s) Reevaluation #1: Called to see patient at bedside, complaining that her pain is worsening, repeat EKG ordered. Current systolic blood pressure is 106 will administer NG patient had precipitous drop in BP, no change in pain Vital Signs Vital signs: Vital Signs - 8 hr 03/11/19 23:19 03/11/19 23:55 03/12/19 00:01 Temperature 97.5 F L Pulse Rate 125 H 123 H 125 H Respiratory Rate 19 20 Blood Pressure 92/55 L Blood Pressure [Right Arm] 108/80 92/55 L Pulse Oximetry 94 95 03/12/19 00:05 03/12/19 00:10 03/12/19 00:15 Temperature Pulse Rate 123 H 124 H 123 H Respiratory Rate 21 18 16 Blood Pressure Blood Pressure [Right Arm] 83/52 L 85/62 L 90/61 Pulse Oximetry 93 93 94 03/12/19 00:35 03/12/19 01:40 03/12/19 02:15 Temperature Pulse Rate 123 H 120 H 116 H Respiratory Rate 12 17 18 Blood Pressure Blood Pressure [Right Arm] 99/61 94/63 82/63 L Pulse Oximetry 96 96 96 03/12/19 02:20 03/12/19 02:25 03/12/19 02:31 Temperature Pulse Rate 116 H 117 H 117 H Respiratory Rate 19 20 Blood Pressure Blood Pressure [Right Arm] 82/56 L 77/59 L 84/53 L Pulse Oximetry 95 96 96 03/12/19 02:55 03/12/19 03:50 Temperature Pulse Rate 116 H 72 Respiratory Rate 22 22 Blood Pressure Blood Pressure [Right Arm] 86/56 L 106/66 Pulse Oximetry 94 92 MDM - Chest Pain Lab Data Result diagrams: 03/12/19 04:40 03/12/19 04:40 Labs: Lab Results 03/11/19 03/11/19 03/11/19 Range/Units 23:15 23:15 23:15 WBC 11.9 H (4.5-11.0) X10^3/uL RBC 4.07 (4.0-5.2) X10^6/uL Hgb 12.7 (12.0-16.0) g/dL Hct 38.7 (36-46) % MCV 95.2 (80-100) fL MCH 31.2 (26-34) PG MCHC 32.7 (30-36) % RDW 13.7 (11.6-14.8) % Plt Count 204 (150-400) X10^3/uL Neut % (Auto) 67.2 (50-75) % Lymph % (Auto) 24.3 L (25-40) % [place] % (Auto) 6.8 (3-14) % Eos % (Auto) 1.0 L (2-4) % Baso % (Auto) 0.7 (0-2) % Neut # (Auto) 8000 H (2865-0719) /uL Lymph # (Auto) 2900 (3448-4428) /uL [place] # (Auto) 800 (0-900) /uL Eos # (Auto) 100 (0-450) /uL Baso # (Auto) 100 (0-100) /uL D-Dimer 822 H (<230) ng/mL Sodium 140 (137-145) mmol/L Potassium 4.2 (3.4-5.1) mmol/L Chloride 109 H (98-107) mmol/L Carbon Dioxide 24 (22-32) mmol/L BUN 25 H (7-17) mg/dL Creatinine 1.10 H (0.52-1.04) mg/dL Estimated GFR 48.7 L (>60) mL/min BUN/Creatinine Ratio 22.7 H (6-22) Glucose 183 H (80-110) mg/dL Calcium 9.6 (8.4-10.2) mg/dL Total Bilirubin 0.7 (0.2-1.3) mg/dL AST 28 (14-36) IU/L ALT 22 (<35) IU/L Alkaline Phosphatase 59 (38-126) U/L Total Creatine Kinase 43 (30-135) U/L CK-MB (CK-2) TNP CK-MB (CK-2) Rel Index TNP Troponin I 0.018 (0.01-0.034) ng/mL Total Protein 7.2 (6.3-8.2) g/dL Albumin 4.1 (3.5-5.0) g/dL Globulin 3.1 (1.7-4.1) g/dL Albumin/Globulin Ratio 1.3 (1.0-2.8) Lipase 90 D (23-300) U/L 03/12/19 03/12/19 Range/Units 04:40 04:40 WBC 10.7 (4.5-11.0) X10^3/uL RBC 4.02 (4.0-5.2) X10^6/uL Hgb 12.5 (12.0-16.0) g/dL Hct 38.0 (36-46) % MCV 94.4 (80-100) fL MCH 31.1 (26-34) PG MCHC 33.0 (30-36) % RDW 13.9 (11.6-14.8) % Plt Count 175 (150-400) X10^3/uL Neut % (Auto) 79.8 H (50-75) % Lymph % (Auto) 13.8 L (25-40) % [place] % (Auto) 5.3 (3-14) % Eos % (Auto) 0.7 L (2-4) % Baso % (Auto) 0.4 (0-2) % Neut # (Auto) 8500 H (4178-2763) /uL Lymph # (Auto) 1500 (9977-9274) /uL [place] # (Auto) 600 (0-900) /uL Eos # (Auto) 100 (0-450) /uL Baso # (Auto) 0 (0-100) /uL D-Dimer (<230) ng/mL Sodium 141 (137-145) mmol/L Potassium 4.3 (3.4-5.1) mmol/L Chloride 111 H (98-107) mmol/L Carbon Dioxide 19 L (22-32) mmol/L BUN 25 H (7-17) mg/dL Creatinine 1.10 H (0.52-1.04) mg/dL Estimated GFR 48.7 L (>60) mL/min BUN/Creatinine Ratio 22.7 H (6-22) Glucose 231 H (80-110) mg/dL Calcium 9.6 (8.4-10.2) mg/dL Total Bilirubin (0.2-1.3) mg/dL AST (14-36) IU/L ALT (<35) IU/L Alkaline Phosphatase (38-126) U/L Total Creatine Kinase (30-135) U/L CK-MB (CK-2) CK-MB (CK-2) Rel Index Troponin I 0.015 (0.01-0.034) ng/mL Total Protein (6.3-8.2) g/dL Albumin (3.5-5.0) g/dL Globulin (1.7-4.1) g/dL Albumin/Globulin Ratio (1.0-2.8) Lipase (23-300) U/L Critical Care Time Critical Care Time Critical Care Time: Yes Total Critical Care Time: 45 Attestation: The high probability of a clinically significant, sudden or life threatening deterioration of the [CV] system(s) required my full and direct attention, intervention and personal management. The aggregate critical care time was [45] minutes. This time is in addition to time spent performing reported procedures but includes the following: [x] Data Review and interpretation [x] Patient assessment and monitoring of vital signs [x] Documentation [x] Medication orders and management Discharge Plan Departure Patient Disposition: [facility] Clinical Impression: Chest pain, Ventricular tachycardia Prescriptions: No Action levothyroxine 0.075 mcg PO DAILY RF: 0 furosemide 40 mg Tablet 40 mg PO BID PRN (Reason: extra fluid) RF: 0 omeprazole 40 mg Capsule,Delayed Release(Dr/Ec) 40 mg PO DAILY RF: 0 aspirin 81 mg Tablet,Delayed Release (Dr/Ec) 81 mg PO BEDTIME RF: 0 simvastatin 20 mg Tablet 20 mg PO BEDTIME RF: 0 glucose 4 gram Tablet,Chewable 16 g PO Q15M PRN (Reason: blood sugar) RF: 0 nitroglycerin [Nitrostat] 0.4 mg Tablet, Sublingual 0.4 mg Sublingual PRN PRN (Reason: Chest Pain) RF: 0 ondansetron 4 mg Tablet,Disintegrating 8 mg PO Q8H PRN (Reason: Nausea) RF: 0 fluticasone propionate 50 mcg/actuation [place],Suspension 2 spray INTRANASAL DAILY PRN (Reason: Nasal Congestion) RF: 0 peg 400-propylene glycol 0.4-0.3 % Drops 1 drp EYE-BOTH QID PRN (Reason: Dry Eyes) RF: 0 mexiletine 150 mg capsule 150 mg PO TID RF: 0 cholecalciferol (vitamin D3) [Vitamin D3] 1,000 unit Tablet 2,000 unit PO BEDTIME RF: 0 Referrals: Roman Arenas MD [Primary Care Provider] -
[2019-03-11 23:19] VITALS: BP 108/80; PULSE 125; RESP 19; TEMP 36.4; O2SAT 94
[2019-03-11] MEDS: SODIUM CHLORIDE 0.9% 1,000 ML 150 ML IV (23:29)
[2019-03-11] MEDS: ASPIRIN 81 MG CHEW TAB 324 MG PO (23:31)
[2019-03-11 23:33] LABS: Add Manual Diff / Slide Review NO; Basophils Absolute Auto 100 /uL (0-100); Basophils Percent Auto 0.7 % (0-2); Eosinophils Absolute Auto 100 /uL (0-450); Hematocrit 38.7 % (36-46); Hemoglobin 12.7 g/dL (12.0-16.0); Lymphocytes Absolute Auto 2900 /uL (1100-4500); Lymphocytes Percent Auto 24.3 % (25-40); Mean Corpuscular HGB Conc 32.7 % (30-36); Mean Corpuscular Hemoglobin 31.2 PG (26-34); Mean Corpuscular Volume 95.2 fL (80-100); Monocytes Absolute Auto 800 /uL (0-900); Monocytes Percent Auto 6.8 % (3-14); Neutrophils Absolute Auto 8000 /uL (1500-7000); Neutrophils Percent Auto 67.2 % (50-75); Platelet Count 204 X10^3/uL (150-400); Red Blood Cell Count 4.07 X10^6/uL (4.0-5.2); Red Cell Distribution Width 13.7 % (11.6-14.8); White Blood Cell Count 11.9 X10^3/uL (4.5-11.0)
[2019-03-11 23:37] LABS: D Dimer 822 ng/mL (<230)
[2019-03-11 23:38] LABS: Alanine Aminotransferase 22 IU/L (<35); Albumin 4.1 g/dL (3.5-5.0); Albumin Globulin Ratio 1.3 (1.0-2.8); Alkaline Phosphatase 59 U/L (38-126); Aspartate Aminotransferase 28 IU/L (14-36); BUN Creatinine Ratio 22.7 (6-22); Bilirubin Total 0.7 mg/dL (0.2-1.3); Blood Urea Nitrogen 25 mg/dL (7-17); Calcium 9.6 mg/dL (8.4-10.2); Carbon Dioxide 24 mmol/L (22-32); Chloride 109 mmol/L (98-107); Creatine Kinase 43 U/L (30-135); Estimated Glomerular Filt Rate 48.7 mL/min (>60); Globulin 3.1 g/dL (1.7-4.1); Glucose 183 mg/dL (80-110); Lipase 90 U/L (23-300); Sodium 140 mmol/L (137-145); Total Protein 7.2 g/dL (6.3-8.2)
[2019-03-11 23:40] LABS: HEMOLYSIS 60 (0-50)
[2019-03-11 23:41] LABS: Potassium 4.2 mmol/L (3.4-5.1)
[2019-03-11 23:50] LABS: Troponin I 0.018 ng/mL (0.01-0.034)
--- NOTE | 2019-03-11 23:52 | PC.NURSE ---
Pt reports increased pain with deep inspiration.
[2019-03-11 23:55] VITALS: BP 92/55; PULSE 123; RESP 20; O2SAT 95
[2019-03-12] VITALS (12 sets, daily range): BP systolic 77–106; BP diastolic 52–66; PULSE 72–125; RESP 12–22; O2SAT 92–96
[2019-03-12] MEDS: NITROGLYCERIN 0.4 MG SL TAB SL (00:01)
--- NOTE | 2019-03-12 00:16 | DI.CT.S_ITS ---
PROCEDURE: CT ANGIO CHEST PE PROTOCOL INDICATIONS: chest pain, SOB, tachycardia, elevated DDimer TECHNIQUE: After the administration of intravenous contrast, 2 mm thick sections acquired from the pulmonary apices to the posterior costophrenic angles. 3-dimensional maximum intensity projection (MIP) coronal and sagittal reformats were then acquired through the thorax. For radiation dose reduction, the following was used: automated exposure control, adjustment of mA and/or kV according to patient size. COMPARISON: [facility], CT, CT ANGIO CHEST PE PROTOCOL, 05/26/2018, 10:41. FINDINGS: Image quality: Excellent. Pulmonary arteries: Pulmonary arteries are normal in size, and demonstrate no intraluminal filling defects to suggest central pulmonary embolism. Lungs and pleura: There is a small low-density right pleural effusion and a trace left pleural effusion. A 1.0 cm groundglass nodule is present within the left apex (series 5, image 54). There is upper and midlung intralobular septal thickening. Probable trace fluid is present within the right oblique fissure. There is bilateral dependent atelectasis. Subtle groundglass opacities are present within the anterior aspect of the right upper lobe. Mediastinum: Heart size is enlarged, without pericardial effusion. No mediastinal or hilar adenopathy. Thoracic aorta is normal in caliber and enhancement. Atheromatous calcifications are present at the thoracic aortic arch. Esophagus is normal in caliber, without hiatal hernia. Bones and chest wall: A right breast implant is grossly intact. The left breast implant is deflated. A left anterior chest cardiac pacer is noted. No suspicious bony lesions. Ribs and thoracic spine appear intact throughout. Thyroid gland is unremarkable. No axillary or supraclavicular adenopathy. Abdomen: Visualized upper abdominal solid organs appear normal in the early arterial phase of enhancement. IMPRESSION: 1. No acute pulmonary embolus. 2. Cardiomegaly. 3. Small pleural effusions and pulmonary edema. 4. Left apical groundglass nodule and patchy right upper lobe airspace opacity suspicious for multifocal infection or aspiration. Short interval followup is recommended to resolution and to exclude pulmonary neoplasm. These findings are concordant with the overnight interpretation. However, followup was not recommended for the pulmonary radiopacities. Dictated by: Deya Ibarra M.D. on 03/12/2019 at 6:54 Approved by: Deya Ibarra M.D. on 03/12/2019 at 7:01
--- NOTE | 2019-03-12 00:47 | PC.NURSE ---
Pt had reported increase in pain. Provider aware, received order for nitro. Bp dropped into 80s systolically. after 1 dose. provider aware.
[2019-03-12] MEDS: ONDANSETRON 4 MG/2 ML INJ IV ×2 (01:06→03:06)
[2019-03-12] MEDS: MORPHINE 2 MG/ML INJ IV (01:19)
--- NOTE | 2019-03-12 01:20 | PC.NURSE ---
Pt to ct, after receiving ct contrast via the iv. became very nauseous, sat patient up, informed provider, received order for zofran and given as per order.
[2019-03-12] MEDS: METOPROLOL TARTRATE 5 MG/5 ML INJ IV (01:51)
--- NOTE | 2019-03-12 03:00 | PC.NURSE ---
In and out of room multiple times checking a pt with blood pressures. Pt continues with chest pain at 6 after receiving morphine, continues with dizziness and lighted headed. Bp's continue to be anywhere from from 68-high 80s. Continuing to monitor closely for changes. Provider aware of symptoms and vital signs. HR continues around 117.
[2019-03-12] MEDS: FUROSEMIDE 40 MG/4 ML VIAL IV (03:06)
[2019-03-12] MEDS: AMIODARONE 150 MG/100 ML PIGGYBACK 600 MG IV (03:22)
[2019-03-12] MEDS: METOCLOPRAMIDE 10 MG/2 ML INJ IV (03:54)
--- NOTE | 2019-03-12 04:15 | PC.NURSE ---
Pt states have use commode, got pt up to bsc and she started having multiple episodes of emesis. provider aware. New order for ativan.
[2019-03-12 04:56] LABS: Add Manual Diff / Slide Review NO; Basophils Absolute Auto 0 /uL (0-100); Basophils Percent Auto 0.4 % (0-2); Eosinophils Absolute Auto 100 /uL (0-450); Eosinophils Percent Auto 0.7 % (2-4); Hemoglobin 12.5 g/dL (12.0-16.0); Lymphocytes Absolute Auto 1500 /uL (1100-4500); Lymphocytes Percent Auto 13.8 % (25-40); Mean Corpuscular Hemoglobin 31.1 PG (26-34); Mean Corpuscular Volume 94.4 fL (80-100); Monocytes Absolute Auto 600 /uL (0-900); Monocytes Percent Auto 5.3 % (3-14); Neutrophils Absolute Auto 8500 /uL (1500-7000); Neutrophils Percent Auto 79.8 % (50-75); Platelet Count 175 X10^3/uL (150-400); Red Blood Cell Count 4.02 X10^6/uL (4.0-5.2); Red Cell Distribution Width 13.9 % (11.6-14.8); White Blood Cell Count 10.7 X10^3/uL (4.5-11.0)
[2019-03-12] MEDS: LORazepam 2 MG/ML INJ 0.5 MG IV (05:06)
[2019-03-12 05:14] LABS: BUN Creatinine Ratio 22.7 (6-22); Blood Urea Nitrogen 25 mg/dL (7-17); Calcium 9.6 mg/dL (8.4-10.2); Carbon Dioxide 19 mmol/L (22-32); Chloride 111 mmol/L (98-107); Estimated Glomerular Filt Rate 48.7 mL/min (>60); Glucose 231 mg/dL (80-110); HEMOLYSIS < 15 (0-50); Potassium 4.3 mmol/L (3.4-5.1); Sodium 141 mmol/L (137-145)
[2019-03-12 05:26] LABS: Troponin I 0.015 ng/mL (0.01-0.034)
--- NOTE | 2019-03-12 05:29 | PC.NURSE ---
Pt receiving bolus of amiodarone, Pt then had a bp of 64/50 hr at 118 provider aware. was ordered to stop amiodarone. bolus had been completed, did hang drip. Pt continued with dizziness and pain in chest 6 out 10. At 0341, pt heart rate dropped to 32. Provider aware. Into room with pt. Pt unresponsive but with eyes open. performed sternal rub with minimal response. Hr increased to 70s and in a normal sinus rhythm. for a few minutes after, pt continued to have a fixed gaze with minimal response to staff. Pt immediately started throwing but was able to protect airway. Ekg performed and pt back to full awareness and talking with staff. Denies feeling aicd shock. Interrogated pace maker again. had episode of incontinence during episode.
--- NOTE | 2019-03-12 06:59 | PC.NURSE ---
Please see paper chart for complete list of vital signs.
== END 2019-03-12 06:15 | disposition short-term general hospital (02) ==
PROVIDERS: Emergency Provider Emergency Medicine; PCP Internal Medicine
DX: R07.9 Chest pain, unspecified (principal); I47.2 Ventricular tachycardia; Z95.5 Presence of coronary angioplasty implant and graft
CPT/HCPCS: 36415; 71045; 71275; 80048; 80053; 82550; 83690; 84484; 85025; 85379; 93005; 96361; 96365; 96375; 96376; 99285; 99291; 99292; J0282; J1940; J2060; J2270; J2405; J2765; Q9967